=== PATIENT | female | born 1950 | race Caucasian/White ===

== ENCOUNTER 2016-07-12 15:10 | Emergency (ER) | payer MEDICARE ==
[2016-07-12 15:28] VITALS: O2SAT 96
[2016-07-12] MEDS ORDERED: Adacel Vial IM ONE ×2 (15:42→15:44)
--- NOTE | 2016-07-12 15:48 | ERPHSYRPT ---
- History of Present Illness Time Seen by Provider: 07/12/16 15:36 Source: patient, EMS Patient Subjective Stated Complaint: pt arrived ambluance for bleeding poss.from eye, pt has dried blood to face, pt has scant bleeding from tear duct of right eye. pts faced cleansed Triage Nursing Assessment: pt alert and in no distress, resp easy, pt deines nose bleeding, pt not on blood thinners Physician History: CC: bleeding Hx: 65 y/o patient of Dr Ovi Muir with hx of breast CA and congenital rubella. She noted bleeding on her face. Thinks she may have rubbed the eye and it started. She has a small bump on the inner right eyelid where it might have started. Unsure last tetanus buts thinks 7 years ago. 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 No known injury. No nose bleed. No mouth bleeding however the blood was all over. Allergies/Adverse Reactions: amoxicillin [Amoxicillin] Allergy (Mild, Verified 07/12/16 15:28) Home Medications: Dorzolamide HCl [Trusopt] 2 drops OP TID 06/19/12 [History] Latanoprost [Xalatan] 2 drops OP HS 06/19/12 [History] Prochlorperazine Maleate 10 mg [Compazine 10 mg] 10 mg PO Q4-6HPRN PRN 06/19/12 [History] Timolol Maleate 0.5% Eye [Timoptic 0.5% 5 ml Ophthalmic] 1 drop OP DAILY [History] Hx Tetanus, Diphtheria Vaccination/Date Given: Yes Hx Influenza Vaccination/Date Given: Yes Hx Pneumococcal Vaccination/Date Given: Yes Immunizations Up to Date: Yes - Review of Systems Constitutional: No Fever, No Chills Respiratory: No Dyspnea Cardiac: No Chest Pain Abdominal/Gastrointestinal: No Abdominal Pain, No Vomiting - Past Medical History Pertinent Past Medical History: Yes Neurological History: No Pertinent History ENT History: Glaucoma, Other Cardiac History: No Pertinent History Respiratory History: No Pertinent History Endocrine Medical History: No Pertinent History Musculoskeletal History: Arthritis GI Medical History: No Pertinent History History: No Pertinent History Psycho-Social History: No Pertinent History Female Reproductive Disorders: Breast Cancer Other Medical History: blind - Past Surgical History Past Surgical History: Yes Neuro Surgical History: No Pertinent History Cardiac: No Pertinent History Respiratory: No Pertinent History Gastrointestinal: No Pertinent History Genitourinary: No Pertinent History Musculoskeletal: No Pertinent History Female Surgical History: Lumpectomy, Mastectomy Other Surgical History: left breast mastectomy,cvl port placed.,rufus eye surgeries - Social History Smoking Status: Never smoker Exposure to second hand smoke: No Drug Use: none Patient Lives Alone: Yes (assisted living) - Female History Hx Last Menstrual Period: post - Nursing Vital Signs Nursing Vital Signs: Initial Vital Signs Temperature 97.2 F Temperature Source Oral Pulse Rate 106 Respiratory Rate 16 Blood Pressure [Right Arm] 158/94 Pain Intensity 0 - Physical Exam General Appearance: alert Eye Exam: other (left eye cloudy. Right pupil midsized. There is some conjunctival injection. Lesion upper eyelid right medial is not bleeding but could have been the source. No active bleeding here. ) Neck Exam: supple Respiratory Exam: normal breath sounds Cardiovascular Exam: regular rate/rhythm Neurologic Exam: alert, oriented x 3, cooperative Skin Exam: warm, dry SpO2: 96 Oxygen Delivery: Room Air - Course Nursing assessment & vital signs reviewed: Yes Ordered Tests: Active Orders 24 hr Category Date Time Status Wound Care STAT Care 07/12/16 15:42 Active CBC W DIFF Stat Lab 07/12/16 16:00 Completed PROTIME WITH INR Stat Lab 07/12/16 16:00 Completed PTT Stat Lab 07/12/16 16:00 Completed Medication Summary Discontinued Medications Generic Name Dose Route Start Last Admin Trade Name Freq PRN Reason Stop Dose Admin Diphtheria/Tetanus/Acell Pertussis 0.5 ml 07/12/16 15:42 07/12/16 15:45 Adacel Vial IM 07/12/16 15:43 0.5 ml .ONCE ONE Administration Diphtheria/Tetanus/Acell Pertussis Confirm 07/12/16 15:44 Adacel Vial Administered 07/12/16 15:45 Dose 0.5 ml IM .STK-MED ONE Lab/Rad Data: Laboratory Result Diagrams 07/12/16 16:00 Laboratory Results 07/12/16 07/12/16 Range/Units 16:00 16:00 WBC 4.9 (4.0-10.5) K/mm3 RBC 3.78 L (4.1-5.4) M/mm3 Hgb 13.6 (12.0-16.0) gm/dl Hct 38.3 (35-47) % MCV 101.3 H (78-100) fl MCH 35.9 H (26-32) pg MCHC 35.5 (32-36) g/dl RDW 15.1 H (11.5-14.0) % Plt Count 123 L (150-450) K/mm3 MPV 9.5 (6-9.5) fl Gran % 48.9 (36.0-66.0) % Lymphocytes % 25.6 (24.0-44.0) % Monocytes % 20.4 H (0.0-12.0) % Eosinophils % 4.7 (0.00-5.0) % Basophils % 0.4 (0.0-0.4) % Basophils # 0.02 (0-0.4) INR 1.06 (0.8-3.0) PTT 37.3 H (25.3-37.0) SECONDS - Progress Progress Note: 07/12/16 16:56 No further bleeding. Labs reviewed. Advised hold pressure for recurrent bleeding. Advised needs lesion rechecked as may need removal or biopsy. Will return to assisted living. Counseled pt/family regarding: lab results, diagnosis, need for follow-up - Departure Time of Disposition: 16:57 Departure Disposition: Home Clinical Impression: papular lesion right eyelid, hemorrhage right eyelid Condition: Stable Critical Care Time: No Referrals: NATALIA MUIR [ACTIVE STAFF] - Instructions: Removal of Foreign Body From Skin Additional Instructions: Hold pressure for any bleeding. Have Dr Muir check eye lesion in next 2 weeks. REturn for problems or concerns. Do not rub eye. TdaP tetanus vaccine was updated today.
[2016-07-12 16:15] LABS: BASOPHIL % 0.4 % (0.0-0.4); Eosinophil % 4.7 % (0.00-5.0); Granulocytes % 48.9 % (36.0-66.0); Lymphocytes % 25.6 % (24.0-44.0); Mean Cell Volume 101.3 fl (78-100); Mean Platelet Volume 9.5 fl (6-9.5); Monocytes % 20.4 % (0.0-12.0); Platelet Count 123 K/mm3 (150-450); Red Blood Count 3.78 M/mm3 (4.1-5.4); Red Cell Distribution Width 15.1 % (11.5-14.0); White Blood Count 4.9 K/mm3 (4.0-10.5)
[2016-07-12 16:16] LABS: Mean Corpuscular Hemoglobin 35.9 pg (26-32)
[2016-07-12 16:39] LABS: INR 1.06 (0.8-3.0); PROTIME 11.9 SECONDS (9.95-12.35)
[2016-07-12 16:42] LABS: PTT 37.3 SECONDS (25.3-37.0)
[2016-07-12 17:26] VITALS: BP 134/105; PULSE 109
== END 2016-07-12 17:55 | disposition home or self-care (01) ==
LOC: ED 15:10
DX: H02.89 Other specified disorders of eyelid (principal)
CPT/HCPCS: 36415; 85025; 85610; 85730; 90471; 90715; 99282; 99283

== ENCOUNTER 2016-09-07 17:35 | Emergency (ER) | payer MEDICARE ==
[2016-09-07] MEDS ORDERED: TYLENOL 325 MG PO STA (17:54)
--- NOTE | 2016-09-07 17:59 | ERPHSYRPT ---
- History of Present Illness Time Seen by Provider: 09/07/16 17:48 Source: patient Exam Limitations: clinical condition Patient Subjective Stated Complaint: fall Triage Nursing Assessment: fell at noon today gettign off a bus and sprained rt ankle. was walking to dining room anf fell in hallway. swelling noted to rt eye with bruising. abrasion to rt forehead. no other injuries. good sensation to rt ankle. bilat swelling to ankles noted. Physician History: PATIENT WITH HISTORY OF CLINICAL BLINDNESS SINCE , TWISTED HER RIGHT ANKLE WHILE GETTING OFF BUS AT [place] TODAY, THEN TRIPPED ONTO RUG WHILE AMBULATING TO DINNING ROOM STRUCK HER FACE ONTO FLOOR. PATIENT HAS PAIN AND SWELLING BELOW RIGHT EYE. DENIES HEADACHE, NECK PAIN, NUMBNESS, TINGLING OR WEAKNESS IN EXTREMITIES. Occurred: this afternoon Reason for Fall: tripped Injuries/Pain Location: face Loss of Consciousness: no loss of consciousness Severity of Pain-Max: mild Severity of Pain-Current: mild Modifying Factors: Improves With: nothing Associated Symptoms (Fall): other (RIGHT ANKLE PAIN, SWELLING) Allergies/Adverse Reactions: amoxicillin [Amoxicillin] Allergy (Mild, Verified 09/07/16 17:42) Home Medications: Dorzolamide HCl [Trusopt] 2 drops OP TID 06/19/12 [History] Latanoprost [Xalatan] 2 drops OP HS 06/19/12 [History] Timolol Maleate 0.5% Eye [Timoptic 0.5% 5 ml Ophthalmic] 1 drop OP DAILY [History] Hx Tetanus, Diphtheria Vaccination/Date Given: Yes Hx Influenza Vaccination/Date Given: No Hx Pneumococcal Vaccination/Date Given: No Immunizations Up to Date: Yes - Review of Systems Constitutional: No Fever, No Chills Eyes: Other (PAIN, SWELLING BELOW EYE) Ears, Nose, & Throat: No Symptoms Respiratory: No Symptoms, No Cough, No Dyspnea Cardiac: No Symptoms, No Chest Pain, No Edema, No Syncope Abdominal/Gastrointestinal: No Symptoms, No Abdominal Pain, No Nausea, No Vomiting, No Diarrhea Genitourinary Symptoms: No Symptoms, No Dysuria Musculoskeletal: Injury, Joint Pain, Joint Swelling, No Back Pain, No Neck Pain Skin: No Rash Neurological: No Dizziness, No Focal Weakness, No Sensory Changes Psychological: No Symptoms Endocrine: No Symptoms All Other Systems: Reviewed and Negative - Past Medical History Pertinent Past Medical History: Yes Neurological History: No Pertinent History ENT History: Glaucoma, Other Cardiac History: No Pertinent History Respiratory History: No Pertinent History Endocrine Medical History: No Pertinent History Musculoskeletal History: Arthritis GI Medical History: No Pertinent History History: No Pertinent History Psycho-Social History: No Pertinent History Female Reproductive Disorders: Breast Cancer 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 - Past Surgical History Past Surgical History: Yes Neuro Surgical History: No Pertinent History Cardiac: No Pertinent History Respiratory: No Pertinent History Gastrointestinal: No Pertinent History Genitourinary: No Pertinent History Musculoskeletal: No Pertinent History Female Surgical History: Lumpectomy, Mastectomy Other Surgical History: left breast mastectomy,cvl port placed.,rufus eye surgeries - Social History Smoking Status: Never smoker Exposure to second hand smoke: No Drug Use: none Patient Lives Alone: No - Nursing Vital Signs Nursing Vital Signs: Initial Vital Signs Temperature Source Oral Pulse Rate 117 Respiratory Rate 18 Blood Pressure [] 164/94 Pain Intensity 4 - Nena Coma Score Best Eye Response (Nena): (4) open spontaneously Best Verbal Response (Nena): (5) oriented Best Motor Response (Nena): (6) obeys commands L[place] Total: 15 - Physical Exam General Appearance: no apparent distress, alert Head Injury: no evidence of injury Eye Exam: PERRL/EOMI, other (RIGHT INFRAORBITAL SWELLING ECCHYMOSIS, NO FACIAL OR ORBITAL CREPITUS) ENT Exam: airway nml Neck Exam: normal inspection, No tenderness Respiratory/Chest Exam: normal breath sounds, No chest tenderness, No respiratory distress Cardiovascular Exam: normal heart sounds, regular rate/rhythm Gastrointestinal Exam: soft, No tenderness, No distention, No guarding, No ecchymosis Back Exam: normal inspection, No vertebral tenderness Extremity Exam: normal inspection, normal range of motion, pelvis stable, No deformities Peripheral Pulses: carotid (R): 2+, carotid (L): 2+, femoral (R): 2+, femoral (L ): 2+, dorsalis-pedis (R): 2+, dorsalis-pedis (L): 2+ Neurologic Exam: alert, oriented x 3, cooperative, sensation nml, No motor deficits Skin Exam: normal color, warm, dry SpO2 Interpretation: normal SpO2: 95 Oxygen Delivery: Room Air - CT Exams Head CT Interpretation: Tele-radiologist Report, No/Intracranial Hemorrhag Maxillofacial Bones CT Interpretation: Tele-radiologist Report (THERE IS SOFT TISSUE SWELLING/ HEMATOMA OVER THE RIGHT INFERIOR ORBIT AND MAXILLA, NO ASSOCIATE FRACTURE, THE RIGHT GLOBE IS INTACT ) Ordered Tests: Active Orders 24 hr Category Date Time Status ANKLE (3 VIEWS) Stat Exams 09/07/16 17:51 Taken FACIAL BONES WO CONTRAST [CT] Stat Exams 09/07/16 17:52 Taken HEAD WITHOUT CONTRAST [CT] Stat Exams 09/07/16 17:52 Taken Medication Summary Discontinued Medications Generic Name Dose Route Start Last Admin Trade Name Freq PRN Reason Stop Dose Admin Acetaminophen 650 mg 09/07/16 17:54 09/07/16 18:01 Tylenol 325 Mg PO 09/07/16 17:55 650 mg STAT STA Administration Acetaminophen Confirm 09/07/16 18:01 Tylenol 325 Mg Administered 09/07/16 18:02 Dose 650 mg .ROUTE .STK-MED ONE - Progress Progress: pain not gone completely Progress Note: 09/07/16 18:00 PATIENT GIVEN TYLENOL 650MG ORALLY Counseled pt/family regarding: diagnosis, rad results - Departure Time of Disposition: 20:35 Departure Disposition: Home Clinical Impression: RIGHT INFRAORBITAL CONTUSION, RIGHT ANKLE STRAIN Condition: Stable Critical Care Time: No Referrals: NATALIA MUIR [Primary Care Provider] - Additional Instructions: APPLY ICE OVER FACIAL AND ANKLE SWELLING EVERY 4 HOURS, FOR 30 MINUTES WITH A DURATION 48 HOURS. TYLENOL EVERY 4 HOURS FOR PAIN NEEDED. CONTINUE TO AMBULATE WITH CANE ASSISTANCE.
[2016-09-07] MEDS ORDERED: TYLENOL 325 MG ONE (18:01)
[2016-09-07 20:50] VITALS: BP 134/75; PULSE 73; O2SAT 100
--- NOTE | 2016-09-08 08:36 | XRAY ---
Indication: Right facial swelling and bruising following fall. Multiple contiguous axial images obtained through the head without contrast. Comparison: June 29, 2007. There is age-appropriate global atrophy and mild periventricular degenerative micro-ischemia bilaterally. No acute intracranial hemorrhage, abnormal extra-axial fluid collection, or mass effect. Stable empty sella. Fourth ventricle is midline. Bony calvarium intact. Visualized paranasal sinuses and mastoid air cells are pneumatized and clear. CT facial bones reported separately. Impression: 1. Nonacute senile brain. 2. Again anatomic variant for empty sella. Comment: Preliminary interpretation was made by [facility]. No discrepancy. CT DI 47.52
--- NOTE | 2016-09-08 08:42 | XRAY ---
Indication: Right facial swelling and bruising following fall. Multiple contiguous axial images obtained through the facial bones. Coronal reformatted images obtained. Comparison: None. Multiple bilateral dental amalgams produces beam artifact limiting this level. Study is also slightly degraded by motion artifact. Large area of right facial/maxilla soft tissue swelling. No acute fracture or suspicious bony lesions. Left orbit appears clinically deformed with extraorbital metallic density presumed postsurgical. Paranasal sinuses are pneumatized and clear. Minimal nasal septal deviation to the left. CT head reported separately. Impression: 1. Motion artifact. 2. Right facial soft tissue swelling. No acute fracture. 3. Chronic post surgical changes left orbit. Comment: Preliminary interpretation was made by [facility]. No discrepancy. CT DI 59.47
--- NOTE | 2016-09-08 08:45 | XRAY ---
Indication: Pain and swelling following fall. Comparison: None 3 views of the right ankle demonstrates diffuse soft tissue swelling, mild osteopenia, and spurring of the anterior talus. No other bony, articular, or soft tissue abnormalities.
== END 2016-09-07 20:50 | disposition home or self-care (01) ==
LOC: ED 17:35
DX: S00.83XA Contusion of other part of head, initial encounter (principal); S93.401A Sprain of unspecified ligament of right ankle, initial encounter; V79.3XXA Bus occupant (driver) (passenger) injured in unspecified nontraffic accident, initial encounter; H54.0 Blindness, both eyes
CPT/HCPCS: 70450; 70486; 73610; 99284; A9270-GY

== ENCOUNTER 2017-08-20 08:35 | Emergency (ER) | payer MEDICARE ==
[2017-08-20] MEDS ORDERED: Zofran 4 MG/2 ML VIAL IV ONE (08:37)
[2017-08-20] MEDS ORDERED: MORPHINE SULFATE 4 MG INJ IV ONE ×2 (08:38→10:34)
--- NOTE | 2017-08-20 08:44 | ERPHSYRPT ---
- History of Present Illness Time Seen by Provider: 08/20/17 08:36 Source: patient, EMS Physician History: 66 y/o female brought in from [facility] for fall that occurred this morning. Pt mentions she was walking to the bathroom when she felt dizzy, had leg weakness and fell on her right hip. Pt was found on the floor and is not able to put weight on the leg. Pt describes the pain as sharp, constant, 8/10, worse with minimal movement and pt has not taken any pain meds. Pt denies hitting her head but she has lips with dried up blood. No LOC and the patient is not on any blood thinners. Occurred: just prior to arrival Reason for Fall: became dizzy Injuries/Pain Location: pelvis, lower extremity Loss of Consciousness: no loss of consciousness Quality: sharpness Severity of Pain-Max: severe Severity of Pain-Current: severe Modifying Factors: Improves With: nothing Allergies/Adverse Reactions: amoxicillin [Amoxicillin] Allergy (Mild, Verified 08/20/17 09:01) Home Medications: Dorzolamide HCl [Trusopt] 2 drops OP TID 06/19/12 [History] Latanoprost [Xalatan] 2 drops OP HS 06/19/12 [History] Timolol Maleate 0.5% Eye [Timoptic 0.5% 5 ml Ophthalmic] 1 drop OP DAILY [History] Hx Tetanus, Diphtheria Vaccination/Date Given: Yes Hx Influenza Vaccination/Date Given: No Hx Pneumococcal Vaccination/Date Given: No - Review of Systems Constitutional: No Fever, No Chills Eyes: No Symptoms Ears, Nose, & Throat: No Symptoms Respiratory: No Cough, No Dyspnea Cardiac: No Chest Pain, No Edema, No Syncope Abdominal/Gastrointestinal: No Abdominal Pain, No Nausea, No Vomiting, No Diarrhea Genitourinary Symptoms: No Dysuria Musculoskeletal: Fall, Injury, Joint Pain, No Back Pain, No Neck Pain Skin: No Rash Neurological: Dizziness, No Focal Weakness, No Sensory Changes Psychological: No Symptoms Endocrine: No Symptoms All Other Systems: Reviewed and Negative - Past Medical History Pertinent Past Medical History: Yes Neurological History: No Pertinent History ENT History: Glaucoma, Other Cardiac History: No Pertinent History Respiratory History: No Pertinent History Endocrine Medical History: No Pertinent History Musculoskeletal History: Arthritis GI Medical History: No Pertinent History History: No Pertinent History Psycho-Social History: No Pertinent History Female Reproductive Disorders: Breast Cancer 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 - Past Surgical History Past Surgical History: Yes Neuro Surgical History: No Pertinent History Cardiac: No Pertinent History Respiratory: No Pertinent History Gastrointestinal: No Pertinent History Genitourinary: No Pertinent History Musculoskeletal: No Pertinent History Female Surgical History: Lumpectomy, Mastectomy Other Surgical History: left breast mastectomy,cvl port placed.,rufus eye surgeries - Social History Smoking Status: Never smoker Exposure to second hand smoke: No Drug Use: none Patient Lives Alone: No - Nursing Vital Signs Nursing Vital Signs: Initial Vital Signs Temperature 97.6 F 08/20/17 08:42 Pulse Rate 82 08/20/17 08:42 Respiratory Rate 20 08/20/17 08:42 Blood Pressure 165/92 08/20/17 08:42 O2 Sat by Pulse Oximetry 90 L 08/20/17 08:42 Pain Scale Pain Intensity 4 - [place] Coma Score Best Eye Response ([place]): (4) open spontaneously Best Verbal Response (Nena): (5) oriented Best Motor Response (Nena): (6) obeys commands Nena Total: 15 - Physical Exam General Appearance: no apparent distress, alert Head Injury: no evidence of injury Eye Exam: PERRL/EOMI ENT Exam: airway nml Neck Exam: normal inspection, No tenderness Respiratory/Chest Exam: normal breath sounds, No chest tenderness, No respiratory distress Cardiovascular Exam: normal heart sounds, regular rate/rhythm Gastrointestinal Exam: soft, No tenderness, No distention, No guarding, No ecchymosis Back Exam: normal inspection, No vertebral tenderness Extremity Exam: pelvis stable, hip tenderness, pain with movement, other ( tenderness of right hip and right femur), No deformities Neurologic Exam: alert, oriented x 3, cooperative, sensation nml, No motor deficits Skin Exam: normal color, warm, dry - Course Nursing assessment & vital signs reviewed: Yes EKG Interpreted by Me: RATE, NORMAL AXIS, NORMAL INTERVALS, NORMAL QRS, NORMAL ST-T Ordered Tests: Active Orders 24 hr Category Date Time Status Catheter-[place] Brown STAT Care 08/20/17 08:37 Active EKG-ER Only STAT Care 08/20/17 08:37 Active IV Insertion STAT Care 08/20/17 08:37 Active Oxygen-ED Only NASAL CANNULA 2 lpm Care 08/20/17 09:18 Active CHEST 1 VIEW (PORTABLE) Stat Exams 08/20/17 08:38 Taken FEMUR (1V) Stat Exams 08/20/17 10:39 Taken HEAD WITHOUT CONTRAST [CT] Stat Exams 08/20/17 08:38 Taken HIP UNI (2V) INCL PEL IF DONE Stat Exams 08/20/17 10:39 Taken CBC W DIFF Stat Lab 08/20/17 08:50 Completed CMP Stat Lab 08/20/17 08:50 Completed Manual Differential NC Stat Lab 08/20/17 08:50 Completed PT INR [PROTIME WITH INR] Stat Lab 08/20/17 08:50 Completed PTT Stat Lab 08/20/17 08:50 Completed TROPONIN Q3H Lab 08/20/17 08:50 Completed TROPONIN Q3H Lab 08/20/17 11:45 Ordered TROPONIN Q3H Lab 08/20/17 14:45 Ordered TROPONIN Q3H Lab 08/20/17 17:45 Ordered TROPONIN Q3H Lab 08/20/17 20:45 Ordered UA W/ MICROSCOPIC Stat Lab 08/20/17 11:15 Results Medication Summary Generic Name Dose Route Start Last Admin Trade Name Freq PRN Reason Stop Dose Admin Sodium Chloride 1,000 mls @ 100 mls/hr 08/20/17 08:45 08/20/17 09:05 Sodium Chloride 0.9% 1000 Ml IV 09/19/17 08:44 100 mls/hr .Q10H MOSES Administration Discontinued Medications Generic Name Dose Route Start Last Admin Trade Name Freq PRN Reason Stop Dose Admin Morphine Sulfate 4 mg 08/20/17 08:38 08/20/17 09:05 Morphine Sulfate 4 Mg Inj IV 08/20/17 08:39 4 mg STAT ONE Administration Morphine Sulfate Confirm 08/20/17 09:01 Morphine Sulfate 4 Mg Inj Administered 08/20/17 09:02 Dose 4 mg .ROUTE .STK-MED ONE Morphine Sulfate 4 mg 08/20/17 10:34 08/20/17 10:39 Morphine Sulfate 4 Mg Inj IV 08/20/17 10:35 4 mg STAT ONE Administration Morphine Sulfate Confirm 08/20/17 10:38 Morphine Sulfate 4 Mg Inj Administered 08/20/17 10:39 Dose 4 mg .ROUTE .STK-MED ONE Ondansetron HCl 4 mg 08/20/17 08:37 08/20/17 09:05 Zofran 4 Mg/2 Ml Vial IV 08/20/17 08:38 4 mg STAT ONE Administration Ondansetron HCl Confirm 08/20/17 09:01 Zofran 4 Mg/2 Ml Vial Administered 08/20/17 09:02 Dose 4 mg .ROUTE .STK-MED ONE Lab/Rad Data: Laboratory Result Diagrams 08/20/17 08:50 08/20/17 08:50 Laboratory Results 08/20/17 08/20/17 08/20/17 Range/Units 11:15 08:50 08:50 WBC (4.0-10.5) K/mm3 RBC (4.1-5.4) M/mm3 Hgb (12.0-16.0) gm/dl Hct (35-47) % MCV (78-100) fl MCH (26-32) pg MCHC (32-36) g/dl RDW (11.5-14.0) % Plt Count (150-450) K/mm3 MPV (6-9.5) fl Absolute Granulocytes (1.4-6.9) Segmented Neutrophils (36.0-66.0) % Lymphocytes (Manual) (24-44) % Monocytes (Manual) (0.0-12.0) % Eosinophils (Manual) (0.00-3.0) % Differential Comment Platelet Estimate (NORMAL) Anisocytosis INR 1.12 (0.8-3.0) APTT 38.6 H (25.3-37.0) SECONDS Sodium (137-145) mmol/L Potassium (3.5-5.1) mmol/L Chloride (98-107) mmol/L Carbon Dioxide (22-30) mmol/L Anion Gap (5-15) MEQ/L BUN (7-17) mg/dL Creatinine (0.52-1.04) mg/dL Estimated GFR ML/MIN Glucose (74-106) mg/dL Calcium (8.4-10.2) mg/dL Total Bilirubin (0.2-1.3) mg/dL AST (14-36) U/L ALT (0-35) U/L Alkaline Phosphatase (38-126) U/L Troponin I < 0.012 (0.000-0.034) ng/mL Serum Total Protein (6.3-8.2) g/dL Albumin (3.5-5.0) g/dL Ur Collection Type CATH Urine Color YELLOW (YELLOW) Urine Appearance CLOUDY (CLEAR) Urine pH 7.0 (5-6) Ur Specific [place] 1.015 (1.005-1.025) Urine Protein NEGATIVE (Negative) Urine Ketones NEGATIVE (NEGATIVE) Urine Blood 5-10 (0-5) Danilo/ul Urine Nitrite NEGATIVE (NEGATIVE) Urine Bilirubin NEGATIVE (NEGATIVE) Urine Urobilinogen NORMAL (0-1) mg/dL Ur Leukocyte Esterase TRACE (NEGATIVE) Urine Culture Reflexed Pending Urine Glucose NEGATIVE (NEGATIVE) mg/dL Specimen Received 115 08/20/17 08/20/17 08/20/17 Range/Units 08:50 08:50 WBC 5.2 (4.0-10.5) K/mm3 RBC 3.62 L (4.1-5.4) M/mm3 Hgb 13.1 (12.0-16.0) gm/dl Hct 37.4 (35-47) % MCV 103.3 H (78-100) fl MCH 36.1 H (26-32) pg MCHC 35.0 (32-36) g/dl RDW 15.6 H (11.5-14.0) % Plt Count 154 (150-450) K/mm3 MPV 8.8 (6-9.5) fl Absolute Granulocytes 3.02 (1.4-6.9) Segmented Neutrophils 61 (36.0-66.0) % Lymphocytes (Manual) 25 (24-44) % Monocytes (Manual) 12 (0.0-12.0) % Eosinophils (Manual) 2 (0.00-3.0) % Differential Comment ABNORMAL Platelet Estimate NORMAL (NORMAL) Anisocytosis 1+ INR (0.8-3.0) APTT (25.3-37.0) SECONDS Sodium 143 (137-145) mmol/L Potassium 3.8 (3.5-5.1) mmol/L Chloride 108 H (98-107) mmol/L Carbon Dioxide 25 (22-30) mmol/L Anion Gap 13.8 (5-15) MEQ/L BUN 13 (7-17) mg/dL Creatinine 0.63 (0.52-1.04) mg/dL Estimated GFR > 60 ML/MIN Glucose 95 (74-106) mg/dL Calcium 9.6 (8.4-10.2) mg/dL Total Bilirubin 1.30 (0.2-1.3) mg/dL AST 67 H (14-36) U/L ALT 32 (0-35) U/L Alkaline Phosphatase 283 H (38-126) U/L Troponin I (0.000-0.034) ng/mL Serum Total Protein 8.2 (6.3-8.2) g/dL Albumin 3.8 (3.5-5.0) g/dL Ur Collection Type Urine Color (YELLOW) Urine Appearance (CLEAR) Urine pH (5-6) Ur Specific [place] (1.005-1.025) Urine Protein (Negative) Urine Ketones (NEGATIVE) Urine Blood (0-5) Danlio/ul Urine Nitrite (NEGATIVE) Urine Bilirubin (NEGATIVE) Urine Urobilinogen (0-1) mg/dL Ur Leukocyte Esterase (NEGATIVE) Urine Culture Reflexed Urine Glucose (NEGATIVE) mg/dL Specimen Received - Progress Progress: improved Progress Note: 08/20/17 11:28 The x ray of the hip shows an acute right femoral neck fracture. The rest of the labs and image studies are within normal limits. The patient has relief of pain after receiving morphine 4mg X 2 doses. Pt has been accepted by orthopedics , Dr Macias and ER physician, Dr Magaña at [facility]. - Departure Time of Disposition: 11:31 Departure Disposition: Transfer Clinical Impression: Femoral neck fracture Qualifiers: Encounter type: initial encounter Fracture type: closed Laterality: right Qualified Code(s): S72.001A - Fracture of unspecified part of neck of right femur, initial encounter for closed fracture Condition: Stable Critical Care Time: No Referrals: VIKI BARBOZA [Primary Care Provider] -
[2017-08-20] MEDS ORDERED: Sodium Chloride 0.9% 1000 ML 1,000 ML IV SCH (08:45)
[2017-08-20] MEDS ORDERED: Zofran 4 MG/2 ML VIAL ONE (09:01)
[2017-08-20] MEDS ORDERED: MORPHINE SULFATE 4 MG INJ ONE ×2 (09:01→10:38)
[2017-08-20] MEDS ORDERED: Sodium Chloride 0.9% 1000 ML 1,000 ML ONE (09:02)
[2017-08-20 09:10] LABS: Granulocyte Absolute (ANC) 3.02 (1.4-6.9); Hematocrit 37.4 % (35-47); Hemoglobin 13.1 gm/dl (12.0-16.0); Mean Cell Volume 103.3 fl (78-100); Mean Platelet Volume 8.8 fl (6-9.5); Platelet Count 154 K/mm3 (150-450); Red Blood Count 3.62 M/mm3 (4.1-5.4); Red Cell Distribution Width 15.6 % (11.5-14.0); White Blood Count 5.2 K/mm3 (4.0-10.5)
[2017-08-20 09:13] LABS: Mean Corpuscular Hemoglobin 36.1 pg (26-32)
[2017-08-20 09:15] LABS: ALBUMIN 3.8 g/dL (3.5-5.0); ALKALINE PHOSPHATASE 283 U/L (38-126); ANION GAP 13.8 MEQ/L (5-15); BLOOD UREA NITROGEN 13 mg/dL (7-17); CHLORIDE 108 mmol/L (98-107); Calcium 9.6 mg/dL (8.4-10.2); Carbon Dioxide 25 mmol/L (22-30); Creatinine 1 0.63 mg/dL (0.52-1.04); Glucose 95 mg/dL (74-106); Potassium 3.8 mmol/L (3.5-5.1); SGOT/AST 67 U/L (14-36); SGPT/ALT 32 U/L (0-35); SODIUM 143 mmol/L (137-145); Total Protein 8.2 g/dL (6.3-8.2)
[2017-08-20 09:21] LABS: PTT 38.6 SECONDS (25.3-37.0)
[2017-08-20 09:22] LABS: INR 1.12 (0.8-3.0)
[2017-08-20 09:36] LABS: ANISOCYTOSIS 1+; Eosinophil 2 % (0.00-3.0); Lymphocytes 25 % (24-44); Monocyte 12 % (0.0-12.0); Neutrophils 61 % (36.0-66.0); Platelet Estimate NORMAL (NORMAL); Total Cells Counted 100
[2017-08-20 11:26] LABS: Appearance CLOUDY (CLEAR); Bilirubin NEGATIVE (NEGATIVE); Glucose NEGATIVE (NEGATIVE); Ketones NEGATIVE (NEGATIVE); Leukocyte Esterase TRACE (NEGATIVE); Nitrite NEGATIVE (NEGATIVE); Protein,Urine Dip NEGATIVE (Negative); Specific Gravity 1.015 (1.005-1.025); Urobilinogen NORMAL mg/dL (0-1)
[2017-08-20 11:43] VITALS: BP 163/97; PULSE 90; O2SAT 94
[2017-08-20 12:03] LABS: Bacteria MANY /HPF (NEGATIVE); WBC 0-2 /HPF (0-5)
--- NOTE | 2017-08-20 20:48 | XRAY ---
Indication: Head injury following fall. Multiple contiguous axial images obtained through the head without contrast as ordered. Comparison: September 07, 2016. Stable age-appropriate global atrophy and mild periventricular degenerative micro-ischemia bilaterally. Again no acute intracranial hemorrhage, abnormal extra-axial fluid collection, or mass effect. Fourth ventricle is midline. Again anatomic variant for empty sella. Bony calvarium intact. Visualized paranasal sinuses and mastoid air cells clear. Left orbit again appears small with sclerotic calcifications and extraorbital foreign body. Impression: 1. Stable nonacute senile brain. 2. Again anatomic variant for empty sella. Comment: Preliminary interpretation was made by [facility]. No discrepancy. CT DI 49.57
--- NOTE | 2017-08-20 20:52 | XRAY ---
Indication: Status post fall. History left breast cancer. Comparison: January 09, 2010. Portable chest demonstrates new bilateral hilar fullness, bilateral lower lobe interstitial alveolar opacities, and small right effusion. Heart is not enlarged for portable technique. New right-sided Port-A-Cath. Bony thorax intact again with mild osteopenia and degenerative changes. Impression: 1. New bilateral lower lobe interstitial alveolar opacities and right effusion. Correlate clinically. 2. New bilateral hilar fullness, adenopathy versus prominent vascularity. CT chest with contrast may yield further information.
--- NOTE | 2017-08-20 20:54 | XRAY ---
Indication: Pain following injury. Comparison: None Single frontal right femur demonstrates moderate knee degenerative changes and mildly displaced acute femur neck fracture. No other bony, articular, or soft tissue abnormalities.
--- NOTE | 2017-08-20 20:57 | XRAY ---
Indication: Pain following fall. Comparison: None AP pelvis and 2 views of the right hip demonstrates mild osteopenia, mildly displaced acute right femur neck fracture, low lumbar degenerative changes, and pelvic vascular calcifications. No other bony, articular, or soft tissue abnormalities. Comment: Preliminary interpretation was made by [facility]. No discrepancy.
== END 2017-08-20 12:23 | disposition short-term general hospital (02) ==
LOC: ED 08:35
DX: S72.001A Fracture of unspecified part of neck of right femur, initial encounter for closed fracture (principal); R42 Dizziness and giddiness; W18.39XA Other fall on same level, initial encounter; Y92.129 Unspecified place in nursing home as the place of occurrence of the external cause
CPT/HCPCS: 36000; 36415; 51702; 70450; 71045; 73502; 73551; 80053; 81000; 84484; 85025; 85610; 85730; 87077; 87086; 93005; 96360; 96361; 96374; 96375; 99285; J2270; J2405

== ENCOUNTER 2019-03-11 18:00 | Emergency (ER) | payer MEDICARE, OTHER ==
--- NOTE | 2019-03-11 18:10 | ERPHSYRPT ---
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 She was not able to put any weight on the left side, so she was brought into the emergency room by ambulance. It appears to be some shortening of the left side of the leg. ( MANUEL,MICHELLE) Allergies/Adverse Reactions: amoxicillin [Amoxicillin] Allergy (Mild, Verified 03/11/19 18:16) Home Medications: Latanoprost [Xalatan] 2 drops OP HS 06/19/12 [History] - Review of Systems Constitutional: No Symptoms Eyes: No Symptoms Ears, Nose, & Throat: No Symptoms Respiratory: No Symptoms Cardiac: No Symptoms Abdominal/Gastrointestinal: No Symptoms Musculoskeletal: Deformity, Fall, Joint Pain - Past Medical History Pertinent Past Medical History: Yes Neurological History: No Pertinent History ENT History: Glaucoma, Other Cardiac History: No Pertinent History Respiratory History: No Pertinent History Endocrine Medical History: No Pertinent History Musculoskeletal History: Arthritis GI Medical History: No Pertinent History History: No Pertinent History Psycho-Social History: No Pertinent History Female Reproductive Disorders: Breast Cancer 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 - Past Surgical History Past Surgical History: Yes Neuro Surgical History: No Pertinent History Cardiac: No Pertinent History Respiratory: No Pertinent History Gastrointestinal: No Pertinent History Genitourinary: No Pertinent History Musculoskeletal: No Pertinent History Female Surgical History: Lumpectomy, Mastectomy Other Surgical History: left breast mastectomy,cvl port placed.,rufus eye surgeries - Social History Smoking Status: Never smoker Exposure to second hand smoke: No Drug Use: none Patient Lives Alone: No - Physical Exam General Appearance: no apparent distress Eyes, Ears, Nose, Throat Exam: normal ENT inspection Neck Exam: normal inspection Cardiovascular/Respiratory Exam: chest non-tender Gastrointestinal/Abdominal Exam: non-tender Back Exam: normal inspection Hips Exam: left: bone tenderness, deformity, limited range of motion, soft tissue tenderness - Nursing Vital Signs Nursing Vital Signs: Initial Vital Signs Temperature 99.1 F 03/11/19 18:07 Pulse Rate 99 H 03/11/19 18:07 Respiratory Rate 18 03/11/19 18:07 Blood Pressure 148/95 03/11/19 18:07 O2 Sat by Pulse Oximetry 97 03/11/19 18:07 Pain Scale Pain Intensity 5 - Course Nursing assessment & vital signs reviewed: Yes - Radiology Exams Hip X-ray Interpretation: Reviewed by me (left hip greater trochanteric fracture), Discussed w/ radiologist, Teleradiologist Report Ordered Tests: Active Orders 24 hr Category Date Time Status Asher [Catheter-Garwin Asher] STAT Care 03/11/19 19:21 Active CHEST 1 VIEW (PORTABLE) Stat Exams 03/11/19 19:23 Taken HIP UNI (2V) INCL PEL IF DONE Stat Exams 03/11/19 18:55 Taken HUMERUS Stat Exams 03/11/19 19:22 Taken CBC Stat Lab 03/11/19 19:38 Completed CMP Stat Lab 03/11/19 19:38 Received CULTURE,URINE Stat Lab 03/11/19 19:58 Ordered PROTIME WITH INR Stat Lab 03/11/19 19:38 Received UA W/RFX UR CULTURE Stat Lab 03/11/19 19:58 Ordered Medication Summary Discontinued Medications Generic Name Dose Route Start Last Admin Trade Name Roderickq PRN Reason Stop Dose Admin Morphine Sulfate 2 mg 03/11/19 19:22 03/11/19 19:33 Morphine Sulfate 2 Mg Inj IV 03/11/19 19:23 2 mg STAT ONE Administration Morphine Sulfate Confirm 03/11/19 19:28 Morphine Sulfate 2 Mg Inj Administered 03/11/19 19:29 Dose 2 mg .ROUTE .STK-MED ONE Ondansetron HCl 4 mg 03/11/19 19:23 03/11/19 19:33 Zofran 4 Mg/2 Ml Vial IV 03/11/19 19:24 4 mg STAT ONE Administration Ondansetron HCl Confirm 03/11/19 19:28 Zofran Odt 4 Mg Administered 03/11/19 19:29 Dose 4 mg .ROUTE .STK-MED ONE Ondansetron HCl Confirm 03/11/19 19:29 Zofran 4 Mg/2 Ml Vial Administered 03/11/19 19:30 Dose 4 mg .ROUTE .STK-MED ONE Lab/Rad Data: Laboratory Result Diagrams 03/11/19 19:38 Laboratory Results 03/11/19 Range/Units 19:38 WBC 4.2 (4.0-10.5) K/mm3 RBC 3.35 L (4.1-5.4) M/mm3 Hgb 12.7 (12.0-16.0) gm/dl Hct 36.9 (35-47) % MCV 110.1 H (78-100) fl MCH 37.9 H (26-32) pg MCHC 34.4 (32-36) g/dl RDW 16.3 H (11.5-14.0) % Plt Count 91 L (150-450) K/mm3 MPV 9.5 (6-9.5) fl - Progress Progress: unchanged, pain not gone completely Discussed with Dr.: Other (Dr Minh Blankenship at [facility]) Will see patient in: ED Counseled pt/family regarding: diagnosis, need for follow-up, rad results - Progress Progress Note: 03/11/19 20:01 dr. kay did not sign this pt out to me. i was told everything ready for pt to be transferred. pt did not have an iv, labs, or cxr. pt needed a asher so i ordered one. pt had some pain, swelling and bruising left shoulder. so i ordered xrays. transfer paperwork not completed so i completed for dr. kay. (CONNER GERONIMO) - Departure Departure Disposition: Transfer ([facility]) Critical Care Time: Yes Critical Care Time(excluding separately billable procedures): Critical 30-74 mins - Departure Clinical Impression: Femoral neck fracture Qualifiers: Encounter type: initial encounter Fracture type: closed Laterality: left Qualified Code(s): S72.002A - Fracture of unspecified part of neck of left femur , initial encounter for closed fracture Condition: Fair Referrals: XAVI KENNEY MD [Primary Care Provider] -
[2019-03-11] MEDS ORDERED: MORPHINE SULFATE 2 MG INJ IV ONE ×2 (19:22→20:32)
[2019-03-11] MEDS ORDERED: Zofran 4 MG/2 ML VIAL IV ONE (19:23)
[2019-03-11] MEDS ORDERED: ZOFRAN ODT 4 MG ONE (19:28)
[2019-03-11] MEDS ORDERED: MORPHINE SULFATE 2 MG INJ ONE ×2 (19:28→20:30)
[2019-03-11] MEDS ORDERED: Zofran 4 MG/2 ML VIAL ONE (19:29)
[2019-03-11 19:39] LABS: Hematocrit 36.9 % (35-47); Hemoglobin 12.7 gm/dl (12.0-16.0); Mean Cell Volume 110.1 fl (78-100); Mean Corpuscular Hemoglobin 37.9 pg (26-32); Mean Corpuscular Hgb Concent. 34.4 g/dl (32-36); Mean Platelet Volume 9.5 fl (6-9.5); Platelet Count 91 K/mm3 (150-450); Red Blood Count 3.35 M/mm3 (4.1-5.4); Red Cell Distribution Width 16.3 % (11.5-14.0); White Blood Count 4.2 K/mm3 (4.0-10.5)
[2019-03-11 19:50] LABS: ALBUMIN 3.8 g/dL (3.5-5.0); ALKALINE PHOSPHATASE 288 U/L (38-126); ANION GAP 13.7 MEQ/L (5-15); BLOOD UREA NITROGEN 11 mg/dL (7-17); CHLORIDE 108 mmol/L (98-107); Calcium 8.9 mg/dL (8.4-10.2); Carbon Dioxide 24 mmol/L (22-30); Creatinine 1 0.59 mg/dL (0.52-1.04); Glucose 111 mg/dL (74-106); Potassium 3.3 mmol/L (3.5-5.1); SGOT/AST 91 U/L (14-36); SGPT/ALT 41 U/L (0-35); SODIUM 142 mmol/L (137-145); Total Protein 8.1 g/dL (6.3-8.2)
[2019-03-11 20:05] VITALS: PULSE 101
[2019-03-11 20:28] LABS: Appearance CLEAR (CLEAR); Bilirubin NEGATIVE (NEGATIVE); Blood MODERATE Ery/ul (0-5); Glucose NEGATIVE (NEGATIVE); Ketones NEGATIVE (NEGATIVE); Leukocyte Esterase NEGATIVE (NEGATIVE); Mucus SLIGHT /HPF (NEGATIVE); Nitrite NEGATIVE (NEGATIVE); Protein,Urine Dip NEGATIVE (Negative); Specific Gravity 1.009 (1.005-1.025); Urobilinogen NEGATIVE mg/dL (0-1); WBC 0-2 /HPF (0-5)
[2019-03-11 20:55] LABS: INR 1.32 (0.8-3.0)
[2019-03-11 21:17] VITALS: BP 150/86; O2SAT 93
[2019-03-12 00:49] LABS: Slide Review YES
--- NOTE | 2019-03-12 09:00 | XRAY ---
Indication: Hip fracture following fall. Comparison: August 20, 2017. Portable chest is rotated without focal infiltrate, consolidation, or large effusion. Heart is not enlarged again with right Port-A-Cath and hilar calcified nodes. Bony thorax intact again with mild osteopenia and degenerative changes. Impression: Nonacute chest with chronic features.
--- NOTE | 2019-03-12 09:02 | XRAY ---
Indication: Pain following fall. Comparison: None AP pelvis and 2 views of the left hip demonstrates mild osteopenia, displaced/angulated acute left femur neck fracture, intact right total hip arthroplasty, and mild vascular calcifications. No other bony, articular, or soft tissue abnormalities.
--- NOTE | 2019-03-12 09:04 | XRAY ---
Indication: Pain following fall. Comparison: None 2 views of the left humerus demonstrate osteopenia, mild AC degenerative arthropathy, and lateral soft tissue swelling. No other bony, articular, or soft tissue abnormalities.
== END 2019-03-11 20:45 | disposition short-term general hospital (02) ==
LOC: ED 18:00
DX: S72.002A Fracture of unspecified part of neck of left femur, initial encounter for closed fracture (principal); M25.552 Pain in left hip; W18.30XA Fall on same level, unspecified, initial encounter; Y93.01 Activity, walking, marching and hiking
CPT/HCPCS: 36000; 36415; 51702; 71045; 73060; 73502; 80053; 81001; 85027; 85610; 87086; 96374; 96375; 96376; 99285; 99291; J2270; J2405; Q0162

== ENCOUNTER 2019-07-20 03:18 | Inpatient (IN) | payer MEDICARE, OTHER ==
[2019-07-20] MEDS ORDERED: Sodium Chloride 0.9% 1000 ML 1,000 ML IV STA ×2 (03:22→05:11)
[2019-07-20] MEDS ORDERED: Zithromax 500 MG/ 250 ML NaCl Premix 500 MG/250 ML IVPB IV STA (03:30)
[2019-07-20] MEDS ORDERED: Vancomycin 1GM/ Ns 250ML*** 250 ML IV ONE ×2 (03:30→03:55)
[2019-07-20] MEDS ORDERED: Sodium Chloride 0.9% 1000 ML 1,000 ML ONE ×2 (03:36→04:42)
[2019-07-20 03:40] LABS: Hematocrit 39.3 % (35-47); Hemoglobin 13.8 gm/dl (12.0-16.0); Mean Cell Volume 108.9 fl (78-100); Mean Corpuscular Hemoglobin 38.2 pg (26-32); Mean Corpuscular Hgb Concent. 35.1 g/dl (32-36); Mean Platelet Volume 9.1 fl (7.5-11.0); Platelet Count 90 K/mm3 (150-450); Red Blood Count 3.61 M/mm3 (4.1-5.4); Red Cell Distribution Width 16.3 % (11.5-14.0); White Blood Count 3.8 K/mm3 (4.0-10.5)
[2019-07-20 03:51] LABS: ALBUMIN 3.3 g/dL (3.5-5.0); ALKALINE PHOSPHATASE 304 U/L (38-126); ANION GAP 11.4 MEQ/L (5-15); BLOOD UREA NITROGEN 19 mg/dL (7-17); CHLORIDE 109 mmol/L (98-107); Calcium 8.9 mg/dL (8.4-10.2); Carbon Dioxide 24 mmol/L (22-30); Creatinine 1 0.88 mg/dL (0.52-1.04); Glucose 89 mg/dL (74-106); Potassium 3.5 mmol/L (3.5-5.1); SGOT/AST 61 U/L (14-36); SGPT/ALT 30 U/L (0-35); SODIUM 141 mmol/L (137-145); Total Protein 7.5 g/dL (6.3-8.2)
[2019-07-20] MEDS ORDERED: Zithromax 500 MG/ 250 ML NaCl Premix 500 MG/250 ML IVPB IV ONE (03:54)
[2019-07-20 04:01] LABS: Lactic Acid 3.8 (0.4-2.0); VBG BASE EXCESS 0.3 (-2.0-2.0); VBG CARBOXYHEMOGLOBIN 2.1 % T HGB (0.0-6.9); VBG HCO3- 24.6 meq/L (22-28); VBG HEMOGLOBIN 14.6; VBG POTASSIUM 3.8 (3.5-5.1); VBG pH 7.42 (7.32-7.42)
[2019-07-20 04:19] LABS: INR 1.25 (0.8-3.0); PROTIME 14.2 SECONDS (9.95-12.35)
--- NOTE | 2019-07-20 04:21 | ERPHSYRPT ---
- History of Present Illness Time Seen by Provider: 07/20/19 03:30 Source: EMS, long term records Exam Limitations: clinical condition Patient Subjective Stated Complaint: per long term report, pt had sudden onset shortness of breath approx 45 minutes prior to arrival at er. [facility] staff states pt had temp and heart rate of 140. Triage Nursing Assessment: pt awake and alert, asnwers questions approp. pt arrive per ambulance and transfers to stretcher with assist of 4. respirations tachy. frequent hacking cough noted. coarse breath sounds to rt. skin hot and dry. heart rate 136 on monitor- sinus tach. Physician History: Patient is a 68-year-old female who is a resident of [facility] and this morning was found to be in respiratory distress. Initial report from the [facility] was the temperature was 105+. EMS found the temperature to be slightly lower at 101.5 core temperature in the ER with 102.5. She is alert and oriented and answers questions appropriately she has a history of left hip fracture muscle weakness hypertension anxiety blindness glaucoma frequent falls allergic rhinitis constipation urinary incontinence and bilateral lower edema she also is noted to have a mastectomy scar on the left and a port. She is coughing frequently and does produce some bright red blood with her cough. Timing/Duration: hour(s) (1), sudden Activities at Onset: sleep Severity of Dyspnea-Max: moderate Severity of Dyspnea-Current: moderate Possible Cause: unknown cause Modifying Factors: Improves With: albuterol nebulizer, coughing, oxygen Associated Symptoms: cough, fever, ankle swelling, productive cough Allergies/Adverse Reactions: amoxicillin [Amoxicillin] Allergy (Mild, Verified 03/11/19 18:16) Home Medications: Latanoprost [Xalatan] 2 drops OP HS 06/19/12 [History] Hx Tetanus, Diphtheria Vaccination/Date Given: Yes Hx Influenza Vaccination/Date Given: No Hx Pneumococcal Vaccination/Date Given: No Immunizations Up to Date: Yes - Review of Systems All Other Systems: Unable due to condition - Past Medical History Pertinent Past Medical History: Yes Neurological History: No Pertinent History ENT History: Glaucoma, Other Cardiac History: No Pertinent History Respiratory History: No Pertinent History Endocrine Medical History: No Pertinent History Musculoskeletal History: Arthritis GI Medical History: No Pertinent History History: No Pertinent History Psycho-Social History: No Pertinent History Female Reproductive Disorders: Breast Cancer 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 - Past Surgical History Past Surgical History: Yes Neuro Surgical History: No Pertinent History Cardiac: No Pertinent History Respiratory: No Pertinent History Gastrointestinal: No Pertinent History Genitourinary: No Pertinent History Musculoskeletal: No Pertinent History Female Surgical History: Lumpectomy, Mastectomy Other Surgical History: left breast mastectomy,cvl port placed.,rufus eye surgeries. lt hip surgery- fx - Social History Smoking Status: Never smoker Exposure to second hand smoke: No Drug Use: none Patient Lives Alone: No - Nursing Vital Signs Nursing Vital Signs: Initial Vital Signs Temperature 102.6 F 07/20/19 03:22 Pulse Rate 134 H 07/20/19 03:22 Respiratory Rate 30 H 07/20/19 03:22 Blood Pressure 126/78 07/20/19 03:22 O2 Sat by Pulse Oximetry 94 L 07/20/19 03:22 Pain Scale Pain Intensity 0 - Physical Exam General Appearance: alert Eye Exam: eyes nml inspection Ears, Nose, Throat Exam: pharyngeal erythema (It is noted in the mouth fairly bright red especially with a cough) Neck Exam: normal inspection, supple Respiratory Exam: respiratory distress, crackles/rales, rhonchi, wheezing Cardiovascular/Chest Exam: normal heart sounds, tachycardia Abdominal/Gastrointestinal Exam: normal bowel sounds, tenderness, No distention , No mass Extremity Exam: non-tender, normal range of motion, normal inspection, no calf tenderness, pedal edema Peripheral Pulses Exam: carotid (R): 2+, carotid (L): 2+ Neurologic Exam: alert, oriented x 3, cooperative, cardiac surgeon II-XII nml as tested, sensation nml, abnormal cardiac surgeon II-XII (Patient is nonvisual), No motor deficits Skin Exam: normal color, warm, No dry Lymphatic Exam: No adenopathy SpO2 Interpretation: borderline oxygenation SpO2: 98 O2 Delivery: BiPap/CPAP - Course Nursing assessment & vital signs reviewed: Yes EKG Interpreted by Me: RATE ([id number]), Sinus Tach, Left [place] Deviation, NORMAL INTERVALS, NORMAL QRS, Non-specific ST Changes - Radiology Exams Chest X-ray Interpretation: Interpreted by me, Pneumonia (Right lower lobe) Ordered Tests: Active Orders 24 hr Category Date Time Status Personal Banker STAT Care 07/20/19 03:23 Active EKG-ER Only STAT Care 07/20/19 03:22 Active Pulse Oximetry (ED) STAT Care 07/20/19 03:22 Active CHEST 1 VIEW (PORTABLE) Stat Exams 07/20/19 03:39 Taken AMYLASE Stat Lab 07/20/19 04:13 Completed BLOOD CULTURE Stat Lab 07/20/19 04:00 Received CBC W DIFF Stat Lab 07/20/19 03:36 Completed CMP Stat Lab 07/20/19 03:36 Completed CULTURE,URINE Stat Lab 07/20/19 04:00 Received LIPASE Stat Lab 07/20/19 04:13 Completed Lactic Acid Stat Lab 07/20/19 03:53 Completed MAGNESIUM Stat Lab 07/20/19 04:13 Completed Manual Differential NC Stat Lab 07/20/19 03:36 Completed PROTIME WITH INR Stat Lab 07/20/19 03:30 Completed PTT Stat Lab 07/20/19 03:30 Completed TROPONIN Q3H Lab 07/20/19 04:11 Completed TROPONIN Q3H Lab 07/20/19 07:00 Ordered TROPONIN Q3H Lab 07/20/19 10:00 Ordered TROPONIN Q3H Lab 07/20/19 13:00 Ordered TROPONIN Q3H Lab 07/20/19 16:00 Ordered TROPONIN Q3H Lab 07/20/19 19:00 Ordered TROPONIN Q3H Lab 07/20/19 22:00 Ordered UA W/RFX UR CULTURE Stat Lab 07/20/19 04:00 Completed VENOUS BLOOD GAS Stat Lab 07/20/19 03:53 Completed Medication Summary Generic Name Dose Route Start Last Admin Trade Name Freq PRN Reason Stop Dose Admin Aztreonam 1 gm in 100 mls @ 200 mls/hr 07/20/19 03:30 07/20/19 05:06 Azactam 1 Gm/100 Ml D5w IV 07/20/19 04:59 200 mls/hr Q1H MOSES 200 mls/hr Administration Sodium Chloride 1,000 mls @ 999 mls/hr 07/20/19 05:11 07/20/19 05:14 Sodium Chloride 0.9% 1000 Ml IV 07/20/19 06:11 999 mls/hr .Q1H1M STA Administration Discontinued Medications Generic Name Dose Route Start Last Admin Trade Name Freq PRN Reason Stop Dose Admin Sodium Chloride 1,000 mls @ 999 mls/hr 07/20/19 03:22 07/20/19 03:51 Sodium Chloride 0.9% 1000 Ml IV 07/20/19 04:22 999 mls/hr .Q1H1M STA Administration Sodium Chloride Confirm 07/20/19 03:36 Sodium Chloride 0.9% 1000 Ml Administered 07/20/19 03:37 Dose 1,000 mls @ ud .ROUTE .STK-MED ONE Vancomycin HCl 250 mls @ 167 mls/hr 07/20/19 03:30 07/20/19 03:55 Vancomycin 1gm/ Ns 250ml IV 07/20/19 04:59 167 mls/hr STAT ONE Administration Azithromycin 500 mg in 250 mls @ 250 mls/hr 07/20/19 03:30 07/20/19 03:56 Zithromax 500 Mg/ 250 Ml Nacl Premix IV 07/20/19 04:29 250 mls/hr STAT STA 250 mls/hr Administration Azithromycin Confirm 07/20/19 03:54 Zithromax 500 Mg/ 250 Ml Nacl Premix Administered 07/20/19 03:55 Dose 500 mg in 250 mls @ ud IV .STK-MED ONE Vancomycin HCl Confirm 07/20/19 03:55 Vancomycin 1gm/ Ns 250ml Administered 07/20/19 03:56 Dose 250 mls @ ud IV .STK-MED ONE Sodium Chloride Confirm 07/20/19 04:42 Sodium Chloride 0.9% 1000 Ml Administered 07/20/19 04:43 Dose 1,000 mls @ ud .ROUTE .STK-MED ONE Lab/Rad Data: Laboratory Result Diagrams 07/20/19 03:36 07/20/19 03:36 Laboratory Results 07/20/19 07/20/19 07/20/19 Range/Units 04:13 04:11 04:01 WBC (4.0-10.5) K/mm3 RBC (4.1-5.4) M/mm3 Hgb (12.0-16.0) gm/dl Hct (35-47) % MCV (78-100) fl MCH (26-32) pg MCHC (32-36) g/dl RDW (11.5-14.0) % Plt Count (150-450) K/mm3 MPV (7.5-11.0) fl PT (9.95-12.35) SECONDS INR (0.8-3.0) APTT (25.3-37.0) SECONDS pO2/FiO2 Ratio % VBG pH (7.32-7.42) VBG pCO2 at Pat Temp (42-55) mm/Hg VBG pO2 at Pat Temp (25-40) mm/Hg VBG HCO3 (22-28) meq/L VBG O2 Sat (Walter) (95-100) VBG Base Excess (-2.0-2.0) VBG Hemoglobin VBG Carboxyhemoglobin (0.0-6.9) % T HGB POC Potassium (3.5-5.1) Sodium (137-145) mmol/L Potassium (3.5-5.1) mmol/L Chloride (98-107) mmol/L Carbon Dioxide (22-30) mmol/L Anion Gap (5-15) MEQ/L BUN (7-17) mg/dL Creatinine (0.52-1.04) mg/dL Estimated GFR ML/MIN Glucose (74-106) mg/dL Lactic Acid (0.4-2.0) Calcium (8.4-10.2) mg/dL Magnesium 1.5 L (1.6-2.3) mg/dL Total Bilirubin (0.2-1.3) mg/dL AST (14-36) U/L ALT (0-35) U/L Alkaline Phosphatase (38-126) U/L Troponin I < 0.012 (0.000-0.034) ng/mL Serum Total Protein (6.3-8.2) g/dL Albumin (3.5-5.0) g/dL Amylase 59 (30-110) U/L Lipase 61 (23-300) U/L Urine Color (YELLOW) Urine Appearance (CLEAR) Urine pH (5-6) Ur Specific [place] (1.005-1.025) Urine Protein (Negative) Urine Ketones (NEGATIVE) Urine Blood (0-5) Danilo/ul Urine Nitrite (NEGATIVE) Urine Bilirubin (NEGATIVE) Urine Urobilinogen (0-1) mg/dL Ur Leukocyte Esterase (NEGATIVE) Urine WBC (Auto) (0-5) /HPF Urine RBC (Auto) (0-2) /HPF U Epithel Cells (Auto) (FEW) /HPF Urine Bacteria (Auto) (NEGATIVE) /HPF Unidentified Crystals (NEGATIVE) /HPF Urine Mucus (Auto) (NEGATIVE) /HPF Urine Culture Reflexed (NO) Urine Glucose (NEGATIVE) mg/dL Influenza Type A Ag NEGATIVE (NEGATIVE) Influenza Type B Ag NEGATIVE (NEGATIVE) RSV (PCR) NEGATIVE (Negative) Group A Strep Antibody NEGATIVE (NEGATIVE) 07/20/19 07/20/19 07/20/19 Range/Units 04:00 03:53 03:36 WBC (4.0-10.5) K/mm3 RBC (4.1-5.4) M/mm3 Hgb (12.0-16.0) gm/dl Hct (35-47) % MCV (78-100) fl MCH (26-32) pg MCHC (32-36) g/dl RDW (11.5-14.0) % Plt Count (150-450) K/mm3 MPV (7.5-11.0) fl PT (9.95-12.35) SECONDS INR (0.8-3.0) APTT (25.3-37.0) SECONDS pO2/FiO2 Ratio 40.0 % VBG pH 7.42 (7.32-7.42) VBG pCO2 at Pat Temp 38 L (42-55) mm/Hg VBG pO2 at Pat Temp 36 (25-40) mm/Hg VBG HCO3 24.6 (22-28) meq/L VBG O2 Sat (Walter) 62.0 L (95-100) VBG Base Excess 0.3 (-2.0-2.0) VBG Hemoglobin 14.6 VBG Carboxyhemoglobin 2.1 (0.0-6.9) % T HGB POC Potassium 3.8 (3.5-5.1) Sodium 141 (137-145) mmol/L Potassium 3.5 (3.5-5.1) mmol/L Chloride 109 H (98-107) mmol/L Carbon Dioxide 24 (22-30) mmol/L Anion Gap 11.4 (5-15) MEQ/L BUN 19 H (7-17) mg/dL Creatinine 0.88 (0.52-1.04) mg/dL Estimated GFR > 60.0 ML/MIN Glucose 89 (74-106) mg/dL Lactic Acid 3.8 H (0.4-2.0) Calcium 8.9 (8.4-10.2) mg/dL Magnesium (1.6-2.3) mg/dL Total Bilirubin 2.80 H (0.2-1.3) mg/dL AST 61 H (14-36) U/L ALT 30 (0-35) U/L Alkaline Phosphatase 304 H (38-126) U/L Troponin I (0.000-0.034) ng/mL Serum Total Protein 7.5 (6.3-8.2) g/dL Albumin 3.3 L (3.5-5.0) g/dL Amylase (30-110) U/L Lipase (23-300) U/L Urine Color YELLOW (YELLOW) Urine Appearance SLIGHTLY CLOUDY (CLEAR) Urine pH 7.0 (5-6) Ur Specific [place] 1.011 (1.005-1.025) Urine Protein 30 (Negative) Urine Ketones NEGATIVE (NEGATIVE) Urine Blood LARGE (0-5) Danilo/ul Urine Nitrite POSITIVE (NEGATIVE) Urine Bilirubin NEGATIVE (NEGATIVE) Urine Urobilinogen 2 (0-1) mg/dL Ur Leukocyte Esterase SMALL (NEGATIVE) Urine WBC (Auto) 26-50 (0-5) /HPF Urine RBC (Auto) >101 (0-2) /HPF U Epithel Cells (Auto) NONE (FEW) /HPF Urine Bacteria (Auto) PACKED (NEGATIVE) /HPF Unidentified Crystals 25-50 (NEGATIVE) /HPF Urine Mucus (Auto) SLIGHT (NEGATIVE) /HPF Urine Culture Reflexed ORDERED SEPARATELY (NO) Urine Glucose NEGATIVE (NEGATIVE) mg/dL Influenza Type A Ag (NEGATIVE) Influenza Type B Ag (NEGATIVE) RSV (PCR) (Negative) Group A Strep Antibody (NEGATIVE) 07/20/19 07/20/19 Range/Units 03:36 03:30 WBC 3.8 L (4.0-10.5) K/mm3 RBC 3.61 L (4.1-5.4) M/mm3 Hgb 13.8 (12.0-16.0) gm/dl Hct 39.3 (35-47) % MCV 108.9 H (78-100) fl MCH 38.2 H (26-32) pg MCHC 35.1 (32-36) g/dl RDW 16.3 H (11.5-14.0) % Plt Count 90 L (150-450) K/mm3 MPV 9.1 (7.5-11.0) fl PT 14.2 H (9.95-12.35) SECONDS INR 1.25 (0.8-3.0) APTT 29.0 (25.3-37.0) SECONDS pO2/FiO2 Ratio % VBG pH (7.32-7.42) VBG pCO2 at Pat Temp (42-55) mm/Hg VBG pO2 at Pat Temp (25-40) mm/Hg VBG HCO3 (22-28) meq/L VBG O2 Sat (Walter) (95-100) VBG Base Excess (-2.0-2.0) VBG Hemoglobin VBG Carboxyhemoglobin (0.0-6.9) % T HGB POC Potassium (3.5-5.1) Sodium (137-145) mmol/L Potassium (3.5-5.1) mmol/L Chloride (98-107) mmol/L Carbon Dioxide (22-30) mmol/L Anion Gap (5-15) MEQ/L BUN (7-17) mg/dL Creatinine (0.52-1.04) mg/dL Estimated GFR ML/MIN Glucose (74-106) mg/dL Lactic Acid (0.4-2.0) Calcium (8.4-10.2) mg/dL Magnesium (1.6-2.3) mg/dL Total Bilirubin (0.2-1.3) mg/dL AST (14-36) U/L ALT (0-35) U/L Alkaline Phosphatase (38-126) U/L Troponin I (0.000-0.034) ng/mL Serum Total Protein (6.3-8.2) g/dL Albumin (3.5-5.0) g/dL Amylase (30-110) U/L Lipase (23-300) U/L Urine Color (YELLOW) Urine Appearance (CLEAR) Urine pH (5-6) Ur Specific [place] (1.005-1.025) Urine Protein (Negative) Urine Ketones (NEGATIVE) Urine Blood (0-5) Danilo/ul Urine Nitrite (NEGATIVE) Urine Bilirubin (NEGATIVE) Urine Urobilinogen (0-1) mg/dL Ur Leukocyte Esterase (NEGATIVE) Urine WBC (Auto) (0-5) /HPF Urine RBC (Auto) (0-2) /HPF U Epithel Cells (Auto) (FEW) /HPF Urine Bacteria (Auto) (NEGATIVE) /HPF Unidentified Crystals (NEGATIVE) /HPF Urine Mucus (Auto) (NEGATIVE) /HPF Urine Culture Reflexed (NO) Urine Glucose (NEGATIVE) mg/dL Influenza Type A Ag (NEGATIVE) Influenza Type B Ag (NEGATIVE) RSV (PCR) (Negative) Group A Strep Antibody (NEGATIVE) - Progress Progress: improved Air Movement: fair Blood Culture(s) Obtained: Yes Antibiotics given: Yes Discussed with : Yoan Will see patient in: hospital (full admit) - Departure Departure Disposition: In-patient Admission Clinical Impression: Sepsis, Pneumonia, UTI (urinary tract infection) Condition: Critical Critical Care Time: Yes Critical Care Time(excluding separately billable procedures): Critical 105-134 mins Referrals: JENNY ARITA [Primary Care Provider] -
[2019-07-20 04:22] LABS: MAGNESIUM 1.5 mg/dL (1.6-2.3)
[2019-07-20 04:32] LABS: Appearance SLIGHTLY CLOUDY (CLEAR); Bacteria PACKED /HPF (NEGATIVE); Bilirubin NEGATIVE (NEGATIVE); Blood LARGE Ery/ul (0-5); Crystals Unidentified 25-50 /HPF (NEGATIVE); Glucose NEGATIVE (NEGATIVE); Ketones NEGATIVE (NEGATIVE); Leukocyte Esterase SMALL (NEGATIVE); Mucus SLIGHT /HPF (NEGATIVE); Nitrite POSITIVE (NEGATIVE); Protein,Urine Dip 30 (Negative); Specific Gravity 1.011 (1.005-1.025); Urobilinogen 2 mg/dL (0-1); WBC 26-50 /HPF (0-5)
[2019-07-20 05:00] LABS: RBC >101 /HPF (0-2)
[2019-07-20 05:04] LABS: Group A Strep NEGATIVE (NEGATIVE); INFLUENZA A NEGATIVE (NEGATIVE); INFLUENZA B NEGATIVE (NEGATIVE); RESPIRATORY SYNCTIAL VIRUS NEGATIVE (Negative)
[2019-07-20] MEDS: Azactam 1 GM/100 ML D5W 1 GM/100 ML IVPB IV SCH ×4 (05:04→21:31)
[2019-07-20 05:41] LABS: BAND 26 % (0.0-2.0); Eosinophil 2 % (0.00-3.0); Lymphocytes 7 % (24-44); Metamyelocyte 1 %; Neutrophils 64 % (36.0-66.0); Platelet Estimate NORMAL (NORMAL); Total Cells Counted 100
--- NOTE | 2019-07-20 09:10 | XRAY ---
Indication: Fever, short of breath, and history lung cancer. Comparison: March 11, 2019. Portable chest again rotated with chronic lung markings. No focal infiltrate, consolidation, or large effusion. Heart is not enlarged again with right Port-A-Cath and hilar calcified nodes. Bony thorax intact again with mild osteopenia and degenerative changes. Impression: Stable nonacute chest with chronic features.
--- NOTE | 2019-07-20 09:29 | PCM.HP ---
History of Present Illness - Chief Complaint Chief Complaint: Pneumonia History of Present Illness: is a 68 year old female resident of [facility] who was sent to the ER last night for evaluation of respiratory distress and fever, she states she has had a productive cough with some associated hemoptysis. 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 She denies any chest pain, she is currently not short of breath. she has no cardiac history. she also reports some rectal bleeding at the [facility] but none present since admission - Review of Systems Constitutional: Fever, Chills Ears, Nose, & Throat: No Symptoms Respiratory: Cough Cardiac: No Chest Pain, No Edema, No Syncope Genitourinary Symptoms: Incontinence Skin: No Rash All Other Systems: Reviewed and Negative Medications & Allergies Home Medications: Home Medication List Latanoprost [Xalatan] 1 drops OP HS 06/19/12 [History Confirmed 07/20/19] Acetaminophen 325 mg [Tylenol 325 mg] 650 mg PO Q4HPRN PRN 07/20/19 [ History Confirmed 07/20/19] Acetaminophen 500 mg [Tylenol Extra Strength 500 mg] 1,000 mg PO Q6H PRN PRN 07/20/19 [History Confirmed 07/20/19] Albuterol/Ipratropium 3ml Neb* [DUONEB 0.5-3 MG/3 ml Neb] 3 ml IH Q6H PRN PRN 07/20/19 [History Confirmed 07/20/19] Benzonatate [Tessalon Perle] 100 mg PO TID 07/20/19 [History Confirmed 07/20/19] Calcium Carbonate [Oysco-500] 500 mg PO DAILY 07/20/19 [History Confirmed ] Cyanocobalamin (Vitamin B-12) [Vitamin B-12] 1,000 mcg PO DAILY 07/20/19 [ History Confirmed 07/20/19] Diphenhydramine HCl 12.5 mg/5* [Benadryl 12.5 mg/5 ml] 10 mg PO Q4HPRN PRN [History Confirmed 07/20/19] Ferrous Sulfate 325 mg [Feosol 325 mg] 325 mg PO BID 07/20/19 [History Confirmed 07/20/19] Fluticasone Propionate [Flonase NASAL] 2 sprays NS BID 07/20/19 [History Confirmed 07/20/19] Furosemide 20 mg [Lasix 20 mg] 20 mg PO DAILY 07/20/19 [History Confirmed 07/20/19] Multivitamin/Iron/Folic Acid [Cerovite Advanced Form Tab] 1 tab PO DAILY [History Confirmed 07/20/19] Normal Saline [Normal Saline Flush] 5 ml IV UD 07/20/19 [History Confirmed 07/20] Ondansetron ODT 4 MG [Zofran Odt 4 mg] 4 mg PO Q8H PRN PRN 07/20/19 [ History Confirmed 07/20/19] Oxybutynin Chloride Xl 5 mg [Ditropan XL 5 MG] 5 mg PO DAILY 07/20/19 [ History Confirmed 07/20/19] Prednisone 5 mg [Deltasone 5 mg] 5 mg PO BID 07/20/19 [History Confirmed 07/20/19] Sennosides/Docusate Sodium [Senna-S Tablet] 1 each PO BID 07/20/19 [History Confirmed 07/20/19] Allergies/Adverse Reactions: Allergies Allergy/AdvReac Type Severity Reaction Status Date / Time amoxicillin [Amoxicillin] Allergy Mild Verified 07/20/19 05:39 - Past Medical History Past Medical History: Yes Neurological History: No Pertinent History ENT History: Glaucoma, Other Cardiac History: Hypertension Respiratory History: No Pertinent History Endocrine Medical History: No Pertinent History Musculoskelatal History: Arthritis, Fractures GI Medical History: No Pertinent History History: No Pertinent History Pyscho-Social History: Anxiety Reproductive Disorders: Breast Cancer Comment: blind since from cataracts; left hip fracture - Past Surgical History Past Surgical History: Yes Neuro Surgical History: No Pertinent History Cardiac History: No Pertinent History Respiratory Surgery: No Pertinent History GI Surgical History: No Pertinent History Genitourinary Surgical Hx: No Pertinent History Musculskeletal Surgical Hx: No Pertinent History Female Surgical History: Lumpectomy, Mastectomy Other Surgical History: left breast mastectomy,cvl port placed.,rufus eye surgeries. lt hip surgery- fx - Social History Smoking Status: Never smoker Exposure to second hand smoke: No Alcohol: None Drug Use: none - Physical Exam Vital Signs: Vital Signs - 24 hr Temp Pulse Resp BP Pulse Ox 07/20/19 07:23 99.1 F 97 H 16 115/80 98 07/20/19 06:51 99.5 F 98 H 18 122/79 97 07/20/19 06:15 94 H 17 110/74 96 07/20/19 05:37 100.2 F 100 H 16 120/85 96 07/20/19 05:19 98 07/20/19 05:15 100.4 F 103 H 18 123/79 97 07/20/19 05:00 100.6 F 109 H 19 125/74 96 07/20/19 04:45 112 H 20 127/85 97 07/20/19 04:30 118 H 18 121/78 97 07/20/19 04:15 121 H 25 H 136/84 98 07/20/19 04:09 102.9 F 124 H 30 H 136/80 98 07/20/19 03:23 98 07/20/19 03:22 102.6 F 134 H 38 H 126/78 98 General Appearance: no apparent distress Neurologic Exam: alert, oriented x 3, cooperative Ears, Nose, Throat Exam: other (dried blood on teeth and lips) Respiratory Exam: rhonchi Cardiovascular Exam: regular rate/rhythm, normal heart sounds, normal peripheral pulses Gastrointestinal/Abdomen Exam: soft, normal bowel sounds, No tenderness, No mass Extremity Exam: pedal edema Skin Exam: normal color, warm, dry Results - Labs Lab/Micro Results: Lab Results-Last 24 Hours 07/20/19 07/20/19 07/20/19 Range/Units 03:30 03:36 03:36 WBC 3.8 L (4.0-10.5) K/mm3 RBC 3.61 L (4.1-5.4) M/mm3 Hgb 13.8 (12.0-16.0) gm/dl Hct 39.3 (35-47) % MCV 108.9 H (78-100) fl MCH 38.2 H (26-32) pg MCHC 35.1 (32-36) g/dl RDW 16.3 H (11.5-14.0) % Plt Count 90 L (150-450) K/mm3 MPV 9.1 (7.5-11.0) fl Segmented Neutrophils 64 (36.0-66.0) % Band Neutrophils 26 H (0.0-2.0) % Lymphocytes (Manual) 7 L (24-44) % Eosinophils (Manual) 2 (0.00-3.0) % Metamyelocytes 1 % Platelet Estimate NORMAL (NORMAL) RBC Morphology NORMAL PT 14.2 H (9.95-12.35) SECONDS INR 1.25 (0.8-3.0) APTT 29.0 (25.3-37.0) SECONDS pO2/FiO2 Ratio % VBG pH (7.32-7.42) VBG pCO2 at Pat Temp (42-55) mm/Hg VBG pO2 at Pat Temp (25-40) mm/Hg VBG HCO3 (22-28) meq/L VBG O2 Sat (Walter) (95-100) VBG Base Excess (-2.0-2.0) VBG Hemoglobin VBG Carboxyhemoglobin (0.0-6.9) % T HGB POC Potassium (3.5-5.1) Sodium 141 (137-145) mmol/L Potassium 3.5 (3.5-5.1) mmol/L Chloride 109 H (98-107) mmol/L Carbon Dioxide 24 (22-30) mmol/L Anion Gap 11.4 (5-15) MEQ/L BUN 19 H (7-17) mg/dL Creatinine 0.88 (0.52-1.04) mg/dL Estimated GFR > 60.0 ML/MIN Glucose 89 (74-106) mg/dL Lactic Acid (0.4-2.0) Calcium 8.9 (8.4-10.2) mg/dL Magnesium (1.6-2.3) mg/dL Total Bilirubin 2.80 H (0.2-1.3) mg/dL AST 61 H (14-36) U/L ALT 30 (0-35) U/L Alkaline Phosphatase 304 H (38-126) U/L Troponin I (0.000-0.034) ng/mL Serum Total Protein 7.5 (6.3-8.2) g/dL Albumin 3.3 L (3.5-5.0) g/dL Amylase (30-110) U/L Lipase (23-300) U/L Urine Color (YELLOW) Urine Appearance (CLEAR) Urine pH (5-6) Ur Specific Amber (1.005-1.025) Urine Protein (Negative) Urine Ketones (NEGATIVE) Urine Blood (0-5) Danilo/ul Urine Nitrite (NEGATIVE) Urine Bilirubin (NEGATIVE) Urine Urobilinogen (0-1) mg/dL Ur Leukocyte Esterase (NEGATIVE) Urine WBC (Auto) (0-5) /HPF Urine RBC (Auto) (0-2) /HPF U Epithel Cells (Auto) (FEW) /HPF Urine Bacteria (Auto) (NEGATIVE) /HPF Unidentified Crystals (NEGATIVE) /HPF Urine Mucus (Auto) (NEGATIVE) /HPF Urine Culture Reflexed (NO) Urine Glucose (NEGATIVE) mg/dL Influenza Type A Ag (NEGATIVE) Influenza Type B Ag (NEGATIVE) RSV (PCR) (Negative) Group A Strep Antibody (NEGATIVE) 07/20/19 07/20/19 07/20/19 Range/Units 03:53 04:00 04:01 WBC (4.0-10.5) K/mm3 RBC (4.1-5.4) M/mm3 Hgb (12.0-16.0) gm/dl Hct (35-47) % MCV (78-100) fl MCH (26-32) pg MCHC (32-36) g/dl RDW (11.5-14.0) % Plt Count (150-450) K/mm3 MPV (7.5-11.0) fl Segmented Neutrophils (36.0-66.0) % Band Neutrophils (0.0-2.0) % Lymphocytes (Manual) (24-44) % Eosinophils (Manual) (0.00-3.0) % Metamyelocytes % Platelet Estimate (NORMAL) RBC Morphology PT (9.95-12.35) SECONDS INR (0.8-3.0) APTT (25.3-37.0) SECONDS pO2/FiO2 Ratio 40.0 % VBG pH 7.42 (7.32-7.42) VBG pCO2 at Pat Temp 38 L (42-55) mm/Hg VBG pO2 at Pat Temp 36 (25-40) mm/Hg VBG HCO3 24.6 (22-28) meq/L VBG O2 Sat (Walter) 62.0 L (95-100) VBG Base Excess 0.3 (-2.0-2.0) VBG Hemoglobin 14.6 VBG Carboxyhemoglobin 2.1 (0.0-6.9) % T HGB POC Potassium 3.8 (3.5-5.1) Sodium (137-145) mmol/L Potassium (3.5-5.1) mmol/L Chloride (98-107) mmol/L Carbon Dioxide (22-30) mmol/L Anion Gap (5-15) MEQ/L BUN (7-17) mg/dL Creatinine (0.52-1.04) mg/dL Estimated GFR ML/MIN Glucose (74-106) mg/dL Lactic Acid 3.8 H (0.4-2.0) Calcium (8.4-10.2) mg/dL Magnesium (1.6-2.3) mg/dL Total Bilirubin (0.2-1.3) mg/dL AST (14-36) U/L ALT (0-35) U/L Alkaline Phosphatase (38-126) U/L Troponin I (0.000-0.034) ng/mL Serum Total Protein (6.3-8.2) g/dL Albumin (3.5-5.0) g/dL Amylase (30-110) U/L Lipase (23-300) U/L Urine Color YELLOW (YELLOW) Urine Appearance SLIGHTLY CLOUDY (CLEAR) Urine pH 7.0 (5-6) Ur Specific Amber 1.011 (1.005-1.025) Urine Protein 30 (Negative) Urine Ketones NEGATIVE (NEGATIVE) Urine Blood LARGE (0-5) Danilo/ul Urine Nitrite POSITIVE (NEGATIVE) Urine Bilirubin NEGATIVE (NEGATIVE) Urine Urobilinogen 2 (0-1) mg/dL Ur Leukocyte Esterase SMALL (NEGATIVE) Urine WBC (Auto) 26-50 (0-5) /HPF Urine RBC (Auto) >101 (0-2) /HPF U Epithel Cells (Auto) NONE (FEW) /HPF Urine Bacteria (Auto) PACKED (NEGATIVE) /HPF Unidentified Crystals 25-50 (NEGATIVE) /HPF Urine Mucus (Auto) SLIGHT (NEGATIVE) /HPF Urine Culture Reflexed ORDERED SEPARATELY (NO) Urine Glucose NEGATIVE (NEGATIVE) mg/dL Influenza Type A Ag NEGATIVE (NEGATIVE) Influenza Type B Ag NEGATIVE (NEGATIVE) RSV (PCR) NEGATIVE (Negative) Group A Strep Antibody NEGATIVE (NEGATIVE) 07/20/19 07/20/19 07/20/19 Range/Units 04:11 04:13 06:01 WBC (4.0-10.5) K/mm3 RBC (4.1-5.4) M/mm3 Hgb (12.0-16.0) gm/dl Hct (35-47) % MCV (78-100) fl MCH (26-32) pg MCHC (32-36) g/dl RDW (11.5-14.0) % Plt Count (150-450) K/mm3 MPV (7.5-11.0) fl Segmented Neutrophils (36.0-66.0) % Band Neutrophils (0.0-2.0) % Lymphocytes (Manual) (24-44) % Eosinophils (Manual) (0.00-3.0) % Metamyelocytes % Platelet Estimate (NORMAL) RBC Morphology PT (9.95-12.35) SECONDS INR (0.8-3.0) APTT (25.3-37.0) SECONDS pO2/FiO2 Ratio % VBG pH (7.32-7.42) VBG pCO2 at Pat Temp (42-55) mm/Hg VBG pO2 at Pat Temp (25-40) mm/Hg VBG HCO3 (22-28) meq/L VBG O2 Sat (Walter) (95-100) VBG Base Excess (-2.0-2.0) VBG Hemoglobin VBG Carboxyhemoglobin (0.0-6.9) % T HGB POC Potassium (3.5-5.1) Sodium (137-145) mmol/L Potassium (3.5-5.1) mmol/L Chloride (98-107) mmol/L Carbon Dioxide (22-30) mmol/L Anion Gap (5-15) MEQ/L BUN (7-17) mg/dL Creatinine (0.52-1.04) mg/dL Estimated GFR ML/MIN Glucose (74-106) mg/dL Lactic Acid 2.0 (0.4-2.0) Calcium (8.4-10.2) mg/dL Magnesium 1.5 L (1.6-2.3) mg/dL Total Bilirubin (0.2-1.3) mg/dL AST (14-36) U/L ALT (0-35) U/L Alkaline Phosphatase (38-126) U/L Troponin I < 0.012 (0.000-0.034) ng/mL Serum Total Protein (6.3-8.2) g/dL Albumin (3.5-5.0) g/dL Amylase 59 (30-110) U/L Lipase 61 (23-300) U/L Urine Color (YELLOW) Urine Appearance (CLEAR) Urine pH (5-6) Ur Specific Amber (1.005-1.025) Urine Protein (Negative) Urine Ketones (NEGATIVE) Urine Blood (0-5) Danilo/ul Urine Nitrite (NEGATIVE) Urine Bilirubin (NEGATIVE) Urine Urobilinogen (0-1) mg/dL Ur Leukocyte Esterase (NEGATIVE) Urine WBC (Auto) (0-5) /HPF Urine RBC (Auto) (0-2) /HPF U Epithel Cells (Auto) (FEW) /HPF Urine Bacteria (Auto) (NEGATIVE) /HPF Unidentified Crystals (NEGATIVE) /HPF Urine Mucus (Auto) (NEGATIVE) /HPF Urine Culture Reflexed (NO) Urine Glucose (NEGATIVE) mg/dL Influenza Type A Ag (NEGATIVE) Influenza Type B Ag (NEGATIVE) RSV (PCR) (Negative) Group A Strep Antibody (NEGATIVE) 07/20/19 Range/Units 07:18 WBC (4.0-10.5) K/mm3 RBC (4.1-5.4) M/mm3 Hgb (12.0-16.0) gm/dl Hct (35-47) % MCV (78-100) fl MCH (26-32) pg MCHC (32-36) g/dl RDW (11.5-14.0) % Plt Count (150-450) K/mm3 MPV (7.5-11.0) fl Segmented Neutrophils (36.0-66.0) % Band Neutrophils (0.0-2.0) % Lymphocytes (Manual) (24-44) % Eosinophils (Manual) (0.00-3.0) % Metamyelocytes % Platelet Estimate (NORMAL) RBC Morphology PT (9.95-12.35) SECONDS INR (0.8-3.0) APTT (25.3-37.0) SECONDS pO2/FiO2 Ratio % VBG pH (7.32-7.42) VBG pCO2 at Pat Temp (42-55) mm/Hg VBG pO2 at Pat Temp (25-40) mm/Hg VBG HCO3 (22-28) meq/L VBG O2 Sat (Walter) (95-100) VBG Base Excess (-2.0-2.0) VBG Hemoglobin VBG Carboxyhemoglobin (0.0-6.9) % T HGB POC Potassium (3.5-5.1) Sodium (137-145) mmol/L Potassium (3.5-5.1) mmol/L Chloride (98-107) mmol/L Carbon Dioxide (22-30) mmol/L Anion Gap (5-15) MEQ/L BUN (7-17) mg/dL Creatinine (0.52-1.04) mg/dL Estimated GFR ML/MIN Glucose (74-106) mg/dL Lactic Acid (0.4-2.0) Calcium (8.4-10.2) mg/dL Magnesium (1.6-2.3) mg/dL Total Bilirubin (0.2-1.3) mg/dL AST (14-36) U/L ALT (0-35) U/L Alkaline Phosphatase (38-126) U/L Troponin I 0.100 H* (0.000-0.034) ng/mL Serum Total Protein (6.3-8.2) g/dL Albumin (3.5-5.0) g/dL Amylase (30-110) U/L Lipase (23-300) U/L Urine Color (YELLOW) Urine Appearance (CLEAR) Urine pH (5-6) Ur Specific Amber (1.005-1.025) Urine Protein (Negative) Urine Ketones (NEGATIVE) Urine Blood (0-5) Danilo/ul Urine Nitrite (NEGATIVE) Urine Bilirubin (NEGATIVE) Urine Urobilinogen (0-1) mg/dL Ur Leukocyte Esterase (NEGATIVE) Urine WBC (Auto) (0-5) /HPF Urine RBC (Auto) (0-2) /HPF U Epithel Cells (Auto) (FEW) /HPF Urine Bacteria (Auto) (NEGATIVE) /HPF Unidentified Crystals (NEGATIVE) /HPF Urine Mucus (Auto) (NEGATIVE) /HPF Urine Culture Reflexed (NO) Urine Glucose (NEGATIVE) mg/dL Influenza Type A Ag (NEGATIVE) Influenza Type B Ag (NEGATIVE) RSV (PCR) (Negative) Group A Strep Antibody (NEGATIVE) - Radiology Impressions Radiology Exams & Impressions: Radiology Procedures Category Date Time Status CHEST 1 VIEW (PORTABLE) Stat Exams 07/20/19 03:39 Completed - Other Procedures and Tests Respiratory Therapy 07/20/19 04:00 BiPap/CPAP STAT Assessment/Plan (1) Pneumonia Current Visit: Yes Status: Acute Assessment & Plan: on vanc, zithromax and aztreonam, initially read by ER doctor as pneumonia, chest xray negative per radiology. due to hemoptysis and respiratory distress will pursue ct chest Code(s): J18.9 - PNEUMONIA, UNSPECIFIED ORGANISM (2) Sepsis Current Visit: Yes Status: Acute (3) UTI (urinary tract infection) Current Visit: Yes Status: Acute Assessment & Plan: on azactam and vanc, culture pending. Code(s): N39.0 - URINARY TRACT INFECTION, SITE NOT SPECIFIED (4) Hemoptysis Current Visit: Yes Status: Acute Code(s): R04.2 - HEMOPTYSIS (5) Rectal bleed Current Visit: Yes Status: Acute Code(s): K62.5 - HEMORRHAGE OF ANUS AND RECTUM (6) Elevated troponin Current Visit: Yes Status: Acute Assessment & Plan: likely secondary to sepsis/strain, no chest pain. will get echo and consult with Dr Bishop Code(s): R79.89 - OTHER SPECIFIED ABNORMAL FINDINGS OF BLOOD CHEMISTRY
[2019-07-20] MEDS ORDERED: Vancomycin 1GM/ Ns 250ML*** 1 GM/250 ML IVPB IV SCH (10:00)
--- NOTE | 2019-07-20 10:54 | XRAY ---
Indication: Tachycardia. Hemoptysis. Multiple contiguous axial images obtained through the chest using 80 cc Isovue 370 contrast and PE protocol. Comparison: None There is good opacification of the pulmonary arteries to include the lobar and segmental branches. No filling defect or pulmonary embolus. Enlarged pulmonary arteries suggestive of pulmonary hypertension. Heart is borderline enlarged with right Port-A-Cath. Aorta is normal in course and caliber without aneurysm/dissection. No pathologic mediastinal/hilar lymphadenopathy. Small hiatal hernia. Also paraesophageal varices commonly seen with portal hypertension. Lungs demonstrate bilateral dependent atelectasis, right greater than left. Minimal anterior left lung peripheral fibrosis/scarring. No suspicious pulmonary mass, infiltrate, or effusion. Bony thorax intact with osteopenia. There has been left mastectomy. No pathologic axillary lymphadenopathy. CT abdomen/pelvis reported separately. Impression: 1. Negative pulmonary embolus. No acute cardiopulmonary abnormalities. 2. Enlarged pulmonary arteries. Rule out pulmonary hypertension. 3. Distal paraesophageal varices commonly seen with portal hypertension. 4. Incidental borderline cardiomegaly, atelectasis/scarring, small hiatal hernia, osteopenia, and left mastectomy.
--- NOTE | 2019-07-20 11:14 | XRAY ---
Indication: Rectal bleeding. Multiple contiguous axial images obtained through the abdomen and pelvis without contrast as ordered. Comparison: None CT chest reported separately. Images through the pelvis are limited due to extensive beam artifact from bilateral total hip arthroplasty. Noncontrasted stomach and bowel loops appear nonobstructed. Distal descending and transverse duodenum demonstrates circumferential wall thickening with stranding presumed inflammatory. Appendix not seen. Ileocecal junction and cecum demonstrates mild circumferential wall thickening favoring Crohn's disease. No walled off fluid collection or free air. Gallbladder is moderately distended with vague intraluminal low density masses largest 2 cm near the neck of the gallbladder possible sludge versus developing cholesterol stones. Tiny perihepatic and pericholecystic free fluid. Also tiny right paracolic and pelvic free fluid. No abnormal biliary distention. Liver appears small with micronodular margins as seen with cirrhosis. Main portal vein is prominent up to 2.1 cm in diameter as seen in portal hypertension. Right kidney demonstrates tiny nonobstructing micro-calculus. Right kidney also appears mildly edematous with mild asymmetric perinephric stranding possibly underlying inflammatory/infectious process. Brown catheter empties the urinary bladder. Uterus demonstrates small fundal calcified fibroid. Remaining pancreas, spleen, adrenal glands, left kidney, and left ureter unremarkable for noncontrast exam. Mild scattered aortoiliac calcifications without AAA. Osseous structures intact with age-related osteopenia. No ventral inguinal hernias. Impression: 1. Images through the pelvis limited due to beam artifact from bilateral total hip arthroplasty. 2. Duodenal, ileal cecal junction, and cecal circumferential wall thickening favoring Crohn's disease. 3. Distended gallbladder with intraluminal hypodense masses, sludge versus cholesterol stones. Gallbladder sonogram may yield further information. 4. Cirrhotic liver with subsequent enlarged portal vein and paraesophageal varices favor portal hypertension. Tiny perihepatic, right colic gutter, and pelvic free fluid/ascites. 5. Asymmetric right edema with mild perinephric stranding. Rule out underlying inflammatory/infectious process. Also nonobstructing right renal micro-calculus. 6. Small fundal calcified fibroid and Brown catheter in situ.
[2019-07-20] MEDS: PROTONIX 40 MG IV IV SCH (11:19)
[2019-07-20] MEDS ORDERED: DUONEB 0.5-3 MG/3 ml Neb IH PRN (11:48)
[2019-07-20] MEDS ORDERED: Sodium Chloride 0.9% 500 ML 500 ML IV ONE (16:02)
[2019-07-20] MEDS: Sodium Chloride 0.9% 1000 ML 1,000 ML IV SCH (17:01)
[2019-07-20] MEDS: VANCOCIN 500 MG VIAL*** 500 MG in Sodium Chloride 100ML MINI-BAG PLUS 100 ML IV SCH (19:35)
[2019-07-20] MEDS: Senokot-S Tablet PO SCH (21:32)
[2019-07-20] MEDS: Xalatan OP SCH (21:32)
[2019-07-21] MEDS: Sodium Chloride 0.9% 1000 ML 1,000 ML IV SCH ×3 (02:51→16:36)
[2019-07-21] MEDS: Azactam 1 GM/100 ML D5W 1 GM/100 ML IVPB IV SCH ×3 (05:52→21:18)
[2019-07-21 05:57] LABS: Hematocrit 33.3 % (35-47); Hemoglobin 11.5 gm/dl (12.0-16.0); Mean Cell Volume 109.9 fl (78-100); Mean Corpuscular Hgb Concent. 34.5 g/dl (32-36); Mean Platelet Volume 9.8 fl (7.5-11.0); Platelet Count 82 K/mm3 (150-450); Red Blood Count 3.03 M/mm3 (4.1-5.4); Red Cell Distribution Width 16.3 % (11.5-14.0); White Blood Count 16.3 K/mm3 (4.0-10.5)
[2019-07-21 06:00] LABS: ALBUMIN 2.3 g/dL (3.5-5.0); ALKALINE PHOSPHATASE 159 U/L (38-126); ANION GAP 3.7 MEQ/L (5-15); BLOOD UREA NITROGEN 16 mg/dL (7-17); CHLORIDE 117 mmol/L (98-107); Carbon Dioxide 22 mmol/L (22-30); Creatinine 1 0.45 mg/dL (0.52-1.04); Glucose 87 mg/dL (74-106); Potassium 3.3 mmol/L (3.5-5.1); SGOT/AST 68 U/L (14-36); SGPT/ALT 39 U/L (0-35); SODIUM 139 mmol/L (137-145); Total Protein 5.6 g/dL (6.3-8.2)
[2019-07-21] MEDS: VANCOCIN 500 MG VIAL*** 500 MG in Sodium Chloride 100ML MINI-BAG PLUS 100 ML IV SCH ×2 (06:45→18:21)
[2019-07-21 08:53] LABS: BAND 3 % (0.0-2.0); Lymphocytes 5 % (24-44); Monocyte 5 % (0.0-12.0); Neutrophils 87 % (36.0-66.0); Platelet Estimate DECREASED (NORMAL); Total Cells Counted 100
[2019-07-21 08:54] LABS: Toxic Granulation 1+
[2019-07-21] MEDS: Zithromax 500 MG/ 250 ML NaCl Premix 500 MG/250 ML IVPB IV SCH (09:36)
[2019-07-21] MEDS: Senokot-S Tablet PO SCH ×2 (09:37→20:51)
[2019-07-21] MEDS: PROTONIX 40 MG IV IV SCH (10:46)
[2019-07-21] MEDS ORDERED: Klor Con 10 MEQ PO ONE (11:06)
--- NOTE | 2019-07-21 11:14 | PCM.NOTE ---
Date and Time: 07/21/19 1108 Subjective Assessment: Patient denies pain. She is concerned about her esophageal varices/cirrhosis which seems to be a new diagnosis for her and she would like to see a specialist about this when she is discharged. She reports some back ache but no other problem. She reports the nurses at [facility] told her that she had rectal bleeding before she came here. - Review of Systems Constitutional: No Symptoms Ears, Nose, & Throat: No Symptoms Respiratory: No Symptoms Cardiac: No Symptoms Abdominal/Gastrointestinal: No Symptoms Genitourinary Symptoms: No Symptoms, Other (asher in place, patient is not sure why) Musculoskeletal: No Symptoms Skin: No Symptoms Objective Exam General Appearance: no apparent distress, other (blind) Neurologic Exam: alert, cooperative, normal mood/affect Skin Exam: normal color, warm, dry Respiratory Exam: normal breath sounds, lungs clear, airway intact, other (on oxygen by nasal cannula), No respiratory distress, No rhonchi, No wheezing Gastrointestinal/Abdomen Exam: soft, normal bowel sounds, No tenderness, No distention, No mass OBJECTIVE DATA Vital Signs: Vital Signs - 24 hr Temp Pulse Resp BP Pulse Ox 07/21/19 07:45 78 20 91 L 07/21/19 07:29 98 F 87 20 105/64 96 07/21/19 07:28 77 07/21/19 04:00 98.2 F 77 19 107/68 92 L 07/20/19 23:52 79 07/20/19 23:46 97.9 F 77 19 114/72 92 L 07/20/19 20:00 97.2 F 79 26 H 115/89 93 L 07/20/19 19:35 78 22 93 L 07/20/19 16:00 97.2 F 73 16 95/53 93 L 07/20/19 12:00 85 17 07/20/19 11:47 98.2 F 89 16 105/66 92 L Pain Assessment - Last Documented Pain Intensity 0 Pain Scale Used 0-10 Pain Scale,FLACC Intake and Output: Intake & Output 07/19/19 07/20/19 07/21/19 07/22/19 06:59 06:59 06:59 06:59 Intake Total 5280 Output Total 3550 Balance 1730 Weight 76.204 kg 72.5 kg Lab Results: Lab Results-Last 24 Hours 07/20/19 07/20/19 07/20/19 Range/Units 04:11 07:00 11:00 WBC (4.0-10.5) K/mm3 RBC (4.1-5.4) M/mm3 Hgb (12.0-16.0) gm/dl Hct (35-47) % MCV (78-100) fl MCH (26-32) pg MCHC (32-36) g/dl RDW (11.5-14.0) % Plt Count (150-450) K/mm3 MPV (7.5-11.0) fl Segmented Neutrophils (36.0-66.0) % Band Neutrophils (0.0-2.0) % Lymphocytes (Manual) (24-44) % Monocytes (Manual) (0.0-12.0) % Toxic Granulation Platelet Estimate (NORMAL) RBC Morphology Sodium (137-145) mmol/L Potassium (3.5-5.1) mmol/L Chloride (98-107) mmol/L Carbon Dioxide (22-30) mmol/L Anion Gap (5-15) MEQ/L BUN (7-17) mg/dL Creatinine (0.52-1.04) mg/dL Estimated GFR ML/MIN Glucose (74-106) mg/dL Calcium (8.4-10.2) mg/dL Total Bilirubin (0.2-1.3) mg/dL AST (14-36) U/L ALT (0-35) U/L Alkaline Phosphatase (38-126) U/L Troponin I 0.097 H* (0.000-0.034) ng/mL C-Reactive Prot, Quant 21.93 H (0.00-10.00) mg/L NT-Pro-B Natriuret Pep (0-900) pg/mL Serum Total Protein (6.3-8.2) g/dL Albumin (3.5-5.0) g/dL Prealbumin 10.89 L (17.6-36.0) mg/dL 07/20/19 07/20/19 07/20/19 Range/Units 13:17 16:10 16:50 WBC (4.0-10.5) K/mm3 RBC (4.1-5.4) M/mm3 Hgb (12.0-16.0) gm/dl Hct (35-47) % MCV (78-100) fl MCH (26-32) pg MCHC (32-36) g/dl RDW (11.5-14.0) % Plt Count (150-450) K/mm3 MPV (7.5-11.0) fl Segmented Neutrophils (36.0-66.0) % Band Neutrophils (0.0-2.0) % Lymphocytes (Manual) (24-44) % Monocytes (Manual) (0.0-12.0) % Toxic Granulation Platelet Estimate (NORMAL) RBC Morphology Sodium (137-145) mmol/L Potassium (3.5-5.1) mmol/L Chloride (98-107) mmol/L Carbon Dioxide (22-30) mmol/L Anion Gap (5-15) MEQ/L BUN (7-17) mg/dL Creatinine (0.52-1.04) mg/dL Estimated GFR ML/MIN Glucose (74-106) mg/dL Calcium (8.4-10.2) mg/dL Total Bilirubin (0.2-1.3) mg/dL AST (14-36) U/L ALT (0-35) U/L Alkaline Phosphatase (38-126) U/L Troponin I 0.081 H* 0.061 H* (0.000-0.034) ng/mL C-Reactive Prot, Quant (0.00-10.00) mg/L NT-Pro-B Natriuret Pep 1060 H (0-900) pg/mL Serum Total Protein (6.3-8.2) g/dL Albumin (3.5-5.0) g/dL Prealbumin (17.6-36.0) mg/dL 07/21/19 07/21/19 Range/Units 05:15 05:15 WBC 16.3 H (4.0-10.5) K/mm3 RBC 3.03 L (4.1-5.4) M/mm3 Hgb 11.5 L (12.0-16.0) gm/dl Hct 33.3 L (35-47) % MCV 109.9 H (78-100) fl MCH 38.0 H (26-32) pg MCHC 34.5 (32-36) g/dl RDW 16.3 H (11.5-14.0) % Plt Count 82 L (150-450) K/mm3 MPV 9.8 (7.5-11.0) fl Segmented Neutrophils 87 H (36.0-66.0) % Band Neutrophils 3 H (0.0-2.0) % Lymphocytes (Manual) 5 L (24-44) % Monocytes (Manual) 5 (0.0-12.0) % Toxic Granulation 1+ Platelet Estimate DECREASED (NORMAL) RBC Morphology NORMAL Sodium 139 (137-145) mmol/L Potassium 3.3 L (3.5-5.1) mmol/L Chloride 117 H (98-107) mmol/L Carbon Dioxide 22 (22-30) mmol/L Anion Gap 3.7 L (5-15) MEQ/L BUN 16 (7-17) mg/dL Creatinine 0.45 L (0.52-1.04) mg/dL Estimated GFR > 60.0 ML/MIN Glucose 87 (74-106) mg/dL Calcium 8.0 L (8.4-10.2) mg/dL Total Bilirubin 2.00 H (0.2-1.3) mg/dL AST 68 H (14-36) U/L ALT 39 H (0-35) U/L Alkaline Phosphatase 159 H (38-126) U/L Troponin I (0.000-0.034) ng/mL C-Reactive Prot, Quant (0.00-10.00) mg/L NT-Pro-B Natriuret Pep (0-900) pg/mL Serum Total Protein 5.6 L (6.3-8.2) g/dL Albumin 2.3 L (3.5-5.0) g/dL Prealbumin (17.6-36.0) mg/dL Radiology Exams: Radiology Procedures Category Date Time Status ABDOMEN AND PELVIS W/0 CONTRAS [CT] Routine Exams 07/20/19 09:32 Completed CHEST 1 VIEW (PORTABLE) Stat Exams 07/20/19 03:39 Completed CHEST WITH CONTRAST [CT] Urgent Exams 07/20/19 09:31 Completed ECHO W/2D AND DOPPLER [US] Routine Exams 07/20/19 10:54 Taken Assessment/Plan (1) Sepsis Current Visit: Yes Status: Acute Qualifiers: Acute respiratory failure type: with hypoxia Severe sepsis shock status: without septic shock Assessment & Plan: Blood cultures are growing a gram negative organism. Continue vancomycin, aztreonam and azithromycin until final ID is available. Her heart rate and blood pressure are stable today. Will recheck CBC in AM. Continue to monitor ins and outs. (2) UTI (urinary tract infection) Current Visit: Yes Status: Acute Assessment & Plan: Urine culture in lab; blood cultures growing a gram neg organism. Code(s): N39.0 - URINARY TRACT INFECTION, SITE NOT SPECIFIED (3) Cirrhosis Current Visit: Yes Status: Acute Assessment & Plan: Patient would like to see a specialist as an outpatient. Etiology is unclear. (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 Current Visit: Yes Status: Acute Assessment & Plan: Continue PPI; Monitor Hgb; Would benefit from scope with possible banding as outpatient; will start mechanical soft diet. Code(s): K74.60 - UNSPECIFIED CIRRHOSIS OF LIVER; I85.10 - SECONDARY ESOPHAGEAL VARICES WITHOUT BLEEDING (5) Elevated troponin Current Visit: Yes Status: Acute Assessment & Plan: troponin trending down. Dr. Bishop saw her. I am unable to read the handwritten note. Code(s): R79.89 - OTHER SPECIFIED ABNORMAL FINDINGS OF BLOOD CHEMISTRY
[2019-07-21] MEDS: Xalatan OP SCH (21:18)
[2019-07-22] MEDS: Sodium Chloride 0.9% 1000 ML 1,000 ML IV SCH ×2 (03:42→16:34)
[2019-07-22] MEDS: Azactam 1 GM/100 ML D5W 1 GM/100 ML IVPB IV SCH ×3 (05:19→21:24)
[2019-07-22] MEDS: TYLENOL 325 MG PO PRN ×2 (05:21→12:23)
[2019-07-22] MEDS: VANCOCIN 500 MG VIAL*** 500 MG in Sodium Chloride 100ML MINI-BAG PLUS 100 ML IV SCH (06:02)
[2019-07-22 06:13] LABS: Hematocrit 36.7 % (35-47); Hemoglobin 12.1 gm/dl (12.0-16.0); Mean Cell Volume 112.6 fl (78-100); Mean Corpuscular Hemoglobin 37.1 pg (26-32); Mean Platelet Volume 9.8 fl (7.5-11.0); Platelet Count 84 K/mm3 (150-450); Red Blood Count 3.26 M/mm3 (4.1-5.4); Red Cell Distribution Width 16.5 % (11.5-14.0); White Blood Count 10.1 K/mm3 (4.0-10.5)
[2019-07-22 06:17] LABS: ANION GAP 4.3 MEQ/L (5-15); BLOOD UREA NITROGEN 11 mg/dL (7-17); CHLORIDE 115 mmol/L (98-107); Calcium 7.9 mg/dL (8.4-10.2); Carbon Dioxide 23 mmol/L (22-30); Creatinine 1 0.44 mg/dL (0.52-1.04); Glucose 78 mg/dL (74-106); Potassium 3.2 mmol/L (3.5-5.1); SODIUM 139 mmol/L (137-145)
[2019-07-22 08:41] LABS: BAND 5 % (0.0-2.0); Lymphocytes 4 % (24-44); Monocyte 1 % (0.0-12.0); Neutrophils 90 % (36.0-66.0); Platelet Estimate NORMAL (NORMAL); Total Cells Counted 100; Toxic Granulation 1+
[2019-07-22] MEDS ORDERED: Klor Con 10 MEQ PO ONE (08:55)
[2019-07-22] MEDS: Senokot-S Tablet PO SCH (09:04)
[2019-07-22] MEDS: Zithromax 500 MG/ 250 ML NaCl Premix 500 MG/250 ML IVPB IV SCH (09:43)
--- NOTE | 2019-07-22 09:59 | PCM.NOTE ---
Date and Time: 07/22/19955 Subjective Assessment: Patient reports incontinence at baseline and is wondering if UTI caused this. She reports temp up to 100. No other concerns. - Review of Systems Constitutional: Fever Respiratory: No Symptoms Cardiac: No Symptoms Abdominal/Gastrointestinal: No Symptoms Genitourinary Symptoms: Incontinence Musculoskeletal: No Symptoms Skin: No Symptoms Objective Exam General Appearance: no apparent distress, other (Patient unable to sit up on her own in bed. On oxygen by Nasal cannula.) Neurologic Exam: alert, cooperative, normal mood/affect Skin Exam: normal color, warm, dry, No rash Respiratory Exam: normal breath sounds, lungs clear, No crackles/rales, No rhonchi, No wheezing Cardiovascular Exam: regular rate/rhythm, No murmur, No friction rub, No gallop Gastrointestinal/Abdomen Exam: soft, normal bowel sounds, No tenderness, No distention, No mass Extremity Exam: normal inspection, other (no c/c/e) OBJECTIVE DATA Vital Signs: Vital Signs - 24 hr Temp Pulse Resp BP Pulse Ox 07/22/19 08:00 98.9 F 88 22 137/74 91 L 07/22/19 06:41 81 20 92 L 07/22/19 04:00 99.1 F 85 22 155/84 92 L 07/22/19 00:00 99.3 F 88 22 120/72 91 L 07/21/19 20:00 97.9 F 95 H 28 H 123/77 95 07/21/19 19:43 87 19 90 L 07/21/19 15:34 97.8 F 79 20 135/75 92 L 07/21/19 12:15 97.9 F 91 H 20 115/76 96 Pain Assessment - Last Documented Pain Intensity 0 Pain Scale Used 0-10 Pain Scale Intake and Output: Intake & Output 07/20/19 07/21/19 07/22/19 07/23/19 06:59 06:59 06:59 06:59 Intake Total 5280 3384 360 Output Total 3550 2650 1400 Balance 1730 734 -1040 Weight 76.204 kg 72.5 kg Lab Results: Lab Results-Last 24 Hours 07/22/19 07/22/19 07/22/19 Range/Units 05:25 05:25 05:30 WBC 10.1 (4.0-10.5) K/mm3 RBC 3.26 L (4.1-5.4) M/mm3 Hgb 12.1 (12.0-16.0) gm/dl Hct 36.7 (35-47) % MCV 112.6 H (78-100) fl MCH 37.1 H (26-32) pg MCHC 33.0 (32-36) g/dl RDW 16.5 H (11.5-14.0) % Plt Count 84 L (150-450) K/mm3 MPV 9.8 (7.5-11.0) fl Segmented Neutrophils 90 H (36.0-66.0) % Band Neutrophils 5 H (0.0-2.0) % Lymphocytes (Manual) 4 L (24-44) % Monocytes (Manual) 1 (0.0-12.0) % Toxic Granulation 1+ Platelet Estimate NORMAL (NORMAL) RBC Morphology NORMAL Sodium 139 (137-145) mmol/L Potassium 3.2 L (3.5-5.1) mmol/L Chloride 115 H (98-107) mmol/L Carbon Dioxide 23 (22-30) mmol/L Anion Gap 4.3 L (5-15) MEQ/L BUN 11 (7-17) mg/dL Creatinine 0.44 L (0.52-1.04) mg/dL Estimated GFR > 60.0 ML/MIN Glucose 78 (74-106) mg/dL Calcium 7.9 L (8.4-10.2) mg/dL Vancomycin Trough 6.26 L (10-20) ug/mL Radiology Exams: Radiology Procedures Category Date Time Status ABDOMEN AND PELVIS W/0 CONTRAS [CT] Routine Exams 07/20/19 09:32 Completed CHEST WITH CONTRAST [CT] Urgent Exams 07/20/19 09:31 Completed ECHO W/2D AND DOPPLER [US] Routine Exams 07/20/19 10:54 Taken Assessment/Plan (1) Sepsis Current Visit: Yes Status: Acute Qualifiers: Acute respiratory failure type: with hypoxia Severe sepsis shock status: without septic shock Assessment & Plan: Stopped vancomycin. Continue Aztreoname as urine and blood culture sensitive to this. PCP to decide about azithromycin tomorrow. (2) UTI (urinary tract infection) Current Visit: Yes Status: Acute Assessment & Plan: Continue antibiotic. Code(s): N39.0 - URINARY TRACT INFECTION, SITE NOT SPECIFIED (3) Cirrhosis Current Visit: Yes Status: Acute Qualifiers: Ascites presence: without ascites Assessment & Plan: Will need to see specialist as outpatient as he desires treatment for varices. (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 Current Visit: Yes Status: Acute Assessment & Plan: see above. Code(s): K74.60 - UNSPECIFIED CIRRHOSIS OF LIVER; I85.10 - SECONDARY ESOPHAGEAL VARICES WITHOUT BLEEDING (5) Elevated troponin Current Visit: Yes Status: Acute Code(s): R79.89 - OTHER SPECIFIED ABNORMAL FINDINGS OF BLOOD CHEMISTRY
[2019-07-22] MEDS: PROTONIX 40 MG IV IV SCH (11:08)
[2019-07-22] MEDS: Xalatan OP SCH (21:24)
[2019-07-23 00:11] LABS: HEPATITIS A IGM Non Reactive (Non Reactive); HEPATITIS B VIRUS CORE TOT AB Non Reactive (Non Reactive); HEPATITIS C VIRUS ANTIBODY Non Reactive (Non Reactive); Hepatitis B Surface Ab.Quant. <3.50 mIU/mL (0.00-8.49); Hepatitis B Surface Antigen Non Reactive (Non Reactive)
[2019-07-23] MEDS: TYLENOL 325 MG PO PRN ×2 (02:13→10:13)
[2019-07-23] MEDS: Sodium Chloride 0.9% 1000 ML 1,000 ML IV SCH (02:25)
[2019-07-23 04:30] LABS: Hemoglobin 12.4 gm/dl (12.0-16.0); Mean Cell Volume 109.8 fl (78-100); Mean Corpuscular Hemoglobin 36.8 pg (26-32); Mean Corpuscular Hgb Concent. 33.5 g/dl (32-36); Mean Platelet Volume 9.9 fl (7.5-11.0); Platelet Count 90 K/mm3 (150-450); Red Blood Count 3.37 M/mm3 (4.1-5.4); Red Cell Distribution Width 15.9 % (11.5-14.0); White Blood Count 7.4 K/mm3 (4.0-10.5)
[2019-07-23 04:49] LABS: ANION GAP 6.1 MEQ/L (5-15); BLOOD UREA NITROGEN 8 mg/dL (7-17); CHLORIDE 111 mmol/L (98-107); Calcium 7.9 mg/dL (8.4-10.2); Carbon Dioxide 23 mmol/L (22-30); Creatinine 1 0.36 mg/dL (0.52-1.04); Glucose 83 mg/dL (74-106); Potassium 3.2 mmol/L (3.5-5.1); SODIUM 137 mmol/L (137-145)
[2019-07-23] MEDS: Azactam 1 GM/100 ML D5W 1 GM/100 ML IVPB IV SCH ×3 (05:33→21:21)
[2019-07-23 07:53] LABS: BAND 4 % (0.0-2.0); Eosinophil 3 % (0.00-3.0); Lymphocytes 6 % (24-44); Monocyte 3 % (0.0-12.0); Neutrophils 84 % (36.0-66.0); Platelet Estimate DECREASED (NORMAL); Total Cells Counted 100
--- NOTE | 2019-07-23 08:53 | PCM.NOTE ---
Date and Time: 07/23/19 0850 Subjective Assessment: patient reports she is coughing quite a bit with some sputum production, otherwise has no pain. she is tolerating po intake, had fever yesterday Objective Exam General Appearance: no apparent distress, alert Respiratory Exam: rhonchi Cardiovascular Exam: regular rate/rhythm, normal heart sounds Gastrointestinal/Abdomen Exam: soft, No tenderness, No mass Extremity Exam: normal inspection, normal range of motion OBJECTIVE DATA Vital Signs: Vital Signs - 24 hr Temp Pulse Resp BP BP Pulse Ox 07/23/19 08:00 99.3 F 84 18 141/68 92 L 07/23/19 07:02 81 20 93 L 07/23/19 04:00 100.0 F 85 22 127/73 92 L 07/23/19 00:00 99.1 F 80 24 145/86 92 L 07/22/19 20:00 98.4 F 79 24 135/76 91 L 07/22/19 18:25 86 22 92 L 07/22/19 16:00 100.0 F 93 H 25 H 127/71 92 L 07/22/19 12:00 99.9 F 87 26 H 136/86 95 Oxygen-Last 24 hours Oxygen Flowrate (L/min)-RT 144 Oxygen Flowrate (L/min)-RT 5 Oxygen Flowrate (L/min)-RT 4 Pain Assessment - Last Documented Pain Intensity 0 Pain Scale Used FLACC Intake and Output: Intake & Output 07/20/19 07/21/19 07/22/19 07/23/19 11:59 11:59 11:59 11:59 Intake Total 5296 3744 3585 Output Total 3557 4050 4450 Balance 1730 -306 -865 Weight 72.5 kg 72.5 kg 75.7 kg Lab Results: Lab Results-Last 24 Hours 07/21/19 07/23/19 07/23/19 Range/Units 05:30 04:10 04:10 WBC 7.4 (4.0-10.5) K/mm3 RBC 3.37 L (4.1-5.4) M/mm3 Hgb 12.4 (12.0-16.0) gm/dl Hct 37.0 (35-47) % MCV 109.8 H (78-100) fl MCH 36.8 H (26-32) pg MCHC 33.5 (32-36) g/dl RDW 15.9 H (11.5-14.0) % Plt Count 90 L (150-450) K/mm3 MPV 9.9 (7.5-11.0) fl Segmented Neutrophils 84 H (36.0-66.0) % Band Neutrophils 4 H (0.0-2.0) % Lymphocytes (Manual) 6 L (24-44) % Monocytes (Manual) 3 (0.0-12.0) % Eosinophils (Manual) 3 (0.00-3.0) % Platelet Estimate DECREASED (NORMAL) RBC Morphology NORMAL Sodium 137 (137-145) mmol/L Potassium 3.2 L (3.5-5.1) mmol/L Chloride 111 H (98-107) mmol/L Carbon Dioxide 23 (22-30) mmol/L Anion Gap 6.1 (5-15) MEQ/L BUN 8 (7-17) mg/dL Creatinine 0.36 L (0.52-1.04) mg/dL Estimated GFR > 60.0 ML/MIN Glucose 83 (74-106) mg/dL Calcium 7.9 L (8.4-10.2) mg/dL Hepatitis A IgM Ab Non Reactive (Non Reactive) Hep Bs Antigen Non Reactive (Non Reactive) Hep Bs Antibody, Quant <3.50 (0.00-8.49) mIU/mL Hep B Core Total Ab Non Reactive (Non Reactive) Hepatitis C Antibody Non Reactive (Non Reactive) Radiology Exams: Radiology Procedures Category Date Time Status CHEST 2 VIEWS (PA AND LAT) Routine Exams 07/23/19 Ordered Assessment/Plan (1) Sepsis Current Visit: Yes Status: Acute Qualifiers: Acute respiratory failure type: with hypoxia Severe sepsis shock status: without septic shock Assessment & Plan: continue fluids, azactam and zithromax, e coli and proteus sens to aztreonam (2) UTI (urinary tract infection) Current Visit: Yes Status: Acute Assessment & Plan: see above Code(s): N39.0 - URINARY TRACT INFECTION, SITE NOT SPECIFIED (3) Hemoptysis Current Visit: Yes Status: Acute Assessment & Plan: varices present h/h stable, no further bleeding. will need gi consult after d/c Code(s): R04.2 - HEMOPTYSIS (4) Rectal bleed Current Visit: Yes Status: Acute Code(s): K62.5 - HEMORRHAGE OF ANUS AND RECTUM (5) Elevated troponin Current Visit: Yes Status: Acute Code(s): R79.89 - OTHER SPECIFIED ABNORMAL FINDINGS OF BLOOD CHEMISTRY (6) Pneumonia Current Visit: Yes Status: Acute Assessment & Plan: chest xray initially read as negative by radiology, will repeat PA/Lat xray today Code(s): J18.9 - PNEUMONIA, UNSPECIFIED ORGANISM
[2019-07-23] MEDS: Sodium Chloride 0.9% W/ 20 mEq KCl/LITER 1,000 ML IV SCH ×2 (09:58→21:21)
--- NOTE | 2019-07-23 10:10 | XRAY ---
Indication: Cough. Comparison: July 20, 2019. PA/lateral chest unchanged again slightly rotated with chronic lung markings and right Port-A-Cath. Heart is not enlarged. No new/acute cardiopulmonary abnormalities.
[2019-07-23] MEDS: PROTONIX 40 MG IV IV SCH (10:44)
[2019-07-23] MEDS: Zithromax 500 MG/ 250 ML NaCl Premix 500 MG/250 ML IVPB IV SCH (10:44)
--- NOTE | 2019-07-23 12:59 | CONS ---
CONSULT DATE: 07/20/2019 BRIEF HISTORY: This is a 68 year-old female who was seen because of a mildly elevated troponin I. The patient was primarily admitted with shortness of breath, fever and suspected to have some respiratory tract infection. Subsequent study did not show any evidence of pneumonia but she was febrile on admission. She was placed on IV antibiotics. She seems to be doing well. Her troponin I was obtained which was mildly elevated but is trending down. Historically, the patient denies any chest pains. She has never had myocardial infarction or heart failure. 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 CARDIAC RISK FACTORS: No diabetes. Positive for hypertension. No known hyperlipidemia. She does not smoke. HOME MEDICATIONS: Xalatan, Senna, prednisone, ferrous sulfate, vitamin B12, calcium carbonate, Ditropan, Furosemide. PHYSICAL EXAMINATION: WEIGHTER: No prior history of stroke. She has been blind since . She has constant nystagmus. NECK: No significant JVD. No carotid bruit. CHEST: The breath sounds are harsh with no rhonchi or wheezing. CVS: Heart tones are somewhat distant. The rhythm is regular. There is no audible gallop. ABDOMEN: Soft with normal bowel sounds. EXTREMITIES: Trace edema with decreased distal pulses. LAB DATA AND TESTS: The EKG showed sinus rhythm with left ventricular ebony-block. Hemoglobin 13.3 with white blood cell 3.8, PLT 90,000. Troponin is down to 0.061. IMPRESSION: In essence I suspect: 1) The elevated troponin I is related to some form of demand ischemia. There is no evidence of acute coronary syndrome at this time. I will review her echocardiogram to see whether there is any wall motion abnormality. 2) Possible sepsis syndrome from urinary tract infection and/or ongoing cholecystitis. I will follow up with you.
--- NOTE | 2019-07-23 13:10 | ECHO ---
Transthoracic echocardiographic examination and color Doppler was done on 07/20/2019. INDICATION: Elevated troponin I. IMPRESSION: 1) NO DEFINITE REGIONAL WALL MOTION ABNORMALITY. ESTIMATED GLOBAL LEFT VENTRICULAR EJECTION FRACTION BETWEEN 50 AND 60%. 2) LEFT VENTRICULAR HYPERTROPHY. 3) TRACE TRICUSPID REGURGITATION. RIGHT VENTRICULAR SYSTOLIC PRESSURE OF 14 MM OF MERCURY. The left ventricle is visualized and demonstrated adequate motion of all the segments. Estimated global left ventricular ejection fraction between 50 and 60%. There is mild left ventricular hypertrophy. The mitral valve is seen and this opens adequately. No significant mitral regurgitation is seen. Left atrium is normal. The aortic valve is sclerotic but opens adequately. There is no significant gradient across the left ventricular outflow tract. The right side chambers are normal. There is trace tricuspid regurgitation. The right ventricular systolic pressure of 14 mm of Mercury.
[2019-07-23] MEDS: Tussionex Pennkinetic Susp PO PRN (13:57)
[2019-07-23] MEDS: Xalatan OP SCH (21:22)
[2019-07-24] MEDS: TYLENOL 325 MG PO PRN (04:26)
[2019-07-24 04:53] LABS: Hematocrit 37.4 % (35-47); Hemoglobin 13.1 gm/dl (12.0-16.0); Mean Cell Volume 108.7 fl (78-100); Mean Corpuscular Hemoglobin 38.1 pg (26-32); Mean Platelet Volume 10.2 fl (7.5-11.0); Platelet Count 93 K/mm3 (150-450); Red Blood Count 3.44 M/mm3 (4.1-5.4); Red Cell Distribution Width 15.9 % (11.5-14.0); White Blood Count 7.2 K/mm3 (4.0-10.5)
[2019-07-24] MEDS: Azactam 1 GM/100 ML D5W 1 GM/100 ML IVPB IV SCH ×3 (05:13→21:18)
[2019-07-24 06:22] LABS: BAND 6 % (0.0-2.0); Eosinophil 1 % (0.00-3.0); Lymphocytes 7 % (24-44); Monocyte 8 % (0.0-12.0); Neutrophils 78 % (36.0-66.0); Platelet Estimate DECREASED (NORMAL); Total Cells Counted 100
[2019-07-24 06:39] LABS: ANION GAP 6.3 MEQ/L (5-15); BLOOD UREA NITROGEN 9 mg/dL (7-17); CHLORIDE 112 mmol/L (98-107); Calcium 8.1 mg/dL (8.4-10.2); Carbon Dioxide 23 mmol/L (22-30); Creatinine 1 0.42 mg/dL (0.52-1.04); Glucose 85 mg/dL (74-106); Potassium 3.4 mmol/L (3.5-5.1); SODIUM 139 mmol/L (137-145)
[2019-07-24] MEDS: Sodium Chloride 0.9% W/ 20 mEq KCl/LITER 1,000 ML IV SCH ×2 (09:27→20:07)
--- NOTE | 2019-07-24 09:57 | PCM.NOTE ---
Date and Time: 07/24/19930 Subjective Assessment: Pt has had a MATT, indicates frontal, for the past 10 min or so. Moses po very well. Otherwise no complaints. - Review of Systems Constitutional: Fever (to 100.8 at 1149 yesterday) Eyes: Other (pt is blind) Objective Exam General Appearance: no apparent distress, alert Neurologic Exam: oriented x 3, cooperative Skin Exam: normal color, warm, dry, No rash Eye Exam: other (eyes closed) Ears, Nose, Throat Exam: moist mucous membranes Neck Exam: normal inspection Respiratory Exam: normal breath sounds, wheezing (slight scattered expiratory), No diminished breath sounds, No crackles/rales, No rhonchi Cardiovascular Exam: regular rate/rhythm, normal heart sounds, No murmur Gastrointestinal/Abdomen Exam: soft, normal bowel sounds, No tenderness, No distention, No mass, No guarding, No rebound Extremity Exam: swelling (trace pretibial edema bilat) Back Exam: normal inspection, No rash OBJECTIVE DATA Vital Signs: Vital Signs - 24 hr Temp Pulse Resp BP Pulse Ox 07/24/19 07:10 99.7 F 87 20 149/81 94 L 07/24/19 04:00 99.7 F 87 28 H 149/81 90 L 07/24/19 00:00 99.1 F 87 22 143/82 94 L 07/23/19 20:00 98.8 F 83 17 115/71 92 L 07/23/19 19:50 79 24 92 L 07/23/19 16:00 97.4 F 81 22 133/82 92 L 07/23/19 11:29 100.8 F 93 H 24 130/77 94 L Oxygen-Last 24 hours Oxygen Flowrate (L/min)-RT 5 Pain Assessment - Last Documented Pain Intensity 0 Pain Scale Used 0-10 Pain Scale Intake and Output: Intake & Output 07/21/19 07/22/19 07/23/19 07/24/19 11:59 11:59 11:59 11:59 Intake Total 5280 3744 3585 3143 Output Total 3550 4050 9620 1750 Balance 2250 306 -2469 1393 Weight 72.5 kg 75.7 kg Lab Results: Lab Results-Last 24 Hours 07/24/19 07/24/19 Range/Units 04:20 04:20 WBC 7.2 (4.0-10.5) K/mm3 RBC 3.44 L (4.1-5.4) M/mm3 Hgb 13.1 (12.0-16.0) gm/dl Hct 37.4 (35-47) % MCV 108.7 H (78-100) fl MCH 38.1 H (26-32) pg MCHC 35.0 (32-36) g/dl RDW 15.9 H (11.5-14.0) % Plt Count 93 L (150-450) K/mm3 MPV 10.2 (7.5-11.0) fl Segmented Neutrophils 78 H (36.0-66.0) % Band Neutrophils 6 H (0.0-2.0) % Lymphocytes (Manual) 7 L (24-44) % Monocytes (Manual) 8 (0.0-12.0) % Eosinophils (Manual) 1 (0.00-3.0) % Platelet Estimate DECREASED (NORMAL) RBC Morphology NORMAL Sodium 139 (137-145) mmol/L Potassium 3.4 L (3.5-5.1) mmol/L Chloride 112 H (98-107) mmol/L Carbon Dioxide 23 (22-30) mmol/L Anion Gap 6.3 (5-15) MEQ/L BUN 9 (7-17) mg/dL Creatinine 0.42 L (0.52-1.04) mg/dL Estimated GFR > 60.0 ML/MIN Glucose 85 (74-106) mg/dL Calcium 8.1 L (8.4-10.2) mg/dL Radiology Exams: Radiology Procedures Category Date Time Status CHEST 2 VIEWS (PA AND LAT) Routine Exams 07/23/19 10:00 Completed Multi-Disciplinary Progress Notes: Multi-Disciplinary Progress Notes 07/23/19 15:11 Nutrition Note by Madonna Lala F/u note: Soft diet with 50-100% po intake. admission weight 72.5 kg; current weight 75.7 kg. Labs 07/23= K+ 3.2, Cr 0.36. Goals not met and ongoing. Con't to recommend STEPHY diet. Will con't to monitor and f/u prn. T.JASON Lala Initialized on 07/23/19 15:11 - END OF NOTE 07/23/19 09:37 Case Management Note by Jeaneth Kulkarni NO CHANGE IN DC PLANS AT THIS TIME Initialized on 07/23/19 09:37 - END OF NOTE Assessment/Plan (1) Sepsis Current Visit: Yes Status: Acute Qualifiers: Acute respiratory failure type: with hypoxia Severe sepsis shock status: without septic shock Assessment & Plan: On zithromax and aztreonam. (2) Cirrhosis Current Visit: Yes Status: Chronic Qualifiers: Ascites presence: without ascites Assessment & Plan: with esophageal varices - is to f/u with GI outpatient. (3) Elevated troponin Current Visit: Yes Status: Resolved Assessment & Plan: Was seen by Dr. Bishop. Code(s): R79.89 - OTHER SPECIFIED ABNORMAL FINDINGS OF BLOOD CHEMISTRY (4) UTI (urinary tract infection) Current Visit: Yes Status: Acute Qualifiers: Urinary tract infection type: acute cystitis Hematuria presence: without hematuria Qualified Code(s): N30.00 - Acute cystitis without hematuria Code(s): N39.0 - URINARY TRACT INFECTION, SITE NOT SPECIFIED (5) Cough Current Visit: Yes Status: Acute Assessment & Plan: Initially thought pt had pneumonia, but over read was non acute. CXR yesterday nonacute. On zithromax. Code(s): R05 - COUGH (6) Thrombocytopenia Current Visit: Yes Status: Acute Assessment & Plan: ?related to the cirrhosis. Has been stable here in the 90s.
[2019-07-24] MEDS: Zithromax 500 MG/ 250 ML NaCl Premix 500 MG/250 ML IVPB IV SCH (10:02)
[2019-07-24] MEDS: PROTONIX 40 MG IV IV SCH (12:34)
[2019-07-24] MEDS: Senokot-S Tablet PO PRN (21:18)
[2019-07-24] MEDS: Xalatan OP SCH (21:18)
[2019-07-25] MEDS: Azactam 1 GM/100 ML D5W 1 GM/100 ML IVPB IV SCH ×3 (05:20→21:40)
[2019-07-25] MEDS: Sodium Chloride 0.9% W/ 20 mEq KCl/LITER 1,000 ML IV SCH (06:45)
[2019-07-25] MEDS: Zithromax 500 MG/ 250 ML NaCl Premix 500 MG/250 ML IVPB IV SCH (09:15)
[2019-07-25] MEDS: Tussionex Pennkinetic Susp PO PRN (09:25)
--- NOTE | 2019-07-25 09:58 | PCM.NOTE ---
Date and Time: 07/25/19956 Subjective Assessment: patient c/o cough, nonproductive. otherwise doing well. Objective Exam General Appearance: no apparent distress, alert Neurologic Exam: alert, cooperative Respiratory Exam: normal breath sounds, lungs clear, No respiratory distress Cardiovascular Exam: regular rate/rhythm, normal heart sounds Gastrointestinal/Abdomen Exam: soft, No tenderness, No mass Extremity Exam: normal inspection, normal range of motion OBJECTIVE DATA Vital Signs: Vital Signs - 24 hr Temp Pulse Resp BP Pulse Ox 07/25/19 08:29 89 18 93 L 07/25/19 07:30 99.7 F 86 20 126/73 93 L 07/25/19 04:00 99.3 F 77 20 129/79 92 L 07/25/19 00:00 99.1 F 91 H 28 H 145/80 94 L 07/24/19 20:05 78 21 94 L 07/24/19 20:00 99.5 F 83 22 126/58 94 L 07/24/19 16:27 99.3 F 84 20 94 L 07/24/19 12:38 99 F 87 20 140/88 93 L Oxygen-Last 24 hours Oxygen Flowrate (L/min)-RT 5 Oxygen Flowrate (L/min)-RT 5 Pain Assessment - Last Documented Pain Intensity 0 Pain Scale Used 0-10 Pain Scale Intake and Output: Intake & Output 07/22/19 07/23/19 07/24/19 07/25/19 11:59 11:59 11:59 11:59 Intake Total 3744 3585 3243 3535 Output Total 4050 5950 2900 3300 Balance -306 -2365 343 235 Weight 75.7 kg Radiology Exams: Radiology Procedures Category Date Time Status CHEST 2 VIEWS (PA AND LAT) Routine Exams 07/23/19 10:00 Completed Multi-Disciplinary Progress Notes: Multi-Disciplinary Progress Notes 07/24/19 15:04 Pharmacy Note by Lion Briscoe Today is day 5 of IV Zithromax. Recommend changing to oral or d/c when able. Initialized on 07/24/19 15:04 - END OF NOTE 07/24/19 11:31 Case Management Note by Jeaneth Kulkarni PATIENT CONTINUES TO PLAN TO RETURN TO [place] AT TIME OF DC Initialized on 07/24/19 11:31 - END OF NOTE Assessment/Plan (1) Sepsis Current Visit: Yes Status: Acute Qualifiers: Acute respiratory failure type: with hypoxia Severe sepsis shock status: without septic shock (2) UTI (urinary tract infection) Current Visit: Yes Status: Acute Qualifiers: Urinary tract infection type: acute cystitis Hematuria presence: without hematuria Qualified Code(s): N30.00 - Acute cystitis without hematuria Assessment & Plan: continue aztreonam for UTI/bacteremia. still with temp in 99 range Code(s): N39.0 - URINARY TRACT INFECTION, SITE NOT SPECIFIED (3) Hemoptysis Current Visit: Yes Status: Acute Code(s): R04.2 - HEMOPTYSIS (4) Rectal bleed Current Visit: Yes Status: Acute Code(s): K62.5 - HEMORRHAGE OF ANUS AND RECTUM (5) Elevated troponin Current Visit: Yes Status: Resolved Code(s): R79.89 - OTHER SPECIFIED ABNORMAL FINDINGS OF BLOOD CHEMISTRY
[2019-07-25] MEDS: PROTONIX 40 MG IV IV SCH (11:19)
[2019-07-25] MEDS: Xalatan OP SCH (21:39)
[2019-07-25] MEDS: Senokot-S Tablet PO PRN (21:40)
[2019-07-26 05:15] LABS: Hematocrit 36.1 % (35-47); Hemoglobin 12.3 gm/dl (12.0-16.0); Mean Cell Volume 110.1 fl (78-100); Mean Corpuscular Hemoglobin 37.5 pg (26-32); Mean Corpuscular Hgb Concent. 34.1 g/dl (32-36); Mean Platelet Volume 9.9 fl (7.5-11.0); Platelet Count 107 K/mm3 (150-450); Red Blood Count 3.28 M/mm3 (4.1-5.4); Red Cell Distribution Width 16.1 % (11.5-14.0); White Blood Count 6.6 K/mm3 (4.0-10.5)
[2019-07-26 05:45] LABS: ANION GAP 3.6 MEQ/L (5-15); BLOOD UREA NITROGEN 11 mg/dL (7-17); CHLORIDE 113 mmol/L (98-107); Calcium 8.1 mg/dL (8.4-10.2); Carbon Dioxide 25 mmol/L (22-30); Creatinine 1 0.37 mg/dL (0.52-1.04); Glucose 83 mg/dL (74-106); MAGNESIUM 1.7 mg/dL (1.6-2.3); Potassium 3.5 mmol/L (3.5-5.1); SODIUM 138 mmol/L (137-145)
[2019-07-26] MEDS: Azactam 1 GM/100 ML D5W 1 GM/100 ML IVPB IV SCH (06:08)
[2019-07-26] MEDS ORDERED: D5w 100ML Mini Bag 100 ML 100 ML IV ONE (06:21)
[2019-07-26] MEDS ORDERED: AZACTAM 1 GM ONE (06:22)
[2019-07-26 07:26] LABS: BAND 8 % (0.0-2.0); Basophil 1 % (0.0-1.0); Eosinophil 2 % (0.00-3.0); Lymphocytes 10 % (24-44); Monocyte 3 % (0.0-12.0); Neutrophils 76 % (36.0-66.0); Platelet Estimate DECREASED (NORMAL); Total Cells Counted 100; Toxic Granulation 2+
[2019-07-26 07:34] VITALS: BP 138/61
[2019-07-26 07:53] VITALS: PULSE 91; O2SAT 92
--- NOTE | 2019-07-26 08:30 | PCM.DS ---
Discharge Summary Date of Admission: 07/20/19 07:54 Admitting Physician: XAVI KENNEY Consults: Consults on Case 07/20/19 09:30 Consult Cardiology ROUTINE Primary Care Provider: BILL Allergies Allergies amoxicillin [Amoxicillin] Allergy (Mild, Verified 07/20/19 05:39) Hospital Summary - Hospital Course Hospital Course: patient was admitted with fever and sepsis, urine culture with proteus and e coli, both sens to azactam. blood culture +proteus, she has a normal white count , has been hemodynamically stable and fever free. she has cough, chest xray x 2 have been negative. will return to [place] with po abx and tessalon for cough - Vitals & Intake/Output Vital Signs: Vital Signs Temperature 98.0 F 07/26/19 07:32 Pulse Rate 91 H 07/26/19 07:51 Respiratory Rate 16 07/26/19 07:51 Blood Pressure 138/61 07/26/19 07:32 O2 Sat by Pulse Oximetry 92 L 07/26/19 07:51 Intake & Output: Intake & Output 07/23/19 07/24/19 07/25/19 07/26/19 11:59 11:59 11:59 11:59 Intake Total 3585 3243 3655 580 Output Total 5950 2900 4700 1850 Balance -2365 343 -4895 1270 Weight 75.7 kg - Lab Result Diagrams: 07/26/19 04:33 07/26/19 04:33 Lab Results-Last 24 Hrs: Lab Results-Last 24 Hours 07/26/19 07/26/19 Range/Units 04:33 04:33 WBC 6.6 (4.0-10.5) K/mm3 RBC 3.28 L (4.1-5.4) M/mm3 Hgb 12.3 (12.0-16.0) gm/dl Hct 36.1 (35-47) % MCV 110.1 H (78-100) fl MCH 37.5 H (26-32) pg MCHC 34.1 (32-36) g/dl RDW 16.1 H (11.5-14.0) % Plt Count 107 L (150-450) K/mm3 MPV 9.9 (7.5-11.0) fl Segmented Neutrophils 76 H (36.0-66.0) % Band Neutrophils 8 H (0.0-2.0) % Lymphocytes (Manual) 10 L (24-44) % Monocytes (Manual) 3 (0.0-12.0) % Eosinophils (Manual) 2 (0.00-3.0) % Basophils (Manual) 1 (0.0-1.0) % Toxic Granulation 2+ Platelet Estimate DECREASED (NORMAL) RBC Morphology NORMAL Sodium 138 (137-145) mmol/L Potassium 3.5 (3.5-5.1) mmol/L Chloride 113 H (98-107) mmol/L Carbon Dioxide 25 (22-30) mmol/L Anion Gap 3.6 L (5-15) MEQ/L BUN 11 (7-17) mg/dL Creatinine 0.37 L (0.52-1.04) mg/dL Estimated GFR > 60.0 ML/MIN Glucose 83 (74-106) mg/dL Calcium 8.1 L (8.4-10.2) mg/dL Magnesium 1.7 (1.6-2.3) mg/dL Micro Results-Entire Visit: Microbiology 07/20/19 04:00 Blood Culture Gram Stain - Final Blood Blood Culture - Final Proteus Mirabilis 07/20/19 03:36 Blood Culture Gram Stain - Final Blood Blood Culture - Final Proteus Mirabilis 07/20/19 04:00 Urine Culture - Final Catherized Proteus Mirabilis Escherichia Coli - Procedures and Test Procedures and Tests throughout Hospitalization: Therapy Orders & Screens 07/20/19 04:00 BiPap/CPAP STAT Comment: Diagnosis: Pneumonia 07/20/19 05:21 Respiratory Therapy Consult ROUTINE Comment: Reason For Exam: Diagnosis: Pneumonia 07/20/19 10:30 OT Screen per Nursing Assess ONCE Comment: Protocol Order Physician Instructions: Greater than 3 points order OT Admission Screening Reason For Exam: Triggered on Admission Diagnosis: Pneumonia Open Wound/Cellutlitis/Pressure Ulcers: No Acute Fx/ORIF/Change in wt bearing status: No Severe MUSCULOSKELETAL pain: No ADL Dysfunction: Yes Acute CVA w/Hemiparesis/Hemiplegia: No Decreased Functional Mobility/Strength: Yes Sprain/Strain: No Acute Post-op Mobility Dysfunction: No Total Points: 4 PT Screen per Nursing Assess ONCE Comment: Protocol Order Physician Instructions: Greater than 3 points order PT Admission Screenin Reason For Exam: Triggered on Admission Diagnosis: Pneumonia Open Wound/Cellutlitis/Pressure Ulcers: No Acute Fx/ORIF/Change in wt bearing status: No Severe MUSCULOSKELETAL pain: No ADL Dysfunction: Yes Acute CVA w/Hemiparesis/Hemiplegia: No Decreased Functional Mobility/Strength: Yes Sprain/Strain: No Acute Post-op Mobility Dysfunction: No Total Points: 4 RT Screen per Nursing Assess ONCE Comment: Protocol Order Physician Instructions: Greater than 3 points order RT Admission Screen Reason For Exam: Triggered on Admission Diagnosis: Pneumonia Diagnosis: Pneumonia Pneumonia: Yes Home O2: Yes Asthma: No CHF: No Home CPAP/BIPAP: No Home Nebs/MDI: Yes Total Points: 13 ST Screen per Nursing Assess once Comment: Protocol Order Physician Instructions: Greater than [address] Admission Screening Reason For Exam: Triggered on Admission Diagnosis: Pneumonia CVA/Dyshpagia/Aphasia: No Cognitive Deficits: No Dehydration/Nutrition Deficit: No Reflux: No Oral-Motor Difficulties: No Pneumonia: Yes Halfway Resident: Yes Total Points: 10 07/20/19 11:13 Respiratory Therapy Assessment DAILY Comment: Diagnosis: Pneumonia 07/20/19 19:30 Oxygen Nasal Cannula 3 lpm Comment: Diagnosis: Pneumonia Discharge Exam General Appearance: no apparent distress Neurologic Exam: alert, oriented x 3 Respiratory Exam: normal breath sounds, lungs clear, No respiratory distress Cardiovascular Exam: regular rate/rhythm, normal heart sounds Gastrointestinal/Abdomen Exam: soft, No tenderness, No mass Extremity Exam: normal inspection, normal range of motion Final Diagnosis/Problem List - Final Discharge Diagnosis/Problem (1) Sepsis Current Visit: Yes Status: Acute Assessment & Plan: improved, hemodynamically stable (2) UTI (urinary tract infection) Current Visit: Yes Status: Acute Assessment & Plan: ertapenem 1g IM daily x 7 days Code(s): N39.0 - URINARY TRACT INFECTION, SITE NOT SPECIFIED (3) Hemoptysis Current Visit: Yes Status: Acute Code(s): R04.2 - HEMOPTYSIS (4) Rectal bleed Current Visit: Yes Status: Acute Code(s): K62.5 - HEMORRHAGE OF ANUS AND RECTUM (5) Elevated troponin Current Visit: Yes Status: Resolved Code(s): R79.89 - OTHER SPECIFIED ABNORMAL FINDINGS OF BLOOD CHEMISTRY - Discharge Disposition: Home, Self-Care Condition: Good Prescriptions: New Ertapenem Sodium [Ertapenem] 1 gm IM DAILY #7 vial Continue Latanoprost [Xalatan] 1 drops OP HS Ondansetron ODT 4 MG [Zofran Odt 4 mg] 4 mg PO Q8H PRN PRN PRN Reason: Nausea/Vomiting Acetaminophen 325 mg [Tylenol 325 mg] 650 mg PO Q4HPRN PRN PRN Reason: Pain And/Or Fever Acetaminophen 500 mg [Tylenol Extra Strength 500 mg] 1,000 mg PO Q6H PRN PRN PRN Reason: Pain Diphenhydramine HCl 12.5 mg/5* [Benadryl 12.5 mg/5 ml] 10 mg PO Q4HPRN PRN PRN Reason: Cough Benzonatate [Tessalon Perle] 100 mg PO TID Sennosides/Docusate Sodium [Senna-S Tablet] 1 each PO BID Prednisone 5 mg [Deltasone 5 mg] 5 mg PO BID Fluticasone Propionate [Flonase NASAL] 2 sprays NS BID Ferrous Sulfate 325 mg [Feosol 325 mg] 325 mg PO BID Cyanocobalamin (Vitamin B-12) [Vitamin B-12] 1,000 mcg PO DAILY Calcium Carbonate [Oysco-500] 500 mg PO DAILY Oxybutynin Chloride Xl 5 mg [Ditropan XL 5 MG] 5 mg PO DAILY Furosemide 20 mg [Lasix 20 mg] 20 mg PO DAILY Multivitamin/Iron/Folic Acid [Cerovite Advanced Form Tab] 1 tab PO DAILY Albuterol/Ipratropium 3ml Neb* [DUONEB 0.5-3 MG/3 ml Neb] 3 ml IH Q6H PRN PRN PRN Reason: Shortness Of Breath/Wheezing Normal Saline [Normal Saline Flush] 5 ml IV UD Follow up with: JENNY ARITA [Primary Care Provider] - 1 Week
== END 2019-07-26 10:00 | DRG 871 ==
LOC: ED 03:18 → ICU 07:54 → MED SURG 07-25 22:47
PROVIDERS: ADMIT Family Medicine; ATTEND Family Medicine
DX: A41.9 Sepsis, unspecified organism (principal); J18.9 Pneumonia, unspecified organism; N39.0 Urinary tract infection, site not specified; R04.2 Hemoptysis; K62.5 Hemorrhage of anus and rectum; I85.10 Secondary esophageal varices without bleeding; I10 Essential (primary) hypertension; K74.60 Unspecified cirrhosis of liver; D69.6 Thrombocytopenia, unspecified; H54.7 Unspecified visual loss; R79.89 Other specified abnormal findings of blood chemistry; Z85.3 Personal history of malignant neoplasm of breast; Z79.899 Other long term (current) drug therapy
CPT/HCPCS: 36000; 36415; 51702; 71045; 71046; 71260; 74176; 80048; 80053; 80074; 80202; 81001; 82150; 82805; 83605; 83690; 83735; 83880; 84134; 84484; 85025; 85610; 85730; 86140; 87040; 87077; 87086; 87186; 87631; 87651; 93005; 93041; 93306; 94002; 94003; 94760; 94762; 96360; 96361; 96365; 96367; 96368; 99285; 99291; 99292; J0456; J3370; A9270-GY

== ENCOUNTER 2020-06-28 13:37 | Emergency (ER) | payer MEDICARE ==
--- NOTE | 2020-06-28 13:45 | ERPHSYRPT ---
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 She also has a history of hypertension and anxiety. She had a left breast mastectomy in the past and a left hip fracture repair in the past. She is a resident of [facility]. She sees her oncologist and Dr. Gerber. Patient is on iron supplementation for chronic anemia. Patient was diagnosed with positive Covid test on April 2020. She has no Covid symptoms at this time. Patient ate lunch today and then began having just prior to arrival. She is hypotensive and tachycardic. Patient had episode of hematemesis department upon arrival via EMS. Patient states that she has very mild generalized abdominal pain and mild nausea. 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 Activities at Onset: none Abdominal Pain Onset Location: generalized abdomen Pain Radiation: no radiation Severity of Pain-Max: mild Severity of Pain-Current: mild Modifying Factors: Improves With: vomiting Associated Symptoms: diarrhea, nausea, vomiting, weakness Previous symptoms: same symptoms as today, no recent treatment Allergies/Adverse Reactions: amoxicillin [Amoxicillin] Allergy (Mild, Verified 02/15/20 15:33) Home Medications: Latanoprost [Xalatan] 1 drops OP HS 06/19/12 [History] Acetaminophen 325 mg [Tylenol 325 mg] 650 mg PO Q4HPRN PRN 07/20/19 [History] Acetaminophen 500 mg [Tylenol Extra Strength 500 mg] 1,000 mg PO Q6H PRN PRN 07/20/19 [History] Albuterol/Ipratropium 3ml Neb* [DUONEB 0.5-3 MG/3 ml Neb] 3 ml IH Q6H PRN PRN 07/20/19 [History] Benzonatate [Tessalon Perle] 100 mg PO TID 07/20/19 [History] Calcium Carbonate [Oysco-500] 500 mg PO DAILY 07/20/19 [History] Cyanocobalamin (Vitamin B-12) [Vitamin B-12] 1,000 mcg PO DAILY 07/20/19 [History] Diphenhydramine HCl 12.5 mg/5* [Benadryl 12.5 mg/5 ml] 10 mg PO Q4HPRN PRN 07/20/19 [History] Ferrous Sulfate 325 mg [Feosol 325 mg] 325 mg PO BID 07/20/19 [History] Fluticasone Propionate [Flonase NASAL] 2 sprays NS BID 07/20/19 [History] Furosemide 20 mg [Lasix 20 mg] 20 mg PO DAILY 07/20/19 [History] Multivitamin/Iron/Folic Acid [Cerovite Advanced Form Tab] 1 tab PO DAILY 07/20/19 [History] Normal Saline [Normal Saline Flush] 5 ml IV UD 07/20/19 [History] Ondansetron ODT 4 MG [Zofran Odt 4 mg] 4 mg PO Q8H PRN PRN 07/20/19 [History] Oxybutynin Chloride Xl 5 mg [Ditropan XL 5 MG] 5 mg PO DAILY 07/20/19 [History] Prednisone 5 mg [Deltasone 5 mg] 5 mg PO BID 07/20/19 [History] Sennosides/Docusate Sodium [Senna-S Tablet] 1 each PO BID 07/20/19 [History] Hx Tetanus, Diphtheria Vaccination/Date Given: Yes Hx Influenza Vaccination/Date Given: No Hx Pneumococcal Vaccination/Date Given: No Travel Risk - International Travel Have you traveled outside of the country in past 3 weeks: No - Coronavirus Screening Are you exhibiting any of the following symptoms?: No Close contact with a COVID-19 positive Pt in past 14-21 Days: No - Review of Systems Constitutional: Weakness Eyes: No Symptoms Ears, Nose, & Throat: No Symptoms Respiratory: No Symptoms Cardiac: No Symptoms Abdominal/Gastrointestinal: Abdominal Pain (Mild generalized), Hematemesis Genitourinary Symptoms: No Symptoms Musculoskeletal: No Symptoms Skin: No Symptoms Neurological: No Symptoms Psychological: No Symptoms Endocrine: No Symptoms Hematologic/Lymphatic: No Symptoms Immunological/Allergic: No Symptoms All Other Systems: Reviewed and Negative - Past Medical History Pertinent Past Medical History: Yes Neurological History: No Pertinent History ENT History: Glaucoma, Other Cardiac History: Hypertension Respiratory History: No Pertinent History Endocrine Medical History: No Pertinent History Musculoskeletal History: Fractures, Arthritis GI Medical History: No Pertinent History History: No Pertinent History Psycho-Social History: Anxiety Female Reproductive Disorders: Breast Cancer 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 lt hip surgery- fx - Social History Smoking Status: Never smoker Exposure to second hand smoke: No Drug Use: none Patient Lives Alone: No - Nursing Vital Signs Nursing Vital Signs: Initial Vital Signs Temperature 97.7 F 06/28/20 13:41 Pulse Rate 110 H 06/28/20 13:41 Respiratory Rate 22 06/28/20 13:41 Blood Pressure 77/59 06/28/20 13:41 O2 Sat by Pulse Oximetry 86 L 06/28/20 13:41 Pain Scale Pain Intensity 4 - Physical Exam General Appearance: mild distress, alert, anxiety, obese Eye Exam: PERRL/EOMI, pale conjunctivae Ears, Nose, Throat Exam: normal ENT inspection, dry mucous membranes Neck Exam: normal inspection, non-tender, supple, full range of motion Respiratory Exam: normal breath sounds, lungs clear, airway intact, No chest tenderness, No respiratory distress Cardiovascular Exam: tachycardia Pelvic Exam: not done Rectal Exam: not done Back Exam: normal inspection, normal range of motion, No CVA tenderness, No vertebral tenderness Extremity Exam: normal inspection, normal range of motion, pelvis stable Neurologic Exam: alert, oriented x 3, cooperative, sample paster II-XII nml as tested, normal mood/affect, nml cerebellar function, sensation nml Skin Exam: pale Lymphatic Exam: No adenopathy SpO2 Interpretation: normal O2 Delivery: Room Air - Course Nursing assessment & vital signs reviewed: Yes EKG Interpreted by Me: RATE (107), Sinus Tach, NORMAL AXIS, NORMAL INTERVALS, NORMAL QRS, NORMAL ST-T, Other (No acute ischemic changes. Comparison EKGs 07/20/2019. Today's EKG shows only mild sinus tachycardia, ST elevation and nonspecific ST segment changes have now resolved.) Ordered Tests: Active Orders 24 hr Category Date Time Status Catheter-[place] Brown STAT Care 06/28/20 14:13 Active EKG-ER Only STAT Care 06/28/20 14:13 Active IV Insertion STAT Care 06/28/20 13:46 Active IV Insertion-2nd Peripheral STAT Care 06/28/20 14:13 Active ABDOMEN AND PELVIS W/0 CONTRAS [CT] Stat Exams 06/28/20 13:47 Taken AMYLASE Stat Lab 06/28/20 14:00 Completed CBC W DIFF Stat Lab 06/28/20 14:00 Completed CMP Stat Lab 06/28/20 14:00 Completed LIPASE Stat Lab 06/28/20 14:00 Completed Lactic Acid Stat Lab 06/28/20 13:46 Completed Manual Differential NC Stat Lab 06/28/20 14:00 Completed PROTIME WITH INR Stat Lab 06/28/20 14:00 Completed Medication Summary Generic Name Dose Route Start Last Admin Trade Name Freq PRN Reason Stop Dose Admin Sodium Chloride 1,000 mls @ 100 mls/hr 06/28/20 15:00 06/28/20 14:50 Sodium Chloride 0.9% 1000 Ml IV 07/28/20 14:59 100 mls/hr .Q10H MOSES Administration Discontinued Medications Generic Name Dose Route Start Last Admin Trade Name Freq PRN Reason Stop Dose Admin Famotidine 40 mg 06/28/20 13:46 06/28/20 14:04 Pepcid 20 Mg Vial IV 06/28/20 13:47 40 mg STAT ONE Administration Famotidine Confirm 06/28/20 14:03 Pepcid 20 Mg Vial Administered 06/28/20 14:04 Dose 40 mg IV .STK-MED ONE Sodium Chloride 1,000 mls @ 999 mls/hr 06/28/20 13:46 06/28/20 14:55 Sodium Chloride 0.9% 1000 Ml IV 06/28/20 14:46 Infused .Q1H1M STA Infusion Sodium Chloride Confirm 06/28/20 13:49 Sodium Chloride 0.9% 1000 Ml Administered 06/28/20 13:50 Dose 2,000 mls @ ud .ROUTE .STK-MED ONE Sodium Chloride Confirm 06/28/20 14:03 Sodium Chloride 0.9% 1000 Ml Administered 06/28/20 14:04 Dose 1,000 mls @ ud .ROUTE .STK-MED ONE Ondansetron HCl 4 mg 06/28/20 13:46 06/28/20 14:04 Zofran 4 Mg/2 Ml Vial IV 06/28/20 13:47 4 mg STAT ONE Administration Ondansetron HCl Confirm 06/28/20 14:03 Zofran 4 Mg/2 Ml Vial Administered 06/28/20 14:04 Dose 4 mg .ROUTE .STK-MED ONE Lab/Rad Data: Laboratory Result Diagrams 06/28/20 14:00 06/28/20 14:00 Laboratory Results 06/28/20 06/28/20 06/28/20 Range/Units 14:00 14:00 14:00 WBC 12.2 H (4.0-10.5) K/mm3 RBC 3.03 L (4.1-5.4) M/mm3 Hgb 10.6 L (12.0-16.0) gm/dl Hct 34.4 L (35-47) % MCV 113.5 H (78-100) fl MCH 35.0 H (26-32) pg MCHC 30.8 L (32-36) g/dl RDW 16.6 H (11.5-14.0) % Plt Count 172 (150-450) K/mm3 MPV 9.4 (7.5-11.0) fl PT 14.6 H (9.95-12.35) SECONDS INR 1.29 (0.8-3.0) Sodium 133 L (137-145) mmol/L Potassium 3.9 (3.5-5.1) mmol/L Chloride 103 (98-107) mmol/L Carbon Dioxide 21 L (22-30) mmol/L Anion Gap 13.5 (5-15) MEQ/L BUN 13 (7-17) mg/dL Creatinine 0.84 (0.52-1.04) mg/dL Estimated GFR > 60.0 ML/MIN Glucose 257 H (74-106) mg/dL Lactic Acid (0.4-2.0) Calcium 8.5 (8.4-10.2) mg/dL Total Bilirubin 1.40 H (0.2-1.3) mg/dL AST 43 H (14-36) U/L ALT 23 (0-35) U/L Alkaline Phosphatase 164 H (38-126) U/L Serum Total Protein 6.0 L (6.3-8.2) g/dL Albumin 2.7 L (3.5-5.0) g/dL Amylase 46 (30-110) U/L Lipase 127 (23-300) U/L ABO Group Rh Factor Antibody Screen (NEGATIVE) Crossmatch (COMPATIBLE) 06/28/20 06/28/20 Range/Units 13:46 13:45 WBC (4.0-10.5) K/mm3 RBC (4.1-5.4) M/mm3 Hgb (12.0-16.0) gm/dl Hct (35-47) % MCV (78-100) fl MCH (26-32) pg MCHC (32-36) g/dl RDW (11.5-14.0) % Plt Count (150-450) K/mm3 MPV (7.5-11.0) fl PT (9.95-12.35) SECONDS INR (0.8-3.0) Sodium (137-145) mmol/L Potassium (3.5-5.1) mmol/L Chloride (98-107) mmol/L Carbon Dioxide (22-30) mmol/L Anion Gap (5-15) MEQ/L BUN (7-17) mg/dL Creatinine (0.52-1.04) mg/dL Estimated GFR ML/MIN Glucose (74-106) mg/dL Lactic Acid 4.8 H (0.4-2.0) Calcium (8.4-10.2) mg/dL Total Bilirubin (0.2-1.3) mg/dL AST (14-36) U/L ALT (0-35) U/L Alkaline Phosphatase (38-126) U/L Serum Total Protein (6.3-8.2) g/dL Albumin (3.5-5.0) g/dL Amylase (30-110) U/L Lipase (23-300) U/L ABO Group O Rh Factor POSITIVE Antibody Screen NEGATIVE (NEGATIVE) Crossmatch COMPATIBLE (COMPATIBLE) - Progress Progress: improved, re-examined Progress Note: 06/28/20 15:40 CAT scan of the abdomen pelvis without contrast findings consistent with GI bl eeding into the stomach. There is minimal gastric distention. There is no significant findings with regard to liver disease. There is no mention of visible esophageal varices. Medical decision making: This patient has a GI bleed. Although her initial hemoglobin is 10.4, clinically she is pale, she is hypotensive, she is tachycardic, and there is significant amount of gastric distention and he terogeneous material within the gastric lumen. I feel it is reasonable to transfuse at least 1 unit of packed red blood cells into this patient. She may require more. However, I was able to contact Dr. Hoff, the emergency department physician on at this time. I discussed with him the patient history, condition, review of current vital signs and result of the patient's work-up. He agrees with transfusing 1 unit of packed red blood cells. We both agreed to hold on placement of nasogastric tube at this time. He accepts the patient for transfer Counseled pt/family regarding: lab results, diagnosis, rad results - Departure Departure Disposition: Transfer Clinical Impression: Gastrointestinal bleeding, upper, Hypotension, Tachycardia Condition: Serious Critical Care Time: Yes Critical Care Time(excluding separately billable procedures): Critical 30-74 mins Referrals: JENNY ARITA [Primary Care Provider] -
[2020-06-28] MEDS ORDERED: Sodium Chloride 0.9% 1000 ML 1,000 ML IV STA (13:46)
[2020-06-28] MEDS ORDERED: Zofran 4 MG/2 ML VIAL IV ONE (13:46)
[2020-06-28] MEDS ORDERED: Pepcid 20 MG VIAL IV ONE ×2 (13:46→14:03)
[2020-06-28] MEDS ORDERED: Sodium Chloride 0.9% 1000 ML 2,000 ML ONE (13:49)
[2020-06-28] MEDS ORDERED: Sodium Chloride 0.9% 1000 ML 1,000 ML ONE (14:03)
[2020-06-28] MEDS ORDERED: Zofran 4 MG/2 ML VIAL ONE (14:03)
[2020-06-28 14:04] LABS: Hematocrit 34.4 % (35-47); Hemoglobin 10.6 gm/dl (12.0-16.0); Mean Cell Volume 113.5 fl (78-100); Mean Corpuscular Hgb Concent. 30.8 g/dl (32-36); Mean Platelet Volume 9.4 fl (7.5-11.0); Platelet Count 172 K/mm3 (150-450); Red Blood Count 3.03 M/mm3 (4.1-5.4); Red Cell Distribution Width 16.6 % (11.5-14.0); White Blood Count 12.2 K/mm3 (4.0-10.5)
[2020-06-28 14:17] LABS: ALBUMIN 2.7 g/dL (3.5-5.0); ALKALINE PHOSPHATASE 164 U/L (38-126); AMYLASE 46 U/L (30-110); ANION GAP 13.5 MEQ/L (5-15); BLOOD UREA NITROGEN 13 mg/dL (7-17); CHLORIDE 103 mmol/L (98-107); Calcium 8.5 mg/dL (8.4-10.2); Carbon Dioxide 21 mmol/L (22-30); Creatinine 1 0.84 mg/dL (0.52-1.04); EST GLOMERULAR FILTRATION RATE > 60.0 ML/MIN; Glucose 257 mg/dL (74-106); LIPASE 127 U/L (23-300); Potassium 3.9 mmol/L (3.5-5.1); SGOT/AST 43 U/L (14-36); SGPT/ALT 23 U/L (0-35); SODIUM 133 mmol/L (137-145)
[2020-06-28 14:25] LABS: INR 1.29 (0.8-3.0); PROTIME 14.6 SECONDS (9.95-12.35)
[2020-06-28] MEDS ORDERED: Sodium Chloride 0.9% 1000 ML 1,000 ML IV SCH (15:00)
[2020-06-28 15:36] LABS: ABO TYPING O; Antibody Screen NEGATIVE (NEGATIVE); RH TYPING POSITIVE
[2020-06-28 15:37] LABS: CROSS MATCH (PRBC) COMPATIBLE (COMPATIBLE)
[2020-06-28 16:12] VITALS: BP 86/64; PULSE 98; O2SAT 95
[2020-06-28 16:20] LABS: Eosinophil 1 % (0.00-3.0); Lymphocytes 24 % (24-44); Monocyte 4 % (0.0-12.0); Neutrophils 71 % (36.0-66.0); Total Cells Counted 100
[2020-06-28 16:21] LABS: ANISOCYTOSIS 1+; Poikilocytosis 1+
[2020-06-28 16:22] LABS: Platelet Estimate NORMAL (NORMAL)
--- NOTE | 2020-06-28 18:40 | XRAY ---
Indication: Abdomen pain and vomiting blood clots. Multiple contiguous axial images obtained through the abdomen and pelvis without contrast as ordered. Comparison: July 20, 2019. Lung bases again demonstrates bibasilar dependent atelectasis less than before. No infiltrate or effusion. Heart is not enlarged. Again small hiatal hernia, paraesophageal varices, and left mastectomy. Images through the pelvis again limited due to extreme beam artifact from bilateral total hip arthroplasty. Stomach is markedly distended with food/fluid. The fluid in the stomach appears heterogeneous, possible blood products. Medication/bismuth seen in the antral portion of the stomach. Noncontrasted bowel loops appear nonobstructed. No free fluid/air. Appendix not seen. Again nonobstructing calculus in each kidney with interval enlarging right renal calculus today 8 mm, previously 5 mm. Liver again appears cirrhotic with enlarged portal vein. Stable small fundal uterine calcified fibroid and Brown catheter in situ. Remaining liver, gallbladder, pancreas, spleen, adrenal glands, kidneys, and ureters appear unremarkable for noncontrast exam. There remains mild aortoiliac calcifications without AAA. Osseous structures intact again with mild osteopenia. Impression: 1. Pelvis again limited due to beam artifact from bilateral total hip arthroplasty. 2. Abnormal distended stomach with heterogeneous intraluminal fluid possibly blood products. Rule out GI bleed. No free fluid/air. 3. Nonobstructing bilateral renal micro-calculus, enlarged in the right kidney. 4. Again cirrhotic liver, enlarged portal vein, and paraesophageal varices favoring portal hypertension. 5. Stable calcified uterine fibroid and Brown catheter in situ. Comment: Preliminary interpretation was made by [facility]. No critical discrepancy.
== END 2020-06-28 16:20 | disposition short-term general hospital (02) ==
LOC: ED 13:37
DX: K92.2 Gastrointestinal hemorrhage, unspecified (principal); I95.9 Hypotension, unspecified; R00.0 Tachycardia, unspecified; K92.0 Hematemesis; Z79.899 Other long term (current) drug therapy; D63.8 Anemia in other chronic diseases classified elsewhere
CPT/HCPCS: 36000; 36415; 51702; 74176; 80053; 82150; 83605; 83690; 85025; 85610; 86850; 86900; 86901; 86922; 93005; 96360; 96374; 96375; 99285; 99291; P9016; J2405

== ENCOUNTER 2021-05-07 15:22 | Emergency (ER) | payer MEDICARE ==
--- NOTE | 2021-05-07 15:42 | ERPHSYRPT ---
- History of Present Illness Time Seen by Provider: 05/07/21 15:40 Source: patient, EMS, assisted records Exam Limitations: clinical condition Physician History: This is a 70-year-old white female patient who is a assisted resident at [facility]. She has a history of chronic anemia, GI bleed, cirrhosis and thrombocytopenia. In addition, she has history of hypertension and anxiety. Patient is blind and she uses a walker. For some unknown reason she fell in her room hitting her head and her left shoulder. She also complains of some neck pain. Patient was brought into the emergency department via EMS with a c- collar in place. Occurred: just prior to arrival Reason for Fall: unknown Injuries/Pain Location: head, neck, upper extremity Loss of Consciousness: no loss of consciousness (Shoulder) Quality: aching Severity of Pain-Max: mild Severity of Pain-Current: mild Modifying Factors: Improves With: nothing Associated Symptoms (Fall): extremity injury (Left shoulder), headache, neck pain Allergies/Adverse Reactions: amoxicillin [Amoxicillin] Allergy (Mild, Verified 05/07/21 15:57) Home Medications: Latanoprost [Xalatan] 1 drops OP HS 06/19/12 [History] Acetaminophen 325 mg [Tylenol 325 mg] 650 mg PO Q4HPRN PRN 07/20/19 [History] Acetaminophen 500 mg [Tylenol Extra Strength 500 mg] 1,000 mg PO Q6H PRN PRN 07/20/19 [History] Albuterol/Ipratropium 3ml Neb* [DUONEB 0.5-3 MG/3 ml Neb] 3 ml IH Q6H PRN PRN 07/20/19 [History] Benzonatate [Tessalon Perle] 100 mg PO TID 07/20/19 [History] Calcium Carbonate [Oysco-500] 500 mg PO DAILY 07/20/19 [History] Cyanocobalamin (Vitamin B-12) [Vitamin B-12] 1,000 mcg PO DAILY 07/20/19 [History] Diphenhydramine HCl 12.5 mg/5* [Benadryl 12.5 mg/5 ml] 10 mg PO Q4HPRN PRN 07/20/19 [History] Ferrous Sulfate 325 mg [Feosol 325 mg] 325 mg PO BID 07/20/19 [History] Fluticasone Propionate [Flonase NASAL] 2 sprays NS BID 07/20/19 [History] Furosemide 20 mg [Lasix 20 mg] 20 mg PO DAILY 07/20/19 [History] Multivitamin/Iron/Folic Acid [Cerovite Advanced Form Tab] 1 tab PO DAILY 07/20/19 [History] Ondansetron ODT 4 MG [Zofran Odt 4 mg] 4 mg PO Q8H PRN PRN 07/20/19 [His tory] Oxybutynin Chloride Xl 5 mg [Ditropan XL 5 MG] 5 mg PO DAILY 07/20/19 [History] Prednisone 5 mg [Deltasone 5 mg] 5 mg PO BID 07/20/19 [History] Sennosides/Docusate Sodium [Senna-S Tablet] 1 each PO BID 07/20/19 [History] Sodium Chloride 0.9 % (Flush) [Normal Saline Flush] 5 ml IV UD 07/20/19 [History] Hx Tetanus, Diphtheria Vaccination/Date Given: Yes Hx Influenza Vaccination/Date Given: No Hx Pneumococcal Vaccination/Date Given: No Travel Risk - International Travel Have you traveled outside of the country in past 3 weeks: No - Coronavirus Screening Are you exhibiting any of the following symptoms?: No Close contact with a COVID-19 positive Pt in past 14-21 Days: No - Review of Systems Constitutional: No Symptoms Eyes: No Symptoms Ears, Nose, & Throat: No Symptoms Respiratory: No Symptoms Cardiac: No Symptoms Abdominal/Gastrointestinal: No Symptoms Genitourinary Symptoms: No Symptoms Musculoskeletal: Neck Pain, Fall, Injury (Left shoulder) Skin: No Symptoms Neurological: Headache Psychological: No Symptoms Endocrine: No Symptoms Hematologic/Lymphatic: No Symptoms Immunological/Allergic: No Symptoms All Other Systems: Reviewed and Negative - Past Medical History Pertinent Past Medical History: Yes Neurological History: No Pertinent History ENT History: Glaucoma, Other Cardiac History: Hypertension Respiratory History: No Pertinent History Endocrine Medical History: No Pertinent History Musculoskeletal History: Fractures, Arthritis GI Medical History: No Pertinent History History: No Pertinent History Psycho-Social History: Anxiety Female Reproductive Disorders: Breast Cancer 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 lt hip surgery- fx - Social History Smoking Status: Never smoker Exposure to second hand smoke: No Drug Use: none Patient Lives Alone: No - Nursing Vital Signs Nursing Vital Signs: Initial Vital Signs Temperature 96.4 F 05/07/21 15:24 Pulse Rate 91 H 05/07/21 15:24 Respiratory Rate 18 05/07/21 15:24 Blood Pressure 161/86 05/07/21 15:24 O2 Sat by Pulse Oximetry 100 05/07/21 15:24 Pain Scale Pain Intensity 5 - Nena Coma Score Best Eye Response (Nena): (4) open spontaneously Best Verbal Response ([place]): (5) oriented Best Motor Response (Nena): (6) obeys commands Nena Total: 15 - Physical Exam General Appearance: no apparent distress, alert, anxiety Head Injury: lacerations (Left temporal region in the scalp) Eye Exam: PERRL/EOMI, eyes nml inspection ENT Exam: airway nml, nml ext.inspection, No evidence of ENT injury Neck Exam: supple, c-collar in place Respiratory/Chest Exam: normal breath sounds, No chest tenderness, No respiratory distress, No ecchymosis, No crepitus Cardiovascular Exam: normal heart sounds, regular rate/rhythm, normal peripheral pulses Gastrointestinal Exam: soft, normal bowel sounds, No tenderness Rectal Exam: not done Back Exam: normal inspection, normal range of motion, No CVA tenderness, No vertebral tenderness Extremity Exam: pelvis stable, evidence of injury (Ecchymosis proximal shoulder on the left side) Neurologic Exam: alert, oriented x 3, cooperative, sap bpc architect II-XII nml as tested, normal mood/affect, sensation nml Skin Exam: ecchymosis (Proximal left shoulder) SpO2 Interpretation: normal O2 Delivery: Room Air Procedures - Laceration/Wound Repair Left Head Time of Procedure: 16:42 Wound Location: Left, head Wound Length (cm): 3 Wound's Depth, Shape: linear, stellate Wound Explored: clean (No foreign body noted.) Irrigated: Yes ( Evaluation was made to the base in a bloodless field.) Hibiclens Prep: Yes Anesthesia: 1% Lidocaine Volume Anesthetic (ccs): 4 Wound Repaired With: sutures Suture Size/Type: 4-0, nylon Number of Sutures: 7 Layer Closure?: No Sterile Dressing Applied?: Yes Progress: 05/07/21 17:11 The area was prepped with Hibiclens solution. EMLA cream was applied for 45 m inutes. This was wiped off and then the area was injected with 1% lidocaine plain. Approximately 4 mils were used in total. 7 simple interrupted sutures of 4-0 Ethilon were used to provide closure of the laceration site. The incision line was then again cleaned and dried and a thin layer bacitracin ointment was applied. A pressure dressing was then applied. There were no complications the patient taught the procedure well. - Course Nursing assessment & vital signs reviewed: Yes Ordered Tests: Active Orders 24 hr Category Date Time Status IV Insertion STAT Care 05/07/21 16:50 Active Wound Care STAT Care 05/07/21 16:50 Active CERVICAL SPINE WO CONTRAST [CT] Stat Exams 05/07/21 15:42 Completed HEAD WITHOUT CONTRAST [CT] Stat Exams 05/07/21 15:42 Completed SHOULDER Stat Exams 05/07/21 15:42 Completed Medication Summary Discontinued Medications Generic Name Dose Route Start Last Admin Trade Name Freq PRN Reason Stop Dose Admin Bacitracin Zinc 0.9 gm 05/07/21 16:50 05/07/21 16:53 Bacitracin Packet 0.9 Gm Pckt TP 05/07/21 16:51 0.9 gm STAT ONE Administration Bacitracin Zinc Confirm 05/07/21 16:52 Bacitracin Packet 0.9 Gm Pckt Administered 05/07/21 16:53 Dose 1 gm .ROUTE .STK-MED ONE Heparin Sodium (Beef Lung) 500 units 05/07/21 16:51 Heparin Lock Flush Pf 500 Units/5 Ml Syringe PORT FLUSH 05/07/21 16:52 STAT ONE Heparin Sodium (Beef Lung) Confirm 05/07/21 16:52 Heparin Lock Flush Pf 500 Units/5 Ml Syringe Administered 05/07/21 16:53 Dose 500 units .ROUTE .STK-MED ONE Lidocaine HCl 5 ml 05/07/21 16:50 05/07/21 16:52 Lidocaine Hcl 1% 20 Ml Mdv 20 Ml Ml IJ 05/07/21 16:51 5 ml STAT ONE Administration Lidocaine HCl Confirm 05/07/21 16:53 Lidocaine Hcl 1% 20 Ml Mdv 20 Ml Ml Administered 05/07/21 16:54 Dose 5 ml .ROUTE .STK-MED ONE Lidocaine/Prilocaine Confirm 05/07/21 15:49 Lidocaine/Prilocaine 5 Gm 5 Gm Tube Administered 05/07/21 15:50 Dose 5 gm TP .STK-MED ONE Lidocaine/Prilocaine 2.5 gm 05/07/21 16:14 05/07/21 16:15 Lidocaine/Prilocaine 5 Gm 5 Gm Tube TP 05/07/21 16:15 2.5 gm STAT ONE Administration - Progress Progress: improved, re-examined Progress Note: 05/07/21 16:38 CAT scan of the head without contrast has no cranial fracture and no acute intracranial abnormalities. There is left frontal scalp hematoma/laceration. CAT scan of the cervical spine without contrast is negative for any acute fracture or subluxation. X-ray of the left shoulder shows a high riding humeral head commonly seen with a rotator cuff tear. No other acute bony articular or soft tissue abnormalities present. Counseled pt/family regarding: diagnosis, need for follow-up, rad results - Departure Departure Disposition: Extended Care Facility Clinical Impression: Scalp laceration, Contusion of left shoulder, Fall with injury Condition: Stable Critical Care Time: No Referrals: JENNY ARITA [Primary Care Provider] - Follow up/PCP as directed Additional Instructions: Keep head dressing in place for 36 hours. After 36 hours may remove and wash the site daily. Blot dry use a hairdryer to dry the laceration repair site. Apply antibiotic ointment and nonstick gauze after the areas clean. Suture removal in 5 to 7 days. The patient also needs further evaluation of the left shoulder. The patient does not have any fracture or dislocation but it is high riding and this may represent a rotator cuff tear. An MRI should be ordered if indicated and there are no contraindications.
[2021-05-07] MEDS ORDERED: EMLA Cream 5 GM TP ONE ×2 (15:49→16:14)
[2021-05-07 16:30] VITALS: PULSE 92
--- NOTE | 2021-05-07 16:33 | XRAY ---
Indication: Pain following fall. Multiple contiguous axial images obtained through the cervical spine. Sagittal and coronal reformatted images obtained. Comparison: None Osseous structures are demineralized consistent with patient's age. No acute fracture, suspicious bony lesions, or spinal canal stenosis. Minimal/mild C3-C7 degenerative endplate spurring. Sagittal and coronal reformatted images demonstrates lordotic straightening, positional versus paraspinal spasm. Multiple level degenerative disc space narrowing greatest at C4-C6 levels. No acute compression fracture, subluxation, or jumped facet. Normal-appearing craniocervical junction. Visualized noncontrasted soft tissues demonstrates moderate left and mild right carotid calcifications. Incompletely visualized right Port-A-Cath. Lung apices demonstrate pleural-parenchymal fibrosis/scarring. Impression: 1. Cervical lordotic screening, positional versus paraspinal spasm. 2. Negative acute fracture/subluxation. 3. Osteopenia and multilevel degenerative changes.
--- NOTE | 2021-05-07 16:34 | XRAY ---
Indication: Left frontal head injury following fall. Multiple contiguous axial images obtained through the head without contrast. Comparison: August 20, 2017. Again age-appropriate global atrophy with progressive worsening moderate periventricular degenerative micro-ischemia bilaterally. Stable anatomic variant for empty sella. No acute intracranial hemorrhage, abnormal extra-axial fluid collection, or mass effect. Fourth ventricle is midline. Bony calvarium intact. New small left frontal parietal scalp hematoma/laceration. Visualized paranasal sinuses and mastoid air cells are clear. Left orbit again appear small with sclerotic calcifications and extraorbital foreign body. Impression: 1. New left frontal scalp hematoma/laceration. No underlying fracture or acute intracranial abnormalities. 2. Progressive global atrophy and degenerative micro-ischemia.
--- NOTE | 2021-05-07 16:35 | XRAY ---
Indication: Pain following fall. Comparison: None 3 view left shoulder demonstrates osteopenia, moderate acromioclavicular degenerative arthropathy, and high riding humeral head commonly seen with rotator cuff tears. No other bony, articular, or soft tissue abnormalities.
[2021-05-07] MEDS ORDERED: BACIGUENT PACKET TP ONE (16:50)
[2021-05-07] MEDS ORDERED: XYLOCAINE 1% HCL 20 ML MDV IJ ONE (16:50)
[2021-05-07] MEDS ORDERED: BACIGUENT PACKET ONE (16:52)
[2021-05-07] MEDS ORDERED: XYLOCAINE 1% HCL 20 ML MDV ONE (16:53)
[2021-05-07 17:14] VITALS: BP 136/86; O2SAT 92
== END 2021-05-07 17:34 | disposition home or self-care (01) ==
LOC: ED 15:22
DX: S01.01XA Laceration without foreign body of scalp, initial encounter (principal); S40.012A Contusion of left shoulder, initial encounter; W18.30XA Fall on same level, unspecified, initial encounter; Y92.122 Bedroom in nursing home as the place of occurrence of the external cause; M54.2 Cervicalgia; H54.3 Unqualified visual loss, both eyes; I10 Essential (primary) hypertension; E78.5 Hyperlipidemia, unspecified; D53.9 Nutritional anemia, unspecified
CPT/HCPCS: 12002; 36000; 70450; 72125; 73030; 96372; 99284; J1642; A9270-GY

== ENCOUNTER 2021-05-09 12:59 | Observation (INO) | payer MEDICARE ==
[2021-05-09] MEDS ORDERED: Sodium Chloride 0.9% 1000 ML 1,000 ML IV STA (13:40)
[2021-05-09] MEDS ORDERED: Zofran 4 MG/2 ML VIAL IV ONE (13:40)
[2021-05-09 14:00] LABS: BASOPHIL % 0.4 % (0.0-0.4); Basophil (Absolute #) 0.03 (0-0.4); Eosinophil % 1.1 % (0.00-5.0); Eosinophil (Absolute #) 0.09 (0-0.5); Hematocrit 38.8 % (35-47); Hemoglobin 12.3 gm/dl (12.0-16.0); Lymphocyte (Absolute #) 0.98 (1.0-4.6); Lymphocytes % 11.5 % (24.0-44.0); Mean Cell Volume 108.4 fl (78-100); Mean Corpuscular Hemoglobin 34.4 pg (26-32); Mean Corpuscular Hgb Concent. 31.7 g/dl (32-36); Mean Platelet Volume 9.2 fl (7.5-11.0); Monocyte (Absolute #) 1.01 (0.0-1.3); Monocytes % 11.9 % (0.0-12.0); Neutrophil % 75.1 % (36.0-66.0); Platelet Count 150 K/mm3 (150-450); Red Blood Count 3.58 M/mm3 (4.1-5.4); Red Cell Distribution Width 14.2 % (11.5-14.0); White Blood Count 8.5 K/mm3 (4.0-10.5)
[2021-05-09] MEDS ORDERED: Sodium Chloride 0.9% 1000 ML 1,000 ML ONE (14:13)
[2021-05-09] MEDS ORDERED: Zofran 4 MG/2 ML VIAL ONE (14:13)
[2021-05-09 14:23] LABS: ALBUMIN 3.6 g/dL (3.5-5.0); ALKALINE PHOSPHATASE 224 U/L (38-126); ANION GAP 13.2 MEQ/L (5-15); BLOOD UREA NITROGEN 20 mg/dL (7-17); CHLORIDE 105 mmol/L (98-107); Calcium 8.8 mg/dL (8.4-10.2); Carbon Dioxide 25 mmol/L (22-30); Creatinine 1 0.89 mg/dL (0.52-1.04); EST GLOMERULAR FILTRATION RATE > 60.0 ML/MIN; Glucose 101 mg/dL (74-106); LIPASE 45 U/L (23-300); Potassium 3.8 mmol/L (3.5-5.1); SGOT/AST 40 U/L (14-36); SGPT/ALT 24 U/L (0-35); SODIUM 140 mmol/L (137-145); Total Protein 7.4 g/dL (6.3-8.2)
[2021-05-09] MEDS ORDERED: FLAGYL 500 MG IVPB 500 MG/100 ML BAG IV STA (16:36)
[2021-05-09] MEDS ORDERED: Levofloxacin 500MG/100ML D5W 500 MG/100 ML BAG IV STA (16:36)
--- NOTE | 2021-05-09 16:42 | ERPHSYRPT ---
- History of Present Illness Time Seen by Provider: 05/09/21 13:00 Historian: patient, EMS, [facility] records Exam Limitations: no limitations Patient Subjective Stated Complaint: Pt fell 2 days ago and was at this ER, since then pt has been vomiting and hasn't been eating, pt had diarrhea today, pt took a rapid covid test at [facility] and it was negative Triage Nursing Assessment: Pt brought to the ER via EMS, hypertensive, denies pain, reports that her abdomen hurt this morning but states that it doesn't now, pts wound on her left forehead has not been cleaned since her release from the hospital, pt is still in her hospital gown, pt is A&O, pt reports vomiting 3 times today Physician History: 70 years old female legally blind [facility] resident was evaluated 2 days ago for a fall with negative CT head and cervical spine a laceration left forehead was repaired is brought in ER by EMS with decreased oral intake for the last 2 days with multiple episodes of nonprojectile, nonbilious vomiting without hematemesis and off and on dull cramping generalized abdominal pain without any significant aggravating or relieving factors. This morning she started to have loose bowel movements. Denies any abdominal pain at present. half-way concerned about dehydration. No fever or chills reported. Negative COVID-19 rapid test done at [facility]. Timing/Duration: day(s) (2), gradual onset, worse Quality: cramping Abdominal Pain Onset Location: generalized abdomen Severity of Pain-Max: moderate Severity of Pain-Current: none Modifying Factors: Improves With: nothing Associated Symptoms: diarrhea, nausea, vomiting Previous symptoms: no prior history Allergies/Adverse Reactions: amoxicillin [Amoxicillin] Allergy (Mild, Verified 05/09/21 13:01) Home Medications: Latanoprost [Xalatan] 1 drops OP HS 06/19/12 [History] Benzonatate [Tessalon Perle] 100 mg PO TID 07/20/19 [History] Calcium Carbonate [Oysco-500] 500 mg PO DAILY 07/20/19 [History] Ferrous Sulfate 325 mg [Feosol 325 mg] 325 mg PO BID 07/20/19 [History] Ondansetron ODT 4 MG [Zofran Odt 4 mg] 4 mg PO Q8H PRN PRN 07/20/19 [History] Oxybutynin Chloride Xl 5 mg [Ditropan XL 5 MG] 5 mg PO DAILY 07/20/19 [History] Sennosides/Docusate Sodium [Senna-S Tablet] 1 each PO BID 07/20/19 [History] Sodium Chloride 0.9 % (Flush) [Normal Saline Flush] 5 ml IV UD 07/20/19 [History] Duloxetine HCl 30 mg [Cymbalta 30 MG Capsule] 30 mg PO DAILY 05/09/21 [ History] Fluticasone/Vilanterol [Breo Ellipta 100-25 Mcg INH] 1 each IH DAILY 05/09/21 [History] Potassium Chloride 20 meq PO DAILY 05/09/21 [History] Hx Tetanus, Diphtheria Vaccination/Date Given: Yes Hx Influenza Vaccination/Date Given: No Hx Pneumococcal Vaccination/Date Given: No Travel Risk - International Travel Have you traveled outside of the country in past 3 weeks: No - Coronavirus Screening Are you exhibiting any of the following symptoms?: No Close contact with a COVID-19 positive Pt in past 14-21 Days: No - Vaccine Status Have you recieved a Covid-19 vaccination: Yes Special Education Math Teacher: Unknown - Vaccination Dates Dates if Unknown: unknown - Review of Systems Constitutional: Fatigue, Weakness Ears, Nose, & Throat: No Symptoms Respiratory: No Symptoms Cardiac: No Symptoms Abdominal/Gastrointestinal: Abdominal Pain, Nausea, Vomiting, Diarrhea Genitourinary Symptoms: No Symptoms Musculoskeletal: Fall Neurological: No Symptoms Psychological: No Symptoms Endocrine: No Symptoms Hematologic/Lymphatic: No Symptoms Immunological/Allergic: No Symptoms - Past Medical History Pertinent Past Medical History: Yes Neurological History: No Pertinent History ENT History: Glaucoma, Other Cardiac History: Hypertension Respiratory History: No Pertinent History Endocrine Medical History: No Pertinent History Musculoskeletal History: Fractures, Arthritis GI Medical History: No Pertinent History History: No Pertinent History Psycho-Social History: Anxiety Female Reproductive Disorders: Breast Cancer 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 lt hip surgery- fx - Social History Smoking Status: Never smoker Exposure to second hand smoke: No Drug Use: none Patient Lives Alone: No - Female History Hx Now: No - Nursing Vital Signs Nursing Vital Signs: Initial Vital Signs Temperature 98.8 F 05/09/21 13:04 Pulse Rate 88 05/09/21 13:04 Blood Pressure 150/85 05/09/21 13:04 O2 Sat by Pulse Oximetry 97 05/09/21 13:04 Pain Scale Pain Intensity 0 - Physical Exam General Appearance: no apparent distress, alert Eye Exam: No eyes nml inspection Ears, Nose, Throat Exam: normal ENT inspection, pharynx normal Neck Exam: normal inspection, supple, full range of motion Respiratory Exam: normal breath sounds, lungs clear Cardiovascular Exam: regular rate/rhythm, normal heart sounds Gastrointestinal/Abdomen Exam: soft, normal bowel sounds, No tenderness Back Exam: normal inspection, normal range of motion Extremity Exam: normal inspection, normal range of motion Neurologic Exam: alert, oriented x 3, cooperative Skin Exam: normal color SpO2 Interpretation: normal SpO2: 100 O2 Delivery: Room Air Ordered Tests: Active Orders 24 hr Category Date Time Status IV Insertion STAT Care 05/09/21 13:40 Active NPO (ED) STAT Care 05/09/21 13:40 Active ABDOMEN AND PELVIS W/0 CONTRAS [CT] Stat Exams 05/09/21 13:41 Taken HEAD WITHOUT CONTRAST [CT] Stat Exams 05/09/21 13:42 Taken CBC W DIFF Stat Lab 05/09/21 13:40 Completed CMP Stat Lab 05/09/21 14:00 Completed LIPASE Stat Lab 05/09/21 14:00 Completed TROPONIN Stat Lab 05/09/21 14:00 Completed UA W/RFX UR CULTURE Stat Lab 05/09/21 13:41 Ordered Medication Summary Generic Name Dose Route Start Last Admin Trade Name Freq PRN Reason Stop Dose Admin Levofloxacin/Dextrose 500 mg in 100 mls @ 100 mls/hr 05/09/21 16:36 Levofloxacin 500mg/100ml D5w IV 05/09/21 17:35 STAT STA Metronidazole 500 mg in 100 mls @ 200 mls/hr 05/09/21 16:36 Flagyl 500 Mg Ivpb IV 05/09/21 17:05 STAT STA Discontinued Medications Generic Name Dose Route Start Last Admin Trade Name [place] PRN Reason Stop Dose Admin Sodium Chloride 1,000 mls @ 999 mls/hr 05/09/21 13:40 05/09/21 15:29 Sodium Chloride 0.9% 1000 Ml IV 05/09/21 14:40 Infused .Q1H1M STA Infusion Sodium Chloride Confirm 05/09/21 14:13 Sodium Chloride 0.9% 1000 Ml Administered 05/09/21 14:14 Dose 1,000 mls @ ud .ROUTE .STK-MED ONE Ondansetron HCl 4 mg 05/09/21 13:40 05/09/21 14:19 Ondansetron Hcl 4 Mg/2 Ml Vial IV 05/09/21 13:41 4 mg STAT ONE Administration Ondansetron HCl Confirm 05/09/21 14:13 Ondansetron Hcl 4 Mg/2 Ml Vial Administered 05/09/21 14:14 Dose 4 mg .ROUTE .STK-MED ONE Lab/Rad Data: Laboratory Result Diagrams 05/09/21 13:40 05/09/21 14:00 Laboratory Results 05/09/21 05/09/21 05/09/21 Range/Units 14:00 14:00 13:40 WBC 8.5 (4.0-10.5) K/mm3 RBC 3.58 L (4.1-5.4) M/mm3 Hgb 12.3 (12.0-16.0) gm/dl Hct 38.8 (35-47) % MCV 108.4 H (78-100) fl MCH 34.4 H (26-32) pg MCHC 31.7 L (32-36) g/dl RDW 14.2 H (11.5-14.0) % Plt Count 150 (150-450) K/mm3 MPV 9.2 (7.5-11.0) fl Gran % 75.1 H (36.0-66.0) % Eos # (Auto) 0.09 (0-0.5) Absolute Lymphs (auto) 0.98 L (1.0-4.6) Absolute Monos (auto) 1.01 (0.0-1.3) Lymphocytes % 11.5 L (24.0-44.0) % Monocytes % 11.9 (0.0-12.0) % Eosinophils % 1.1 (0.00-5.0) % Basophils % 0.4 (0.0-0.4) % Absolute Granulocytes 6.40 (1.4-6.9) Basophils # 0.03 (0-0.4) Sodium 140 (137-145) mmol/L Potassium 3.8 (3.5-5.1) mmol/L Chloride 105 (98-107) mmol/L Carbon Dioxide 25 (22-30) mmol/L Anion Gap 13.2 (5-15) MEQ/L BUN 20 H (7-17) mg/dL Creatinine 0.89 (0.52-1.04) mg/dL Estimated GFR > 60.0 ML/MIN Glucose 101 (74-106) mg/dL Calcium 8.8 (8.4-10.2) mg/dL Total Bilirubin 1.10 (0.2-1.3) mg/dL AST 40 H (14-36) U/L ALT 24 (0-35) U/L Alkaline Phosphatase 224 H (38-126) U/L Troponin I < 0.012 (0.000-0.034) ng/mL Serum Total Protein 7.4 (6.3-8.2) g/dL Albumin 3.6 (3.5-5.0) g/dL Lipase 45 (23-300) U/L - Progress Progress: improved Progress Note: 05/09/21 16:41 She is given fluid bolus along with Zofran, on reevaluation feeling better. No diarrhea or vomiting while in ER. Work-up showed normal white count, no acute electrolyte abnormality. CT showed finding consistent with colitis, given dose of Levaquin and Flagyl. Discussed with Dr. Echevarria and patient would be admitted for IV antibiotics and hydration. Plan discussed with patient who understand and agrees with it. Discussed with : Masha Will see patient in: hospital (observation) Counseled pt/family regarding: lab results, diagnosis, need for follow-up, rad results - Departure Departure Disposition: Observation Clinical Impression: Infectious colitis, Nausea vomiting and diarrhea Condition: Stable Critical Care Time: No Referrals: JENNY ARITA [Primary Care Provider] - Follow up/PCP as directed
[2021-05-09] MEDS ORDERED: Levofloxacin 500MG/100ML D5W 500 MG/100 ML BAG IV ONE (16:51)
[2021-05-09 17:36] LABS: INFLUENZA A NEGATIVE (NEGATIVE); INFLUENZA B NEGATIVE (NEGATIVE); RESPIRATORY SYNCTIAL VIRUS NEGATIVE (Negative); SARS-CoV-2 Xpert Express NEGATIVE (NEGATIVE)
[2021-05-09] MEDS ORDERED: FLAGYL 500 MG IVPB 500 MG/100 ML BAG IV ONE (17:56)
--- NOTE | 2021-05-09 19:47 | XRAY ---
Indication: Vomiting. Left forehead/contusion following fall. Multiple contiguous axial images obtained through the head without contrast. Comparison: May 07, 2021. Again age appropriate global atrophy with moderate periventricular degenerative micro-ischemia bilaterally. Stable anatomic variant for empty sella. No acute intracranial hemorrhage, abnormal extra-axial fluid collection, or mass effect. Fourth ventricle is midline. Previous left frontal scalp hematoma markedly improved. Bony calvarium intact. Visualized paranasal sinuses and mastoid air cells are clear. Left orbit again appears small with sclerotic calcifications and extraorbital foreign body. Impression: Continued nonacute senile brain with incidental chronic features. Comment: Preliminary interpretation made by [facility]. No critical discrepancy.
--- NOTE | 2021-05-09 19:53 | XRAY ---
Indication: Vomiting. Status post fall fall. Multiple contiguous axial images obtained through the abdomen and pelvis without contrast. Comparison: June 28, 2020. Lung bases again demonstrates dependent atelectasis. Heart not enlarged. Stable small hiatal hernia, paraesophageal varices, and left mastectomy. Images through the pelvis again markedly limited due to extreme beam artifact from bilateral total hip arthroplasty. Noncontrasted stomach and bowel loops are nonobstructed. Appendix not seen. Stable cirrhotic appearing liver and enlarged main portal vein. No free fluid/air. Right kidney again demonstrates 1.2 cm nonobstructing calculus. Remaining liver, gallbladder, pancreas, spleen adrenal glands, kidneys, ureters, and bladder are unremarkable for noncontrast exam. Stable mild aortoiliac calcifications without AAA. Osseous structures intact again with mild osteopenia. Impression: 1. Pelvis again limited due to extreme beam artifact from bilateral total hip arthroplasty. 2. Stable cirrhotic liver, enlarged portal vein, and paraesophageal varices favoring portal hypertension. No ascites. 3. Again incidental nonobstructing right renal calculus and osteopenia. Comment: Preliminary interpretation made by [facility]. No critical discrepancy.
[2021-05-09] MEDS ORDERED: Zofran 4 MG/2 ML VIAL IV PRN (20:01)
[2021-05-09] MEDS ORDERED: DUONEB 0.5-3 MG/3 ml Neb IH SCH (20:01)
[2021-05-09] MEDS ORDERED: MORPHINE SULFATE 2 MG INJ IV PRN (20:01)
[2021-05-09] MEDS ORDERED: TYLENOL 325 MG PO PRN (20:01)
[2021-05-09] MEDS ORDERED: PEROXIDE 3% ONE (20:48)
[2021-05-10] MEDS ORDERED: Sodium Chloride 0.9% W/ 20 mEq KCl/LITER 1,000 ML IV ONE (01:50)
[2021-05-10] MEDS: Sodium Chloride 0.9% W/ 20 mEq KCl/LITER 1,000 ML IV SCH ×3 (01:52→22:23)
[2021-05-10] MEDS: FLAGYL 500 MG IVPB 500 MG/100 ML BAG IV SCH ×5 (01:52→17:37)
[2021-05-10 02:16] LABS: 027 TOX PROD PRESUMPTIVE NEGATIVE (NEGATIVE); TOXIGENIC C. DIFF ORG NEGATIVE (NEGATIVE)
[2021-05-10 06:01] LABS: Absolute Neutrophil Ct (ANC) 4.99 (1.4-6.9); BASOPHIL % 0.3 % (0.0-0.4); Basophil (Absolute #) 0.02 (0-0.4); Eosinophil % 1.6 % (0.00-5.0); Eosinophil (Absolute #) 0.12 (0-0.5); Hematocrit 35.5 % (35-47); Hemoglobin 11.2 gm/dl (12.0-16.0); Lymphocyte (Absolute #) 1.08 (1.0-4.6); Lymphocytes % 14.5 % (24.0-44.0); Mean Cell Volume 108.9 fl (78-100); Mean Corpuscular Hemoglobin 34.4 pg (26-32); Mean Corpuscular Hgb Concent. 31.5 g/dl (32-36); Mean Platelet Volume 9.4 fl (7.5-11.0); Monocyte (Absolute #) 1.24 (0.0-1.3); Monocytes % 16.6 % (0.0-12.0); Platelet Count 136 K/mm3 (150-450); Red Blood Count 3.26 M/mm3 (4.1-5.4); Red Cell Distribution Width 14.2 % (11.5-14.0); White Blood Count 7.5 K/mm3 (4.0-10.5)
[2021-05-10 06:57] LABS: ALBUMIN 3.3 g/dL (3.5-5.0); ALKALINE PHOSPHATASE 203 U/L (38-126); ANION GAP 7.7 MEQ/L (5-15); BLOOD UREA NITROGEN 13 mg/dL (7-17); CHLORIDE 107 mmol/L (98-107); Calcium 8.3 mg/dL (8.4-10.2); Carbon Dioxide 27 mmol/L (22-30); Creatinine 1 0.61 mg/dL (0.52-1.04); EST GLOMERULAR FILTRATION RATE > 60.0 ML/MIN; Glucose 87 mg/dL (74-106); PREALBUMIN 10.67 mg/dL (17.6-36.0); Potassium 3.1 mmol/L (3.5-5.1); SGOT/AST 34 U/L (14-36); SGPT/ALT 21 U/L (0-35); SODIUM 139 mmol/L (137-145); Total Protein 6.9 g/dL (6.3-8.2)
[2021-05-10] MEDS: Advair Hfa 115/21 Common canister IH SCH ×2 (08:51→21:13)
[2021-05-10] MEDS ORDERED: Klor Con 10 MEQ PO ONE (10:30)
[2021-05-10] MEDS ORDERED: ZOFRAN ODT 4 MG PO PRN (10:45)
[2021-05-10] MEDS ORDERED: Tessalon Perles 100 MG PO PRN (10:45)
[2021-05-10] MEDS: Cymbalta 30 MG Capsule PO SCH (11:00)
[2021-05-10] MEDS: PROTONIX 40 MG IV IV SCH (11:00)
[2021-05-10] MEDS: FEOSOL 325 MG PO SCH ×2 (11:00→22:23)
[2021-05-10] MEDS: Levofloxacin 500MG/100ML D5W 500 MG/100 ML BAG IV SCH (11:01)
[2021-05-10] MEDS: Klor Con 10 MEQ PO SCH (13:12)
[2021-05-10] MEDS: Calcium 500MG W/Vit D Tablet PO SCH (13:13)
[2021-05-10] MEDS: Ditropan XL 5 MG PO SCH (13:13)
[2021-05-10] MEDS ORDERED: Xalatan OP SCH (22:00)
[2021-05-10] MEDS ORDERED: NON-FORMULARY ITEM (Calcium Carb, Citrate/Vit D3 [Calcium + D3 Er Tablet] 1 EACH Tablet.Er PO SCH (22:00)
[2021-05-10] MEDS: Tums EX 750 MG PO SCH (22:25)
[2021-05-11] MEDS: FLAGYL 500 MG IVPB 500 MG/100 ML BAG IV SCH ×3 (01:14→11:37)
[2021-05-11 05:17] LABS: Hematocrit 34.7 % (35-47); Hemoglobin 10.9 gm/dl (12.0-16.0); Mean Cell Volume 110.5 fl (78-100); Mean Corpuscular Hemoglobin 34.7 pg (26-32); Mean Corpuscular Hgb Concent. 31.4 g/dl (32-36); Mean Platelet Volume 9.3 fl (7.5-11.0); Platelet Count 113 K/mm3 (150-450); Red Blood Count 3.14 M/mm3 (4.1-5.4); Red Cell Distribution Width 14.3 % (11.5-14.0)
[2021-05-11 05:46] LABS: ANION GAP 9.6 MEQ/L (5-15); BLOOD UREA NITROGEN 14 mg/dL (7-17); CHLORIDE 113 mmol/L (98-107); Calcium 8.2 mg/dL (8.4-10.2); Carbon Dioxide 23 mmol/L (22-30); Creatinine 1 0.65 mg/dL (0.52-1.04); EST GLOMERULAR FILTRATION RATE > 60.0 ML/MIN; Glucose 90 mg/dL (74-106); SODIUM 141 mmol/L (137-145)
[2021-05-11] MEDS: Advair Hfa 115/21 Common canister IH SCH (07:15)
[2021-05-11] MEDS: Sodium Chloride 0.9% W/ 20 mEq KCl/LITER 1,000 ML IV SCH (07:35)
[2021-05-11] MEDS: Cymbalta 30 MG Capsule PO SCH (09:48)
[2021-05-11] MEDS: Klor Con 10 MEQ PO SCH (09:48)
[2021-05-11] MEDS: Calcium 500MG W/Vit D Tablet PO SCH (09:48)
[2021-05-11] MEDS: FEOSOL 325 MG PO SCH (09:49)
[2021-05-11] MEDS: Ditropan XL 5 MG PO SCH (09:49)
[2021-05-11] MEDS: PROTONIX 40 MG IV IV SCH (09:50)
[2021-05-11] MEDS: Levofloxacin 500MG/100ML D5W 500 MG/100 ML BAG IV SCH (09:50)
[2021-05-11] MEDS: Tums EX 750 MG PO SCH (09:58)
[2021-05-11] MEDS ORDERED: NON-FORMULARY ITEM (Potassium Chloride [Potassium Chloride] 20 MEQ Tab.Er.Prt) PO SCH (10:00)
[2021-05-11] MEDS ORDERED: CALCIUM CARBONATE 500 MG PO SCH (10:00)
[2021-05-11 13:00] VITALS: BP 119/63; PULSE 85; O2SAT 97
[2021-05-13 17:07] LABS: Adenovirus F40/41 Not Detected (Not Detected); Astrovirus Not Detected (Not Detected); Campylobacter Not Detected (Not Detected); Cryptosporidium Not Detected (Not Detected); Cyclospora cayetanensis Not Detected (Not Detected); Entamoeba histolytica Not Detected (Not Detected); Enteroaggregative E coli Not Detected (Not Detected); Giardia lamblia Not Detected (Not Detected); Norovirus GI/GII Not Detected (Not Detected); Plesiomonas shigelloides Not Detected (Not Detected); Rotavirus A Not Detected (Not Detected); Salmonella Not Detected (Not Detected); Shigella/Enterinvasive E coli Not Detected (Not Detected); Vibrio Not Detected (Not Detected); Vibrio cholerae Not Detected (Not Detected); Yersinia enterocolitica Not Detected (Not Detected)
[2021-05-13 17:54] LABS: Sapovirus Not Detected (Not Detected)
--- NOTE | 2021-05-14 21:01 | PCM.HP ---
History of Present Illness - Chief Complaint Chief Complaint: Infectious colitis Date: 05/10/21 History of Present Illness: is a 70 year old female. Pt. 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 Upon presentation the patient was stable and no complaints, but CT noted colitis, despite normal labs, it was felt the patient was stable and needed to be observed for definitive improvement of her symptoms. - Review of Systems Constitutional: No Fever, No Chills Eyes: No Symptoms Ears, Nose, & Throat: No Symptoms Respiratory: No Cough, No Short Of Breath Cardiac: No Chest Pain, No Edema, No Syncope Abdominal/Gastrointestinal: Nausea, Vomiting, No Abdominal Pain, No Diarrhea Genitourinary Symptoms: No Dysuria Musculoskeletal: No Back Pain, No Neck Pain Skin: No Rash Neurological: No Dizziness, No Focal Weakness, No Sensory Changes Psychological: No Symptoms Endocrine: No Symptoms Hematologic/Lymphatic: No Symptoms Immunological/Allergic: No Symptoms Medications & Allergies Home Medications: Home Medication List Latanoprost [Xalatan] 1 drops OP HS 06/19/12 [History Confirmed 05/10/21] Benzonatate [Tessalon Perle] 100 mg PO Q8HPRN PRN 07/20/19 [History Confirmed 1 07/11/20] Calcium Carbonate [[place]-500] 500 mg PO DAILY 07/20/19 [History Confirmed 05/10/21] Ferrous Sulfate 325 mg [Feosol 325 mg] 325 mg PO BID 07/20/19 [History Confirmed 05/10/21] Ondansetron ODT 4 MG [Zofran Odt 4 mg] 4 mg PO Q8H PRN PRN 07/20/19 [History Confirmed 05/10/21] Oxybutynin Chloride Xl 5 mg [Ditropan XL 5 MG] 5 mg PO DAILY 07/20/19 [History Confirmed 05/10/21] Sennosides/Docusate Sodium [Senna-S Tablet] 1 each PO BID PRN 07/20/19 [History Confirmed 05/10/21] Duloxetine HCl 30 mg [Cymbalta 30 MG Capsule] 30 mg PO DAILY 05/09/21 [History Confirmed 05/10/21] Potassium Chloride 20 meq PO DAILY 05/09/21 [History Confirmed 05/10/21] Calcium Carb, Citrate/Vit D3 [Calcium + D3 ER Tablet] 1 each PO BID 05/10/21 [History Confirmed 05/10/21] Docusate Sodium [Colace] 100 mg PO BID 05/10/21 [History Confirmed 05/10/21] Metronidazole 500 mg [Flagyl 500 MG] 500 mg PO BID 7 Days #14 tablet 05/11/21 [Rx] levoFLOXacin [Levofloxacin] 500 mg PO DAILY 7 Days #7 tablet 05/11/21 [Rx] Allergies/Adverse Reactions: Allergies Allergy/AdvReac Type Severity Reaction Status Date / Time Sulfa (Sulfonamide Allergy Intermediate Verified 05/10/21 04:24 Antibiotics) amoxicillin [Amoxicillin] Allergy Mild Verified 05/09/21 13:01 - Past Medical History Past Medical History: Yes Neurological History: No Pertinent History ENT History: Glaucoma, Other (deaf with cochlear implants) Cardiac History: Hypertension Respiratory History: No Pertinent History Endocrine Medical History: No Pertinent History Musculoskelatal History: Fractures, Arthritis GI Medical History: No Pertinent History History: No Pertinent History Pyscho-Social History: Anxiety Reproductive Disorders: Breast Cancer Comment: blind since from cataracts; left hip fracture - Female History Are you now?: No - Past Surgical History Past Surgical History: Yes Neuro Surgical History: No Pertinent History Cardiac History: No Pertinent History Respiratory Surgery: No Pertinent History GI Surgical History: No Pertinent History Genitourinary Surgical Hx: No Pertinent History Musculskeletal Surgical Hx: No Pertinent History Female Surgical History: Mastectomy, Lumpectomy Other Surgical History: left breast mastectomy,cvl port placed.,rufus eye surgeries. lt hip surgery- fx - Social History Smoking Status: Never smoker Exposure to second hand smoke: No Alcohol: None Drug Use: none - Physical Exam General Appearance: no apparent distress, alert Neurologic Exam: alert, oriented x 3, cooperative, normal mood/affect, nml cerebellar function, nml station & gait, sensation nml, No motor deficits Eye Exam: other (blind with abnormal appearance of left eye and both eyes non- functional to a useful degree) Ears, Nose, Throat Exam: normal ENT inspection, TMs normal, pharynx normal, moist mucous membranes Neck Exam: normal inspection, non-tender, supple, full range of motion Respiratory Exam: normal breath sounds, lungs clear, No respiratory distress Cardiovascular Exam: regular rate/rhythm, normal heart sounds, normal peripheral pulses Gastrointestinal/Abdomen Exam: soft, normal bowel sounds, No tenderness, No mass Back Exam: normal inspection, normal range of motion, No CVA tenderness, No vertebral tenderness Extremity Exam: normal inspection, normal range of motion, pelvis stable Skin Exam: normal color, warm, dry, No rash Lymphatic Exam: No adenopathy Assessment/Plan (1) Infectious colitis Status: Acute Assessment & Plan: started on appropriate antibiotic therapy Code(s): A09 - INFECTIOUS GASTROENTERITIS AND COLITIS, UNSPECIFIED (2) Nausea vomiting and diarrhea Status: Acute Assessment & Plan: anti-emetics as needed and gentle iv hydration. Code(s): R11.2 - NAUSEA WITH VOMITING, UNSPECIFIED; R19.7 - DIARRHEA, UNSPECIFIED (3) Scalp laceration Status: Acute Assessment & Plan: healing well, no further treatment needed at this time.
== END 2021-05-11 16:03 ==
LOC: ED 12:59 → MED SURG 19:31
PROVIDERS: ADMIT Family Medicine; ATTEND Family Medicine
DX: A09 Infectious gastroenteritis and colitis, unspecified (principal); R11.2 Nausea with vomiting, unspecified; I10 Essential (primary) hypertension; E87.6 Hypokalemia; Z79.899 Other long term (current) drug therapy; Z20.828 Contact with and (suspected) exposure to other viral communicable diseases
CPT/HCPCS: 0097U; 0241U; 36000; 36415; 70450; 74176; 80048; 80053; 82947; 83036; 83690; 84134; 84484; 85025; 85027; 87493; 94640; 94760; 96360; 96365; 96374; 99285; G0378; J1642; J1956; J2405; A9270-GY

== ENCOUNTER 2023-01-05 14:10 | Observation (INO) | payer MEDICARE, OTHER ==
[2023-01-05] MEDS ORDERED: Sodium Chloride 0.9% 1000 ML 1,000 ML ONE (14:54)
[2023-01-05] MEDS: Sodium Chloride 0.9% 1000 ML 1,000 ML IV SCH (14:54)
[2023-01-05 15:02] LABS: Absolute Neutrophil Ct (ANC) 5.92 x10^3/uL (1.4-6.9); Basophil (Absolute #) 0.08 x10^3/uL (0-0.4); Eosinophil % 3.7 % (0.00-5.0); Hematocrit 39.3 % (35-47); Hemoglobin 12.7 g/dL (12.0-16.0); IMMATURE GRAN # 0.08 x10^3u/L (0.00-0.03); Lymphocyte (Absolute #) 0.99 x10^3/uL (1.0-4.6); Lymphocytes % 12.3 % (24.0-44.0); Mean Cell Volume 104.8 fL (78-100); Mean Corpuscular Hemoglobin 33.9 pg (26-32); Mean Corpuscular Hgb Concent. 32.3 g/dL (32-36); Mean Platelet Volume 9.4 fL (7.5-11.0); Monocytes % 8.7 % (0.0-12.0); Neutrophil % 73.3 % (36.0-66.0); Platelet Count 135 x10^3/uL (150-450); Red Blood Count 3.75 x10^6/uL (4.1-5.4); Red Cell Distribution Width 13.9 % (11.5-14.0); White Blood Count 8.1 x10^3/uL (4.0-10.5)
[2023-01-05 15:21] LABS: IFOB TEST RESULTS POSITIVE (NEGATIVE); INR 0.97 (0.8-3.0); PROTIME 10.6 SECONDS (9.4-12.5); PTT 25.3 SECONDS (25.1-36.5)
[2023-01-05 15:59] LABS: ABO TYPING O; Antibody Screen NEGATIVE (NEGATIVE); RH TYPING POSITIVE
[2023-01-05 16:08] LABS: ALBUMIN 3.9 g/dL (3.5-5.0); ANION GAP 13.4 MEQ/L (5-15); BILIRUBIN,TOTAL 0.8 mg/dL (0.2-1.3); Calcium 9.7 mg/dL (8.4-10.2); Creatinine 1 1.23 mg/dL (0.52-1.04); EST GLOMERULAR FILTRATION RATE 45.6 ML/MIN; Potassium 4.2 mmol/L (3.5-5.1); Total Protein 7.9 g/dL (6.3-8.2)
--- NOTE | 2023-01-05 18:02 | ERPHSYRPT ---
- History of Present Illness Time Seen by Provider: 01/05/23 14:58 Historian: EMS, half-way records Exam Limitations: clinical condition Patient Subjective Stated Complaint: pt here for bloody stools today. Triage Nursing Assessment: pt alert, legally blind, [place], skin w/d/pale . abd soft, nontender, has mastectomy on left side. pt has no cos Physician History: Patient is a 72-year-old white female legally blind who is from the half-way who presents with a history of rectal bleeding black tarry stools noted at the half-way she has a history of some hemorrhoids. Timing/Duration: today Activities at Onset: other (Walking) Abdominal Pain Onset Location: generalized abdomen Modifying Factors: Improves With: nothing Previous symptoms: same symptoms as today Allergies/Adverse Reactions: Sulfa (Sulfonamide Antibiotics) Allergy (Intermediate, Verified 01/05/23 14:34) amoxicillin [Amoxicillin] Allergy (Mild, Verified 01/05/23 14:34) Cephalosporins Allergy (Unknown, Verified 01/05/23 14:34) THIS ALLERGY ADDED PER ALF NURSE Home Medications: Latanoprost [Xalatan] 1 drops OP HS 06/19/12 [History] Benzonatate [Tessalon Perle] 100 mg PO Q8HPRN PRN 07/20/19 [History] Ferrous Sulfate 325 mg [Feosol 325 mg] 325 mg PO BID 07/20/19 [History] Ondansetron ODT 4 MG [Zofran Odt 4 mg] 4 mg PO Q4H PRN PRN 07/20/19 [History] Sennosides/Docusate Sodium [Senna-S Tablet] 1 each PO DAILY PRN 07/20/19 [History] Potassium Chloride 20 meq PO DAILY 05/09/21 [History] Calcium Carb, Citrate/Vit D3 [Calcium + D3 ER Tablet] 1 each PO BID 05/10/21 [History] Docusate Sodium [Colace] 100 mg PO BID 05/10/21 [History] Acetaminophen 325 mg [Tylenol 325 mg] 2 tab PO Q6H PRN PRN 08/09/22 [History] Fluticasone/Vilanterol [Breo Ellipta 100-25 Mcg INH] 1 puff PO DAILY 08/09/22 [History] Bisacodyl 10 mg [Dulcolax 10 MG SUPP] 10 mg RC DAILY PRN 01/05/23 [History] Cetirizine HCl [Zyrtec] 10 mg PO DAILY 01/05/23 [History] Hx Tetanus, Diphtheria Vaccination/Date Given: No Hx Influenza Vaccination/Date Given: Yes Hx Pneumococcal Vaccination/Date Given: Yes Immunizations Up to Date: Yes Travel Risk - International Travel Have you traveled outside of the country in past 3 weeks: No - Coronavirus Screening Are you exhibiting any of the following symptoms?: No Close contact with a COVID-19 positive Pt in past 14-21 Days: No - Vaccine Status Have you recieved a Covid-19 vaccination: Yes Fitness Plan Coordinator: Unknown - Vaccination Dates Dates if Unknown: unknown - Review of Systems Constitutional: Weakness, No Fever, No Chills Eyes: No Symptoms Ears, Nose, & Throat: No Symptoms Respiratory: No Cough, No Dyspnea Cardiac: No Chest Pain, No Edema, No Syncope Abdominal/Gastrointestinal: Melena, No Abdominal Pain, No Nausea, No Vomiting, No Diarrhea Genitourinary Symptoms: No Dysuria Musculoskeletal: No Back Pain, No Neck Pain Skin: No Rash Neurological: No Dizziness, No Focal Weakness, No Sensory Changes Psychological: No Symptoms Endocrine: No Symptoms All Other Systems: Reviewed and Negative - Past Medical History Pertinent Past Medical History: Yes Neurological History: No Pertinent History ENT History: Glaucoma, Other Cardiac History: Hypertension Respiratory History: No Pertinent History Endocrine Medical History: No Pertinent History Musculoskeletal History: Fractures, Arthritis GI Medical History: Cirrhosis, GERD History: No Pertinent History Psycho-Social History: Anxiety, Depression Female Reproductive Disorders: Breast Cancer 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, left hip fracture, anemia, hypokalemia, overactive bladder, dysphagia, thinitis, UTI, covid-19 - Past Surgical History Past Surgical History: Yes Neuro Surgical History: No Pertinent History Cardiac: No Pertinent History Respiratory: No Pertinent History Gastrointestinal: No Pertinent History Genitourinary: No Pertinent History Musculoskeletal: No Pertinent History Female Surgical History: Mastectomy, Lumpectomy Other Surgical History: left breast mastectomy,cvl port placed.,rufus eye surgeries. lt hip surgery- fx - Social History Smoking Status: Unknown if ever smoked Exposure to second hand smoke: No Drug Use: none Patient Lives Alone: No - Nursing Vital Signs Nursing Vital Signs: Initial Vital Signs Respiratory Rate 16 01/05/23 14:24 Blood Pressure 135/98 01/05/23 14:24 O2 Sat by Pulse Oximetry 96 01/05/23 14:24 Pain Scale Pain Intensity 0 - Physical Exam General Appearance: mild distress Eye Exam: eyes nml inspection (Patient is legally blind) Ears, Nose, Throat Exam: normal ENT inspection, pharynx normal, moist mucous membranes Neck Exam: normal inspection, non-tender, supple, full range of motion Respiratory Exam: normal breath sounds, lungs clear, No respiratory distress Cardiovascular Exam: regular rate/rhythm, normal heart sounds Gastrointestinal/Abdomen Exam: soft, normal bowel sounds Rectal Exam: black stool Back Exam: normal inspection Extremity Exam: normal inspection, normal range of motion SpO2: 95 - Course Nursing assessment & vital signs reviewed: Yes Ordered Tests: Active Orders 24 hr Category Date Time Status IV Insertion STAT Care 01/05/23 14:20 Active CBC W DIFF Stat Lab 01/05/23 14:47 Completed CMP Stat Lab 01/05/23 15:49 Completed CULTURE,URINE Stat Lab 01/05/23 18:10 Received Lactic Acid Stat Lab 01/05/23 14:20 Completed Occult Blood-Fecal Screen (Diagnostic) [OB-FECAL SCREEN Lab 01/05/23 14:47 Completed ] Stat PROTIME WITH INR Stat Lab 01/05/23 14:47 Completed PTT Stat Lab 01/05/23 14:47 Completed UA W/RFX UR CULTURE Stat Lab 01/05/23 18:27 Ordered Medication Summary Generic Name Dose Route Start Last Admin Trade Name [place] PRN Reason Stop Dose Admin Sodium Chloride 1,000 mls @ 150 mls/hr 01/05/23 14:30 01/05/23 14:54 Sodium Chloride 0.9% 1000 Ml IV 02/04/23 14:29 150 mls/hr .[id number] MOSES Administration Lab/Rad Data: Laboratory Result Diagrams 01/05/23 14:47 01/05/23 15:49 Laboratory Results 01/05/23 01/05/23 01/05/23 Range/Units 15:49 14:47 14:47 WBC (4.0-10.5) x10^3/uL RBC (4.1-5.4) x10^6/uL Hgb (12.0-16.0) g/dL Hct (35-47) % MCV (78-100) fL MCH (26-32) pg MCHC (32-36) g/dL RDW (11.5-14.0) % Plt Count (150-450) x10^3/uL MPV (7.5-11.0) fL Gran % (36.0-66.0) % Immature Gran % (Auto) (0.00-0.4) % Nucleat RBC Rel Count (0.00-0.1) % Eos # (Auto) (0-0.5) x10^3/uL Immature Gran # (Auto) (0.00-0.03) x10^3u/L Absolute Lymphs (auto) (1.0-4.6) x10^3/uL Absolute Monos (auto) (0.0-1.3) x10^3/uL Absolute Nucleated RBC (0.00-0.01) x10^3u/L Lymphocytes % (24.0-44.0) % Monocytes % (0.0-12.0) % Eosinophils % (0.00-5.0) % Basophils % (0.0-0.4) % Absolute Granulocytes (1.4-6.9) x10^3/uL Basophils # (0-0.4) x10^3/uL PT (9.4-12.5) SECONDS INR (0.8-3.0) APTT (25.1-36.5) SECONDS Sodium 143 (137-145) mmol/L Potassium 4.2 (3.5-5.1) mmol/L Chloride 107 (98-107) mmol/L Carbon Dioxide 27 (22-30) mmol/L Anion Gap 13.4 (5-15) MEQ/L BUN 27 H (7-17) mg/dL Creatinine 1.23 H (0.52-1.04) mg/dL Estimated GFR 45.6 ML/MIN Glucose 97 (74-106) mg/dL Lactic Acid (0.4-2.0) Calcium 9.7 (8.4-10.2) mg/dL Total Bilirubin 0.80 (0.2-1.3) mg/dL AST 50 H (14-36) U/L ALT 34 (0-35) U/L Alkaline Phosphatase 189 H (38-126) U/L Serum Total Protein 7.9 (6.3-8.2) g/dL Albumin 3.9 (3.5-5.0) g/dL Stl Occult Blood (IFOB) POSITIVE A (NEGATIVE) ABO Group O Rh Factor POSITIVE Antibody Screen NEGATIVE (NEGATIVE) 01/05/23 01/05/23 01/05/23 Range/Units 14:47 14:47 14:20 WBC 8.1 (4.0-10.5) x10^3/uL RBC 3.75 L (4.1-5.4) x10^6/uL Hgb 12.7 (12.0-16.0) g/dL Hct 39.3 (35-47) % MCV 104.8 H (78-100) fL MCH 33.9 H (26-32) pg MCHC 32.3 (32-36) g/dL RDW 13.9 (11.5-14.0) % Plt Count 135 L (150-450) x10^3/uL MPV 9.4 (7.5-11.0) fL Gran % 73.3 H (36.0-66.0) % Immature Gran % (Auto) 1.0 H (0.00-0.4) % Nucleat RBC Rel Count 0.0 (0.00-0.1) % Eos # (Auto) 0.30 (0-0.5) x10^3/uL Immature Gran # (Auto) 0.08 H (0.00-0.03) x10^3u/L Absolute Lymphs (auto) 0.99 L (1.0-4.6) x10^3/uL Absolute Monos (auto) 0.70 (0.0-1.3) x10^3/uL Absolute Nucleated RBC 0.00 (0.00-0.01) x10^3u/L Lymphocytes % 12.3 L (24.0-44.0) % Monocytes % 8.7 (0.0-12.0) % Eosinophils % 3.7 (0.00-5.0) % Basophils % 1.0 (0.0-0.4) % Absolute Granulocytes 5.92 (1.4-6.9) x10^3/uL Basophils # 0.08 (0-0.4) x10^3/uL PT 10.6 (9.4-12.5) SECONDS INR 0.97 (0.8-3.0) APTT 25.3 (25.1-36.5) SECONDS Sodium (137-145) mmol/L Potassium (3.5-5.1) mmol/L Chloride (98-107) mmol/L Carbon Dioxide (22-30) mmol/L Anion Gap (5-15) MEQ/L BUN (7-17) mg/dL Creatinine (0.52-1.04) mg/dL Estimated GFR ML/MIN Glucose (74-106) mg/dL Lactic Acid 1.1 (0.4-2.0) Calcium (8.4-10.2) mg/dL Total Bilirubin (0.2-1.3) mg/dL AST (14-36) U/L ALT (0-35) U/L Alkaline Phosphatase (38-126) U/L Serum Total Protein (6.3-8.2) g/dL Albumin (3.5-5.0) g/dL Stl Occult Blood (IFOB) (NEGATIVE) ABO Group Rh Factor Antibody Screen (NEGATIVE) - Progress Progress: unchanged Medical Desision Making - Discussion of managment Care discussed with:: hospitalist Reviewed:: Test results Agreed on:: Treatment plan Will see patient: in hospital - Diagnostic Testing Diagnostic test were ordered, analyzed, and reviewed by me: Yes - Risk of complications The pt has a mod risk of morbidity or mortality based on: Need for minor surgical intervention in patient with know risk factors - Departure Departure Disposition: In-patient Admission Clinical Impression: GI bleed Condition: Stable Critical Care Time: No Referrals: ENVIVE,ENVIVE [Primary Care Provider] - Follow up/PCP as directed
[2023-01-05] MEDS ORDERED: Sodium Chloride 0.9% 1000 ML 1,000 ML IV SCH (19:30)
[2023-01-05] MEDS ORDERED: TYLENOL 325 MG PO PRN (21:33)
[2023-01-05] MEDS ORDERED: Dulcolax 10 MG SUPP RC PRN (21:33)
[2023-01-05] MEDS ORDERED: Senokot-S Tablet PO PRN (21:33)
[2023-01-05] MEDS ORDERED: Tessalon Perles 100 MG PO PRN (21:33)
[2023-01-05] MEDS ORDERED: Zofran 4 MG/2 ML VIAL IV PRN (21:34)
--- NOTE | 2023-01-05 21:49 | PCM.HP ---
History of Present Illness - Chief Complaint Chief Complaint: GI bleed Date: 01/05/23 History of Present Illness: is a 72 year old female who presented to the hospital from a SNF with a report of rectal bleeding. The patient is a poor historian and is unable to offer much meaningful history. She is legally blind and confirms the report of rectal bleeding, but in the ED she was noted to have melena. The patient does have a history of hemorrhoids and a questionable history of liver disease (cirrhosis). No nausea, vomiting, or abdominal pain is noted. She does not report any dizziness or chest pain or shortness of breath. - Review of Systems Constitutional: No Symptoms Eyes: No Symptoms Ears, Nose, & Throat: No Symptoms Respiratory: No Symptoms Cardiac: No Symptoms Abdominal/Gastrointestinal: Melena Genitourinary Symptoms: No Symptoms Musculoskeletal: No Symptoms Skin: No Symptoms Neurological: No Symptoms Psychological: No Symptoms Endocrine: No Symptoms Hematologic/Lymphatic: No Symptoms Immunological/Allergic: No Symptoms All Other Systems: Reviewed and Negative Medications & Allergies Home Medications: Home Medication List Latanoprost [Xalatan] 1 drops OP HS 06/19/12 [History Confirmed 01/05/23] Benzonatate [Tessalon Perle] 100 mg PO Q8HPRN PRN 07/20/19 [History Confirmed 01/05/23] Ferrous Sulfate 325 mg [Feosol 325 mg] 325 mg PO BID 07/20/19 [History Confirmed 01/05/23] Ondansetron ODT 4 MG [Zofran Odt 4 mg] 4 mg PO Q4H PRN PRN 07/20/19 [History Confirmed 01/05/23] Sennosides/Docusate Sodium [Senna-S Tablet] 8.6 mg PO DAILY PRN 07/20/19 [History Confirmed 01/05/23] Potassium Chloride 20 meq PO DAILY 05/09/21 [History Confirmed 01/05/23] Calcium Carb, Citrate/Vit D3 [Calcium + D3 ER Tablet] 1 each PO BID 05/10/21 [History Confirmed 01/05/23] Docusate Sodium [Colace] 100 mg PO BID 05/10/21 [History Confirmed 01/05/23] Acetaminophen 325 mg [Tylenol 325 mg] 2 tab PO Q6H PRN PRN 08/09/22 [History Confirmed 01/05/23] Fluticasone/Vilanterol [Breo Ellipta 100-25 Mcg INH] 1 puff PO DAILY 08/09/22 [History Confirmed 01/05/23] Bisacodyl 10 mg [Dulcolax 10 MG SUPP] 10 mg RC DAILY PRN 01/05/23 [History Confirmed 01/05/23] Cetirizine HCl [Zyrtec] 10 mg PO DAILY 01/05/23 [History Confirmed 01/05/23] Allergies/Adverse Reactions: Allergies Allergy/AdvReac Type Severity Reaction Status Date / Time Sulfa (Sulfonamide Allergy Intermediate Verified 01/05/23 14:34 Antibiotics) amoxicillin [Amoxicillin] Allergy Mild Verified 01/05/23 14:34 Cephalosporins Allergy Unknown Verified 01/05/23 14:34 - Past Medical History Past Medical History: Yes Neurological History: No Pertinent History ENT History: Glaucoma, Other Cardiac History: Hypertension Respiratory History: No Pertinent History Endocrine Medical History: No Pertinent History Musculoskelatal History: Fractures, Arthritis GI Medical History: Cirrhosis, GERD History: No Pertinent History Pyscho-Social History: Anxiety, Depression Reproductive Disorders: Breast Cancer Comment: blind since from cataracts, left hip fracture, anemia, hypokalem ia, overactive bladder, dysphagia, thinitis, UTI, covid-19 - Past Surgical History Past Surgical History: Yes Neuro Surgical History: No Pertinent History Cardiac History: No Pertinent History Respiratory Surgery: No Pertinent History GI Surgical History: No Pertinent History Genitourinary Surgical Hx: No Pertinent History Musculskeletal Surgical Hx: No Pertinent History Female Surgical History: Mastectomy, Lumpectomy Other Surgical History: left breast mastectomy,cvl port placed.,rufus eye surgeries. lt hip surgery- fx - Social History Smoking Status: Unknown if ever smoked Exposure to second hand smoke: No Alcohol: None Drug Use: none - Physical Exam Vital Signs: Vital Signs - 24 hr Temp Pulse Resp BP BP Pulse Ox 01/05/23 19:24 95 01/05/23 19:00 86 16 132/85 99 01/05/23 18:30 125/79 99 01/05/23 18:00 68 18 115/88 97 01/05/23 17:30 146/105 97 01/05/23 17:00 129/85 95 01/05/23 16:30 118/83 95 01/05/23 16:22 128/87 95 01/05/23 16:01 70 18 143/116 92 L 01/05/23 15:00 63 16 122/74 98 01/05/23 14:29 97.2 F 89 18 135/98 99 01/05/23 14:24 16 135/98 96 General Appearance: no apparent distress, alert Neurologic Exam: alert, oriented x 3, cooperative, waterproof bag sewer II-XII nml as tested, normal mood/affect, nml cerebellar function Eye Exam: eyes nml inspection Ears, Nose, Throat Exam: normal ENT inspection Neck Exam: normal inspection, non-tender, supple, full range of motion Respiratory Exam: normal breath sounds, lungs clear Cardiovascular Exam: regular rate/rhythm, normal heart sounds Gastrointestinal/Abdomen Exam: soft, normal bowel sounds, other (nontender, no peritoneal signs or rigidity) Back Exam: normal range of motion Extremity Exam: normal inspection, normal range of motion Skin Exam: normal color Results - Labs Lab/Micro Results: Lab Results-Last 24 Hours 01/05/23 01/05/23 01/05/23 Range/Units 14:20 14:47 14:47 WBC 8.1 (4.0-10.5) x10^3/uL RBC 3.75 L (4.1-5.4) x10^6/uL Hgb 12.7 (12.0-16.0) g/dL Hct 39.3 (35-47) % MCV 104.8 H (78-100) fL MCH 33.9 H (26-32) pg MCHC 32.3 (32-36) g/dL RDW 13.9 (11.5-14.0) % Plt Count 135 L (150-450) x10^3/uL MPV 9.4 (7.5-11.0) fL Gran % 73.3 H (36.0-66.0) % Immature Gran % (Auto) 1.0 H (0.00-0.4) % Nucleat RBC Rel Count 0.0 (0.00-0.1) % Eos # (Auto) 0.30 (0-0.5) x10^3/uL Immature Gran # (Auto) 0.08 H (0.00-0.03) x10^3u/L Absolute Lymphs (auto) 0.99 L (1.0-4.6) x10^3/uL Absolute Monos (auto) 0.70 (0.0-1.3) x10^3/uL Absolute Nucleated RBC 0.00 (0.00-0.01) x10^3u/L Lymphocytes % 12.3 L (24.0-44.0) % Monocytes % 8.7 (0.0-12.0) % Eosinophils % 3.7 (0.00-5.0) % Basophils % 1.0 (0.0-0.4) % Absolute Granulocytes 5.92 (1.4-6.9) x10^3/uL Basophils # 0.08 (0-0.4) x10^3/uL PT 10.6 (9.4-12.5) SECONDS INR 0.97 (0.8-3.0) APTT 25.3 (25.1-36.5) SECONDS Sodium (137-145) mmol/L Potassium (3.5-5.1) mmol/L Chloride (98-107) mmol/L Carbon Dioxide (22-30) mmol/L Anion Gap (5-15) MEQ/L BUN (7-17) mg/dL Creatinine (0.52-1.04) mg/dL Estimated GFR ML/MIN Glucose (74-106) mg/dL Lactic Acid 1.1 (0.4-2.0) Calcium (8.4-10.2) mg/dL Total Bilirubin (0.2-1.3) mg/dL AST (14-36) U/L ALT (0-35) U/L Alkaline Phosphatase (38-126) U/L Serum Total Protein (6.3-8.2) g/dL Albumin (3.5-5.0) g/dL Stl Occult Blood (IFOB) (NEGATIVE) ABO Group Rh Factor Antibody Screen (NEGATIVE) 01/05/23 01/05/23 01/05/23 Range/Units 14:47 14:47 15:49 WBC (4.0-10.5) x10^3/uL RBC (4.1-5.4) x10^6/uL Hgb (12.0-16.0) g/dL Hct (35-47) % MCV (78-100) fL MCH (26-32) pg MCHC (32-36) g/dL RDW (11.5-14.0) % Plt Count (150-450) x10^3/uL MPV (7.5-11.0) fL Gran % (36.0-66.0) % Immature Gran % (Auto) (0.00-0.4) % Nucleat RBC Rel Count (0.00-0.1) % Eos # (Auto) (0-0.5) x10^3/uL Immature Gran # (Auto) (0.00-0.03) x10^3u/L Absolute Lymphs (auto) (1.0-4.6) x10^3/uL Absolute Monos (auto) (0.0-1.3) x10^3/uL Absolute Nucleated RBC (0.00-0.01) x10^3u/L Lymphocytes % (24.0-44.0) % Monocytes % (0.0-12.0) % Eosinophils % (0.00-5.0) % Basophils % (0.0-0.4) % Absolute Granulocytes (1.4-6.9) x10^3/uL Basophils # (0-0.4) x10^3/uL PT (9.4-12.5) SECONDS INR (0.8-3.0) APTT (25.1-36.5) SECONDS Sodium 143 (137-145) mmol/L Potassium 4.2 (3.5-5.1) mmol/L Chloride 107 (98-107) mmol/L Carbon Dioxide 27 (22-30) mmol/L Anion Gap 13.4 (5-15) MEQ/L BUN 27 H (7-17) mg/dL Creatinine 1.23 H (0.52-1.04) mg/dL Estimated GFR 45.6 ML/MIN Glucose 97 (74-106) mg/dL Lactic Acid (0.4-2.0) Calcium 9.7 (8.4-10.2) mg/dL Total Bilirubin 0.80 (0.2-1.3) mg/dL AST 50 H (14-36) U/L ALT 34 (0-35) U/L Alkaline Phosphatase 189 H (38-126) U/L Serum Total Protein 7.9 (6.3-8.2) g/dL Albumin 3.9 (3.5-5.0) g/dL Stl Occult Blood (IFOB) POSITIVE A (NEGATIVE) ABO Group O Rh Factor POSITIVE Antibody Screen NEGATIVE (NEGATIVE) Assessment/Plan (1) GI bleed Current Visit: Yes Status: Acute Assessment & Plan: IV PPI, monitor h&h. Patient has a documented history of cirrhosis and esophageal varices. Per ED, plan tentatively will be for endoscopy on Tuesday by Dr. Hernandez, but will keep NPO overnight to determine if endoscopy is needed sooner. Code(s): K92.2 - GASTROINTESTINAL HEMORRHAGE, UNSPECIFIED (2) Anemia Current Visit: Yes Status: Acute Assessment & Plan: Monitor counts. Hold iron for now with planned endoscopy. Check B12 and Folate. Code(s): D64.9 - ANEMIA, UNSPECIFIED (3) COPD (chronic obstructive pulmonary disease) Current Visit: No Status: Acute Assessment & Plan: No active wheezing. Placed on 2L oxygen on arrival with stable saturations. Telemedicine Encounter - Telemedicine Encounter Telemedicine Encounter: The entirety of this encounter was performed via Telemedicine"
[2023-01-05] MEDS ORDERED: NON-FORMULARY ITEM (Calcium Carb, Citrate/Vit D3 [Calcium + D3 Er Tablet] 1 EACH Tablet.Er PO SCH (22:00)
[2023-01-06] MEDS ORDERED: Calcium 500MG W/Vit D Tablet ONE (01:18)
[2023-01-06] MEDS ORDERED: Sodium Chloride 0.9% 500 ML 500 ML IV ONE (01:20)
[2023-01-06] MEDS ORDERED: PROTONIX 40 MG IV IV ONE (01:20)
[2023-01-06] MEDS: PROTONIX 40 MG IV*** 80 MG in Sodium Chloride 0.9% 500 ML 500 ML IV SCH ×3 (02:17→20:54)
[2023-01-06] MEDS: Docusate Sodium 100 MG PO SCH ×3 (02:19→21:45)
[2023-01-06 04:56] LABS: Hematocrit 35.6 % (35-47); Hemoglobin 11.6 g/dL (12.0-16.0); Mean Cell Volume 102.9 fL (78-100); Mean Corpuscular Hemoglobin 33.5 pg (26-32); Mean Corpuscular Hgb Concent. 32.6 g/dL (32-36); Mean Platelet Volume 9.7 fL (7.5-11.0); Platelet Count 108 x10^3/uL (150-450); Red Blood Count 3.46 x10^6/uL (4.1-5.4); Red Cell Distribution Width 14.1 % (11.5-14.0); White Blood Count 6.9 x10^3/uL (4.0-10.5)
[2023-01-06 05:29] LABS: ALBUMIN 3.5 g/dL (3.5-5.0); ANION GAP 12.3 MEQ/L (5-15); Calcium 8.6 mg/dL (8.4-10.2); Creatinine 1 1.07 mg/dL (0.52-1.04); EST GLOMERULAR FILTRATION RATE 53.6 ML/MIN; Potassium 4.2 mmol/L (3.5-5.1); Total Protein 7.1 g/dL (6.3-8.2)
[2023-01-06] MEDS: Xalatan OP SCH ×2 (07:21→21:46)
[2023-01-06] MEDS: Sodium Chloride 0.9% 1000 ML 1,000 ML IV SCH (07:25)
[2023-01-06] MEDS: Advair Hfa 115/21 Common canister IH SCH ×2 (07:29→18:31)
--- NOTE | 2023-01-06 08:48 | XRAY ---
Indication: Hypoxia. COPD. Comparison: August 10, 2022 Portable chest again rotated and slightly underinflated. Lungs are now clear. Heart not enlarged again with right Port-A-Cath. Bony thorax intact. No new/acute cardiopulmonary abnormalities.
[2023-01-06] MEDS: Calcium 500MG W/Vit D Tablet PO SCH ×2 (09:22→21:45)
[2023-01-06] MEDS: Klor Con PO SCH (09:22)
[2023-01-06] MEDS: CLARITIN 10 MG PO SCH (09:23)
[2023-01-06] MEDS ORDERED: NON-FORMULARY ITEM (Potassium Chloride [Potassium Chloride] 20 MEQ Tab.Er.Prt) PO SCH (10:00)
[2023-01-06] MEDS ORDERED: NON-FORMULARY ITEM (Cetirizine Hcl [Zyrtec] 10 MG Tablet) PO SCH (10:00)
[2023-01-06] MEDS ORDERED: NON-FORMULARY ITEM (Fluticasone/Vilanterol [Breo Ellipta 100-25 Mcg Inh] 1 EACH Blst.W.Dev PO SCH (10:00)
[2023-01-06] MEDS ORDERED: PROTONIX 40 MG IV IV SCH (10:00)
[2023-01-06 10:13] LABS: Appearance Turbid (Clear); Bacteria Many /HPF (None Seen); Bilirubin Negative (Negative); Blood Small (Negative); Epithelial Cells Few /HPF (None Seen); Glucose, Urine Negative (Negative); Ketones Negative (Negative); Leukocyte Esterase Large (Negative); Nitrite Negative (Negative); Ph 7.5 (4.6-8.0); Protein,Urine Dip 30 (Negative); Specific Gravity 1.015 (1.005-1.030); Urobilinogen 0.2 mg/dL (0.2); WBC >100 /HPF (0-5)
[2023-01-06 10:14] LABS: ADD URINE CULTURE? NO (NO)
[2023-01-06] MEDS ORDERED: Macrobid 100MG Capsule PO ONE (11:17)
[2023-01-06] MEDS ORDERED: Golytely Solution 4000 ML PO ONE (14:00)
--- NOTE | 2023-01-06 16:33 | PCM.NOTE ---
Date and Time: 01/06/231627 Subjective Assessment: is a 72 year old female who presented to the hospital from a SNF 01/05/23 with a reports of rectal bleeding. The patient is a poor historian and is unable to offer much meaningful history. She is legally blind and confirms the report of rectal bleeding, but in the ED she was noted to have melena. The patient does have a history of hemorrhoids and a questionable history of liver disease (cirrhosis). During today's interview patient states that she has been having some loose stool but unable to determine frequency or last bowel movement. She is unsure today whether or not she has had dark or bloody stool. Denies shortness of breath, cp, nausea, vomiting, or dysuria. - Review of Systems Constitutional: No Symptoms Eyes: Tearing (right eye), Other (legally blind) Ears, Nose, & Throat: No Symptoms Respiratory: No Symptoms Cardiac: No Symptoms Abdominal/Gastrointestinal: Other (loose stool) Genitourinary Symptoms: No Symptoms Skin: No Symptoms Neurological: No Symptoms Objective Exam General Appearance: no apparent distress Neurologic Exam: alert, cooperative, other (poor historian, unable to recall recent events) Skin Exam: pale Wound Assessment: Skin/Wound Assessment Wound/Incision Assessment Start: 01/05/23 22:15 Text: Status: Active Freq: Protocol: Document 01/06/23 03:11 MP (Rec: 01/06/23 03:13 MP [id number]) Wound Photo Photo Taken No Comment: no wounds noted Ears, Nose, Throat Exam: dry mucous membranes Respiratory Exam: normal breath sounds Cardiovascular Exam: regular rate/rhythm, normal heart sounds Gastrointestinal/Abdomen Exam: soft, normal bowel sounds Extremity Exam: normal inspection OBJECTIVE DATA Vital Signs: Vital Signs - 24 hr Temp Pulse Resp BP BP Pulse Ox 01/06/23 11:42 96.2 F 75 16 112/55 94 L 01/06/23 07:40 97.6 F 74 16 130/75 90 L 01/06/23 07:31 74 16 92 L 01/06/23 06:51 92 L 01/06/23 04:00 74 18 119/60 94 L 01/05/23 23:48 97.9 F 82 123/69 96 01/05/23 23:05 96 01/05/23 21:37 97.9 F 82 18 123/69 91 L 08/09/23 19:24 95 01/05/23 19:00 86 16 132/85 99 01/05/23 18:30 125/79 99 01/05/23 18:00 68 18 115/88 97 01/05/23 17:30 146/105 97 01/05/23 17:00 129/85 95 01/05/23 16:30 118/83 95 Pain Assessment - Last Documented Pain Intensity 0 Intake and Output: Intake & Output 01/04/23 01/05/23 01/06/23 01/07/23 11:59 11:59 11:59 11:59 Intake Total 50 540 Balance 50 540 Weight 73.9 kg Lab Results: Lab Results-Last 24 Hours 01/05/23 01/05/23 01/06/23 Range/Units 18:27 23:53 04:34 WBC 6.9 (4.0-10.5) x10^3/uL RBC 3.46 L (4.1-5.4) x10^6/uL Hgb 11.3 L 11.6 L (12.0-16.0) g/dL Hct 35.6 (35-47) % MCV 102.9 H (78-100) fL MCH 33.5 H (26-32) pg MCHC 32.6 (32-36) g/dL RDW 14.1 H (11.5-14.0) % Plt Count 108 L (150-450) x10^3/uL MPV 9.7 (7.5-11.0) fL Sodium (137-145) mmol/L Potassium (3.5-5.1) mmol/L Chloride (98-107) mmol/L Carbon Dioxide (22-30) mmol/L Anion Gap (5-15) MEQ/L BUN (7-17) mg/dL Creatinine (0.52-1.04) mg/dL Estimated GFR ML/MIN Glucose (74-106) mg/dL Calcium (8.4-10.2) mg/dL Total Bilirubin (0.2-1.3) mg/dL AST (14-36) U/L ALT (0-35) U/L Alkaline Phosphatase (38-126) U/L Serum Total Protein (6.3-8.2) g/dL Albumin (3.5-5.0) g/dL Vitamin B12 (239-931) pg/mL Folic Acid (2.76 - >20) ng/mL Urine Color Yellow (Yellow) Urine Appearance Turbid A (Clear) Urine pH 7.5 (4.6-8.0) Ur Specific [place] 1.015 (1.005-1.030) Urine Protein 30 (Negative) Urine Glucose (UA) Negative (Negative) mg/dL Urine Ketones Negative (Negative) Urine Blood Small A (Negative) Urine Nitrite Negative (Negative) Urine Bilirubin Negative (Negative) Urine Urobilinogen 0.2 (0.2) mg/dL Ur Leukocyte Esterase Large A (Negative) U Hyaline Cast (Auto) 3-5 A (0-2) /LPF Urine Microscopic RBC 11-20 A (0-5) /HPF Urine Microscopic WBC >100 A (0-5) /HPF Ur Epithelial Cells Few (None Seen) /HPF Urine Bacteria Many A (None Seen) /HPF Urine Yeast (Budding) (None Seen) /HPF Urine Culture Reflexed NO (NO) 01/06/23 01/06/23 Range/Units 04:34 04:34 WBC (4.0-10.5) x10^3/uL RBC (4.1-5.4) x10^6/uL Hgb (12.0-16.0) g/dL Hct (35-47) % MCV (78-100) fL MCH (26-32) pg MCHC (32-36) g/dL RDW (11.5-14.0) % Plt Count (150-450) x10^3/uL MPV (7.5-11.0) fL Sodium 139 (137-145) mmol/L Potassium 4.2 (3.5-5.1) mmol/L Chloride 109 H (98-107) mmol/L Carbon Dioxide 23 (22-30) mmol/L Anion Gap 12.3 (5-15) MEQ/L BUN 24 H (7-17) mg/dL Creatinine 1.07 H (0.52-1.04) mg/dL Estimated GFR 53.6 ML/MIN Glucose 106 (74-106) mg/dL Calcium 8.6 (8.4-10.2) mg/dL Total Bilirubin 1.00 (0.2-1.3) mg/dL AST 40 H (14-36) U/L ALT 29 (0-35) U/L Alkaline Phosphatase 167 H (38-126) U/L Serum Total Protein 7.1 (6.3-8.2) g/dL Albumin 3.5 (3.5-5.0) g/dL Vitamin B12 387 (239-931) pg/mL Folic Acid 11.1 (2.76 - >20) ng/mL Urine Color (Yellow) Urine Appearance (Clear) Urine pH (4.6-8.0) Ur Specific [place] (1.005-1.030) Urine Protein (Negative) Urine Glucose (UA) (Negative) mg/dL Urine Ketones (Negative) Urine Blood (Negative) Urine Nitrite (Negative) Urine Bilirubin (Negative) Urine Urobilinogen (0.2) mg/dL Ur Leukocyte Esterase (Negative) U Hyaline Cast (Auto) (0-2) /LPF Urine Microscopic RBC (0-5) /HPF Urine Microscopic WBC (0-5) /HPF Ur Epithelial Cells (None Seen) /HPF Urine Bacteria (None Seen) /HPF Urine Yeast (Budding) (None Seen) /HPF Urine Culture Reflexed (NO) Radiology Exams: Radiology Procedures Category Date Time Status CHEST 1 VIEW (PORTABLE) Routine Exams 01/05/23 23:15 Completed Multi-Disciplinary Progress Notes: Multi-Disciplinary Progress Notes 01/06/23 12:44 Case Management Note by Jeaneth Kulkarni S/Marin SAEZDENNISE AT [facility]- NO PRECERT REQUIRED FOR PATIENT TO RETURN. PATIENT CAN RETURN TO THEIR FACILITY AT ANY TIME WHEN MEDICALLY READY Initialized on 01/06/23 12:44 - END OF NOTE 01/06/23 10:38 Physical Therapy Note by Long(L#[id number])Sharonda P.T. ORDER CANCELLED PT. IS [facility] IN SNF. NO SKILLED INTERVENTION WARRANTED AT THIS TIME. Initialized on 01/06/23 10:38 - END OF NOTE Assessment/Plan (1) GI bleed Current Visit: Yes Status: Acute Assessment & Plan: -occult stool positive, plan for prep tonight with scopes 01/07/23 -Hgb stable at 11.6, continue to monitor and replace as appropriate -pt/inr 0.97 -Avoid NSAIDS/ASA Code(s): K92.2 - GASTROINTESTINAL HEMORRHAGE, UNSPECIFIED (2) Anemia Current Visit: Yes Status: Acute Assessment & Plan: -Hgb stable at 11.6, will continue to monitor and replace if hgb < 7 -iron studies, b12/fol, ferritin Code(s): D64.9 - ANEMIA, UNSPECIFIED (3) UTI (urinary tract infection) Current Visit: Yes Status: Acute Assessment & Plan: -U cult growing gram negative organism, will start patient on Macrobid due to multiple allergies, follow culture Code(s): N39.0 - URINARY TRACT INFECTION, SITE NOT SPECIFIED (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
[2023-01-06] MEDS ORDERED: Macrobid 100MG Capsule PO SCH (17:00)
[2023-01-07] MEDS ORDERED: Sodium Chloride 0.9% 1000 ML 1,000 ML IV SCH
[2023-01-07] MEDS: Advair Hfa 115/21 Common canister IH SCH ×2 (07:16→19:11)
[2023-01-07 07:56] LABS: Hematocrit 32.6 % (35-47); Hemoglobin 10.4 g/dL (12.0-16.0); Mean Cell Volume 108.3 fL (78-100); Mean Corpuscular Hemoglobin 34.6 pg (26-32); Mean Corpuscular Hgb Concent. 31.9 g/dL (32-36); Mean Platelet Volume 9.4 fL (7.5-11.0); Platelet Count 110 x10^3/uL (150-450); Red Blood Count 3.01 x10^6/uL (4.1-5.4); Red Cell Distribution Width 13.8 % (11.5-14.0); White Blood Count 7.1 x10^3/uL (4.0-10.5)
[2023-01-07] MEDS: PROTONIX 40 MG IV*** 80 MG in Sodium Chloride 0.9% 500 ML 500 ML IV SCH (08:45)
[2023-01-07 09:30] LABS: ALBUMIN 3.4 g/dL (3.5-5.0); ANION GAP 14.3 MEQ/L (5-15); BILIRUBIN,TOTAL 1.2 mg/dL (0.2-1.3); Calcium 7.8 mg/dL (8.4-10.2); Creatinine 1 1.06 mg/dL (0.52-1.04); EST GLOMERULAR FILTRATION RATE 54.2 ML/MIN; Potassium 3.5 mmol/L (3.5-5.1); Total Protein 6.9 g/dL (6.3-8.2)
[2023-01-07] MEDS: Calcium 500MG W/Vit D Tablet PO SCH (09:50)
[2023-01-07] MEDS: CLARITIN 10 MG PO SCH (09:51)
[2023-01-07] MEDS: Docusate Sodium 100 MG PO SCH (09:51)
[2023-01-07] MEDS: Klor Con PO SCH (09:51)
[2023-01-07] MEDS ORDERED: LEVOFLOXACIN 750MG/150ML D5W 750 MG/150 ML BAG IV SCH (10:00)
[2023-01-07] MEDS ORDERED: Levofloxacin 500MG/100ML D5W 500 MG/100 ML BAG IV SCH (10:00)
--- NOTE | 2023-01-07 13:14 | PCM.NOTE ---
Date and Time: 01/07/23 1311 Subjective Assessment: is a 72 year old female who presented to the hospital from a SNF 01/05/23 with a reports of rectal bleeding. The patient is a poor historian and is unable to offer much meaningful history. She is legally blind and confirms the report of rectal bleeding, but in the ED she was noted to have melena. The patient does have a history of hemorrhoids and a questionable history of liver disease (cirrhosis). Hemoglobin fairly stable here at around 10.4. Had some mild MARILYN on arrival, but creatinine anow at 1.06. Patient remains fairly confused. Patient prepped and ready for scopes today. Endorses some shortness of breath and a mildly productive cough. Discussed with patient urine culture result showing klebsiella pneumoniae, will change antibiotic to levaquin IV today due to NPO status followed by oral. - Review of Systems Constitutional: No Symptoms Eyes: No Symptoms Ears, Nose, & Throat: No Symptoms Respiratory: Cough, Short Of Breath Cardiac: No Symptoms Abdominal/Gastrointestinal: Hematochezia Genitourinary Symptoms: No Symptoms Musculoskeletal: No Symptoms Skin: No Symptoms Hematologic/Lymphatic: No Symptoms Immunological/Allergic: No Symptoms Objective Exam General Appearance: no apparent distress Neurologic Exam: alert, oriented x 3, cooperative Skin Exam: pale Wound Assessment: Skin/Wound Assessment Wound/Incision Assessment Start: 01/05/23 22:15 Text: Status: Active Freq: Protocol: Document 01/06/23 03:11 MP (Rec: 01/06/23 03:13 MP [id number]) Wound Photo Photo Taken No Comment: no wounds noted Ears, Nose, Throat Exam: dry mucous membranes Respiratory Exam: normal breath sounds, lungs clear Cardiovascular Exam: regular rate/rhythm, normal heart sounds Gastrointestinal/Abdomen Exam: soft, normal bowel sounds Extremity Exam: normal inspection OBJECTIVE DATA Vital Signs: Vital Signs - 24 hr Temp Pulse Resp BP Pulse Ox 01/07/23 11:57 98.4 F 83 18 95 01/07/23 07:25 98.0 F 90 18 125/59 92 L 01/07/23 07:18 84 14 93 L 01/07/23 03:57 99.9 F 103 H 18 128/66 92 L 01/07/23 00:00 98.1 F 90 16 136/73 98 01/06/23 20:00 97.9 F 82 17 114/59 91 L 01/06/23 18:32 82 16 97 01/06/23 16:00 97.5 F 79 18 142/73 92 L Pain Assessment - Last Documented Pain Intensity 0 Intake and Output: Intake & Output 01/05/23 01/06/23 01/07/23 01/08/23 11:59 11:59 11:59 11:59 Intake Total 50 1475 100 Balance 50 1475 100 Weight 73.9 kg Lab Results: Lab Results-Last 24 Hours 01/06/23 01/06/23 01/06/23 Range/Units 04:00 04:00 04:34 WBC (4.0-10.5) x10^3/uL RBC (4.1-5.4) x10^6/uL Hgb (12.0-16.0) g/dL Hct (35-47) % MCV (78-100) fL MCH (26-32) pg MCHC (32-36) g/dL RDW (11.5-14.0) % Plt Count (150-450) x10^3/uL MPV (7.5-11.0) fL Sodium (137-145) mmol/L Potassium (3.5-5.1) mmol/L Chloride (98-107) mmol/L Carbon Dioxide (22-30) mmol/L Anion Gap (5-15) MEQ/L BUN (7-17) mg/dL Creatinine (0.52-1.04) mg/dL Estimated GFR ML/MIN Glucose (74-106) mg/dL Calcium (8.4-10.2) mg/dL Iron 50 (37-170) ug/dL Ferritin 506 H (11.1-264) ng/mL Total Bilirubin (0.2-1.3) mg/dL AST (14-36) U/L ALT (0-35) U/L Alkaline Phosphatase (38-126) U/L Serum Total Protein (6.3-8.2) g/dL Albumin (3.5-5.0) g/dL Folic Acid Cancelled 01/07/23 01/07/23 Range/Units 07:40 07:40 WBC 7.1 (4.0-10.5) x10^3/uL RBC 3.01 L (4.1-5.4) x10^6/uL Hgb 10.4 L (12.0-16.0) g/dL Hct 32.6 L (35-47) % MCV 108.3 H (78-100) fL MCH 34.6 H (26-32) pg MCHC 31.9 L (32-36) g/dL RDW 13.8 (11.5-14.0) % Plt Count 110 L (150-450) x10^3/uL MPV 9.4 (7.5-11.0) fL Sodium 137 (137-145) mmol/L Potassium 3.5 (3.5-5.1) mmol/L Chloride 108 H (98-107) mmol/L Carbon Dioxide 18 L (22-30) mmol/L Anion Gap 14.3 (5-15) MEQ/L BUN 18 H (7-17) mg/dL Creatinine 1.06 H (0.52-1.04) mg/dL Estimated GFR 54.2 ML/MIN Glucose 110 H (74-106) mg/dL Calcium 7.8 L (8.4-10.2) mg/dL Iron (37-170) ug/dL Ferritin (11.1-264) ng/mL Total Bilirubin 1.20 (0.2-1.3) mg/dL AST 48 H (14-36) U/L ALT 30 (0-35) U/L Alkaline Phosphatase 171 H (38-126) U/L Serum Total Protein 6.9 (6.3-8.2) g/dL Albumin 3.4 L (3.5-5.0) g/dL Folic Acid Radiology Exams: Radiology Procedures Category Date Time Status CHEST 1 VIEW (PORTABLE) Routine Exams 01/05/23 23:15 Completed Multi-Disciplinary Progress Notes: Multi-Disciplinary Progress Notes 01/07/23 10:40 Case Management Note by Jeaneth Kulkarni NO CHANGE IN DC PLANS AT THIS TIME- PATIENT TO RETURN TO [facility] AT TIME OF DC. CLINICAL UPDATES FAXED TO [facility] AT THIS TIME Initialized on 01/07/23 10:40 - END OF NOTE Assessment/Plan (1) GI bleed Current Visit: Yes Status: Acute Assessment & Plan: -occult stool positive, plan for scopes today -Hgb stable at 10.4, continue to monitor and replace as appropriate -pt/inr 0.97 -Avoid NSAIDS/ASA Code(s): K92.2 - GASTROINTESTINAL HEMORRHAGE, UNSPECIFIED (2) Anemia Current Visit: Yes Status: Acute Assessment & Plan: -Hgb stable at 10.4, will continue to monitor and replace if hgb < 7 Code(s): D64.9 - ANEMIA, UNSPECIFIED (3) UTI (urinary tract infection) Current Visit: Yes Status: Acute Assessment & Plan: -Ucult positive for Klebsiella, will change antibiotic to levaquin IV today due to npo status,followed by four more days of oral Code(s): N39.0 - URINARY TRACT INFECTION, SITE NOT SPECIFIED (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
[2023-01-07] MEDS ORDERED: Xylocaine-Mpf 2% 5 Ml Vial ONE (15:48)
[2023-01-07] MEDS ORDERED: DIPRIVAN 200 MG/20 ML IV ONE ×2 (15:48→16:43)
[2023-01-07] MEDS ORDERED: Lactated Ringers 1,000 ML IV ONE (16:37)
[2023-01-07] MEDS ORDERED: GlucaGen 1 MG ONE (16:42)
[2023-01-07 17:35] VITALS: BP 122/63; TEMP 97
--- NOTE | 2023-01-07 18:12 | PCM.DS ---
Discharge Summary Date of Admission: 01/05/23 21:09 Admitting Physician: CLAIRE PINEDA MD Consults: Consults on Case 01/05/23 21:40 Consult Surgery ROUTINE Primary Care Provider: ENVIVE Allergies Allergies Sulfa (Sulfonamide Antibiotics) Allergy (Intermediate, Verified 01/05/23 14:34) amoxicillin [Amoxicillin] Allergy (Mild, Verified 01/05/23 14:34) Cephalosporins Allergy (Unknown, Verified 01/05/23 14:34) THIS ALLERGY ADDED PER [facility] NURSE Hospital Summary - Hospital Course Hospital Course: 72-year-old woman with a history of cirrhosis, here with melena. Hemoglobin has remained fairly stable although is continuing to trend downward. Her mild MARILYN on arrival is improved. She also has an ESBL Klebsiella acute cystitis, sensitive to Levaquin. Underwent colonoscopy and EGD surgery today, per RN report abnormal colonoscopy with abnormal findings, biopsy obtained, AVM clipped . Patient will follow-up outpatient with surgery's findings and recommendations next week. Patient placed on Levaquin for her acute cystitis. (1) GI bleed Current Visit: Yes Status: Acute Assessment & Plan: -occult stool positive, plan for scopes today -Hgb stable at 10.4, continue to monitor and replace as appropriate -pt/inr 0.97 -Avoid NSAIDS/ASA Code(s): K92.2 - GASTROINTESTINAL HEMORRHAGE, UNSPECIFIED (2) Anemia Current Visit: Yes Status: Acute Assessment & Plan: -Hgb stable at 10.4, will continue to monitor and replace if hgb < 7 Code(s): D64.9 - ANEMIA, UNSPECIFIED (3) UTI (urinary tract infection) Current Visit: Yes Status: Acute Assessment & Plan: -Ucult positive for Klebsiella, will change antibiotic to levaquin IV today due to npo status,followed by four more days of oral Code(s): N39.0 - URINARY TRACT INFECTION, SITE NOT SPECIFIED (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 - Vitals & Intake/Output Vital Signs: Vital Signs Temperature 97.0 F 01/07/23 17:33 Pulse Rate 70 01/07/23 17:33 Respiratory Rate 17 01/07/23 17:33 Blood Pressure 122/63 01/07/23 17:33 O2 Sat by Pulse Oximetry 92 L 01/07/23 17:33 Intake & Output: Intake & Output 01/05/23 01/06/23 01/07/23 01/08/23 11:59 11:59 11:59 11:59 Intake Total 50 1475 100 Balance 50 1475 100 Weight 73.9 kg 73.9 kg - Lab Result Diagrams: 01/07/23 07:40 01/07/23 07:40 Lab Results-Last 24 Hrs: Lab Results-Last 24 Hours 01/06/23 01/06/23 01/06/23 Range/Units 04:00 04:00 04:34 WBC (4.0-10.5) x10^3/uL RBC (4.1-5.4) x10^6/uL Hgb (12.0-16.0) g/dL Hct (35-47) % MCV (78-100) fL MCH (26-32) pg MCHC (32-36) g/dL RDW (11.5-14.0) % Plt Count (150-450) x10^3/uL MPV (7.5-11.0) fL Sodium (137-145) mmol/L Potassium (3.5-5.1) mmol/L Chloride (98-107) mmol/L Carbon Dioxide (22-30) mmol/L Anion Gap (5-15) MEQ/L BUN (7-17) mg/dL Creatinine (0.52-1.04) mg/dL Estimated GFR ML/MIN Glucose (74-106) mg/dL Calcium (8.4-10.2) mg/dL Iron 50 (37-170) ug/dL Ferritin 506 H (11.1-264) ng/mL Total Bilirubin (0.2-1.3) mg/dL AST (14-36) U/L ALT (0-35) U/L Alkaline Phosphatase (38-126) U/L Serum Total Protein (6.3-8.2) g/dL Albumin (3.5-5.0) g/dL Folic Acid Cancelled 01/07/23 01/07/23 Range/Units 07:40 07:40 WBC 7.1 (4.0-10.5) x10^3/uL RBC 3.01 L (4.1-5.4) x10^6/uL Hgb 10.4 L (12.0-16.0) g/dL Hct 32.6 L (35-47) % MCV 108.3 H (78-100) fL MCH 34.6 H (26-32) pg MCHC 31.9 L (32-36) g/dL RDW 13.8 (11.5-14.0) % Plt Count 110 L (150-450) x10^3/uL MPV 9.4 (7.5-11.0) fL Sodium 137 (137-145) mmol/L Potassium 3.5 (3.5-5.1) mmol/L Chloride 108 H (98-107) mmol/L Carbon Dioxide 18 L (22-30) mmol/L Anion Gap 14.3 (5-15) MEQ/L BUN 18 H (7-17) mg/dL Creatinine 1.06 H (0.52-1.04) mg/dL Estimated GFR 54.2 ML/MIN Glucose 110 H (74-106) mg/dL Calcium 7.8 L (8.4-10.2) mg/dL Iron (37-170) ug/dL Ferritin (11.1-264) ng/mL Total Bilirubin 1.20 (0.2-1.3) mg/dL AST 48 H (14-36) U/L ALT 30 (0-35) U/L Alkaline Phosphatase 171 H (38-126) U/L Serum Total Protein 6.9 (6.3-8.2) g/dL Albumin 3.4 L (3.5-5.0) g/dL Folic Acid Micro Results-Entire Visit: Microbiology 01/05/23 18:10 Urine Culture - Final Catherized Klebsiella Pneumoniae - Radiology Exams Ordered Rad Exams-Entire Visit: Radiology Procedures Category Date Time Status CHEST 1 VIEW (PORTABLE) Routine Exams 01/05/23 23:15 Completed - Procedures and Test Procedures and Tests throughout Hospitalization: Therapy Orders & Screens 01/05/23 23:21 Oxygen Nasal Cannula 2 lpm Comment: Diagnosis: GI bleed 01/06/23 07:31 Respiratory Therapy Assessment DAILY Comment: Diagnosis: GI bleed Discharge Exam General Appearance: no apparent distress Neurologic Exam: alert, oriented x 3, confusion Eye Exam: PERRL Respiratory Exam: normal breath sounds, lungs clear Cardiovascular Exam: regular rate/rhythm Gastrointestinal/Abdomen Exam: soft, normal bowel sounds Wound Assessment: Skin/Wound Assessment Wound/Incision Assessment Start: 01/05/23 22:15 Text: Status: Active Freq: Protocol: Document 01/06/23 03:11 MP (Rec: 01/06/23 03:13 MP [id number]) Wound Photo Photo Taken No Comment: no wounds noted Final Diagnosis/Problem List - Final Discharge Diagnosis/Problem (1) GI bleed Current Visit: Yes Status: Acute Code(s): K92.2 - GASTROINTESTINAL HEMORRHAGE, UNSPECIFIED (2) Anemia Current Visit: Yes Status: Acute Code(s): D64.9 - ANEMIA, UNSPECIFIED (3) UTI (urinary tract infection) Current Visit: Yes Status: Acute Code(s): N39.0 - URINARY TRACT INFECTION, SITE NOT SPECIFIED (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 Current Visit: No Status: Acute Code(s): K74.60 - UNSPECIFIED CIRRHOSIS OF LIVER; I85.10 - SECONDARY ESOPHAGEAL VARICES WITHOUT BLEEDING Telemedicine Encounter - Telemedicine Encounter Telemedicine Encounter: The entirety of this encounter was performed via Telemedicine" - Discharge Disposition: Home, Self-Care Condition: Stable Prescriptions: New Levofloxacin [Levofloxacin 500 MG Tablet] 500 mg PO DAILY 4 Days #4 tab let Fluticasone/Salmeterol 115/21 [Advair Hfa 115/21 Common canister*] 2 puff IH BIDRT inhaler Continue Latanoprost [Xalatan] 1 drops OP HS Ondansetron ODT 4 MG [Zofran Odt 4 mg] 4 mg PO Q4H PRN PRN PRN Reason: Nausea/Vomiting Benzonatate [Tessalon Perle] 100 mg PO Q8HPRN PRN PRN Reason: Cough Sennosides/Docusate Sodium [Senna-S Tablet] 8.6 mg PO DAILY PRN PRN Reason: Constipation Ferrous Sulfate 325 mg [Feosol 325 mg] 325 mg PO BID Potassium Chloride 20 meq PO DAILY Docusate Sodium [Colace] 100 mg PO BID Calcium Carb, Citrate/Vit D3 [Calcium + D3 ER Tablet] 1 each PO BID Fluticasone/Vilanterol [Breo Ellipta 100-25 Mcg INH] 1 puff PO DAILY Acetaminophen 325 mg [Tylenol 325 mg] 2 tab PO Q6H PRN PRN PRN Reason: Fever Bisacodyl 10 mg [Dulcolax 10 MG SUPP] 10 mg RC DAILY PRN PRN Reason: Constipation Cetirizine HCl [Zyrtec] 10 mg PO DAILY Follow up with: EVANGELIST BLANCA [Primary Care Provider] - DODIE MORENO [ACTIVE STAFF] - 1 Week
[2023-01-07 19:08] VITALS: PULSE 84; RESP 18; O2SAT 95
[2023-01-08 06:19] LABS: Vitamin B12 492 pg/mL (232-1245)
[2023-01-08] MEDS ORDERED: Levofloxacin 500 MG Tablet PO SCH (10:00)
--- NOTE | 2023-01-10 10:09 | OP ---
SURGERY DATE/TIME: 01/07/2023 1550 PREOPERATIVE DIAGNOSIS: Anemia. POSTOPERATIVE DIAGNOSIS: Colorectal cancer. PROCEDURES: 1) EGD with clip placed on arteriovenous malformation (AVM) mid stomach. 2) Colonoscopic examination to cecum with multiple cold biopsies of rectosigmoid mass. 3) Internal hemorrhoids thrombosed. SURGEON: Nik Hernandez M.D. ANESTHESIA: MAC. COMPLICATIONS: None. CONDITION: Stable. INDICATION: The patient is being evaluated for anemia. DESCRIPTION OF PROCEDURE: Taken to endoscopy. Left lateral decubitus position Scope introduced. Pharyngoesophageal junction normal. Esophagus normal down to gastroesophageal junction. Gastroesophageal junction satisfactory. Grade 2 gastroesophageal reflux disease. There is an AVM mid posterior body wall which is actually oozing. A clip was placed right in the center of this and it stopped. Pylorus normal. Duodenal bulb normal. Second portion normal. Scope withdrawn, looped back. No bleeding from the AVM. There were no other sites of bleeding. Scope withdrawn. Anal digital examination there is a thrombosed internal hemorrhoid with is external at the moment. Scope advanced to the cecum. A very long and redundant colon. Base of the cecum satisfactory. Ascending, hepatic, transverse, splenic, descending, sigmoid, distal sigmoid proximal rectum there was a 210 degree partially circumferential lesion on the antimesenteric wall that was exophytic and ulcerated in the middle. Five cold biopsies were taken. The lowest extent of this tumor was 12 cm. PLAN: Complete staging work up and biopsies will be obtained. She will be scheduled for semielective surgery.
== END 2023-01-07 20:15 ==
LOC: ED 14:10 → MED SURG 21:09
PROVIDERS: ADMIT Internal Medicine; ATTEND Internal Medicine
DX: K92.2 Gastrointestinal hemorrhage, unspecified (principal); D64.9 Anemia, unspecified; B96.1 Klebsiella pneumoniae [K. pneumoniae] as the cause of diseases classified elsewhere; N39.0 Urinary tract infection, site not specified; K74.60 Unspecified cirrhosis of liver; I85.10 Secondary esophageal varices without bleeding; C18.9 Malignant neoplasm of colon, unspecified; I10 Essential (primary) hypertension; J44.9 Chronic obstructive pulmonary disease, unspecified; K64.5 Perianal venous thrombosis; N17.9 Acute kidney failure, unspecified; Z85.3 Personal history of malignant neoplasm of breast; Z79.899 Other long term (current) drug therapy; Z20.828 Contact with and (suspected) exposure to other viral communicable diseases; Z87.19 Personal history of other diseases of the digestive system
CPT/HCPCS: 00813; 36000; 36410; 36415; 43255; 45380; 71045; 76937; 76942; 80053; 81001; 82607; 82728; 83540; 83605; 83921; 85018; 85025; 85027; 85610; 85730; 86850; 86900; 86901; 87077; 87086; 87186; 93268; 94640; 94760; 99100; 99140; 99284; G0328; G0378; P9612; Q3014; 82274; 82746; J1610; J1956; J2704; A9270-GY